=== PATIENT | female | born 1965 | race Caucasian/White ===

== ENCOUNTER 2017-10-13 01:48 | Observation (INO) | payer MEDICARE, SELFPAY | END 2017-10-14 09:35 | disposition home or self-care (01) | PROVIDERS: Admitting Provider Family Medicine; Emergency Provider Emergency Medicine; Visit Provider Family Medicine | DX: E86.0 Dehydration (principal); A08.11 Acute gastroenteropathy due to Norwalk agent; Z23 Encounter for immunization | CPT/HCPCS: 36415; 74176; 80048; 80053; 82150; 83690; 85025; 87275; 87276; 87507; 90686; 90732; 96365; 96366; 96375; 96376; 99285; G0378; J2405 ==

== ENCOUNTER → 2018-02-05 12:49 | Outpatient (CLI) | payer MEDICARE, SELFPAY ==
--- NOTE | 2018-02-05 12:52 | MM_ITS ---
MM Dig SC mamm implant BI CAD CAD Screening ORDERING PHYSICIAN : Kel Crocker MD PATIENT AGE: 52 years GENDER: Female INDICATION: Routine screening. Taking Premarin previously years but not currently as per history sheet. No new complaints. Bilateral breast implants. Family history. Niece breast cancer age 39 COMPARISON: Previous mammograms: May TECHNIQUE:.Zehra technique utilized. CC & MLO images were obtained of the breast tissue overlying implant, as well as a second set of images including the breast implant. Mammography is inherently limited due to the implants is a could obscure areas of breast R2 CAD reviewed. FINDINGS: ======== RIGHT BREAST:. Stable appearance to the right breast significant new findings. LEFT BREAST: Minimal asymmetric area density noted deep left breast overlying implant - located inferiorly & slightly medial. I believe is most likely stable feature with similar focal fibroglandular density seen on previous mammogram of most evident on 2014.... I would also note asymmetric area of minimal fibroglandular density seen dating back to 2010 -( the mammogram prior to implant placement). Today's technique slightly accentuates this what appears to be fibroglandular density on some of today's views but doubt there is been any significant change and annual follow-up would be adequate .. However with this I would recommend emphasized & encouraged self breast examination and follow-up bilateral mammogram in one year .. If any palpable areas arise a low threshold for ultrasound and spot views would be recommended to further evaluate . I would again note that breast implants do inherently decrease sensitivity of mammography & limit visualization of breast ==IMPRESSION: ======== No new areas of significant concern. Follow-up in one year adequate . Bilateral breast implants with Stable mild asymmetry in the breast tissue overlying the implants I would encourage self breast examination and emphasized and encouraged bilateral follow-up in not over one year for ongoing evaluation.. If any palpable areas arise low threshold for ultrasound and spot views would be encouraged BI-RADS Category: 2 Benign Finding(s) RECOMMENDED FOLLOW-UP: 1YR - 1 YEAR FOLLOW-UP (A letter has been sent to the patient regarding results of the study.)
== END ==
PROVIDERS: Family Provider Nurse Practitioner Family; PCP Nurse Practitioner Family; Visit Provider Obstetrics & Gynecology
DX: Z12.31 Encounter for screening mammogram for malignant neoplasm of breast (principal)
CPT/HCPCS: 77067

== ENCOUNTER → 2018-03-23 08:59 | Outpatient (CLI) | payer MEDICARE, SELFPAY ==
--- NOTE | 2018-03-23 10:00 | XR_ITS ---
EXAM: XR thoracic spine 3V HISTORY: ITS.REASON: UPPER BACK PAIN Comparison: None FINDINGS: There is a the mid thoracic scoliosis convex right measuring 26 degrees with a compensatory lower thoracic scoliosis convex left measuring 15 degrees. There is mild multilevel degenerative disc disease from T3 to T8. No acute fracture or dislocation. No lytic or blastic change. There is lordosis of the lower thoracic spine as well. IMPRESSION: Thoracic scoliosis with degenerative changes. No acute finding
== END ==
PROVIDERS: PCP Nurse Practitioner Family; Visit Provider Nurse Practitioner Family
DX: M54.6 Pain in thoracic spine (principal)
CPT/HCPCS: 72072

== ENCOUNTER → 2018-03-31 07:48 | Outpatient (CLI) | payer MEDICARE, SELFPAY ==
--- NOTE | 2018-03-31 07:56 | MR_ITS ---
MR lumbar spine wo con, MR 3-d myelogram/MRCP HISTORY: Rt sided LBP. RT leg pain. Symptoms getting worse. Bilateral Leg ache. Swelling Bilateral Ankle RT is worse. ITS.REASON: LOW BACK PAIN WITH SCIATICA ORDERING PHYSICIAN: Kika Perkins PATIENT AGE: 53 years Comparison: 10/13/2017 TECHNIQUE: Standard multiplanar multiecho sequences are performed without contrast. 3-D MIP and myelographic images are also rendered and reviewed FINDINGS: The spinal cord ends at the T12 level. L2-L3: There is kyphosis of the upper lumbar spine with 4 millimeters retrolisthesis of L2 on L3. Degenerative disc disease at L2-L3 with bulging disc. Anterior osteophytes are present at that level.There is mild bilateral lateral recess narrowing. L3-L4: Minimal retrolisthesis of L3 on L4 of 3 mm with bulging disc L4-5: Mild concentric bulging disc along with mild facet and ligamentum flavum hypertrophy with mild bilateral foraminal narrowing. The bulging disc slightly eccentric towards the left. L5-S1: Unremarkable. 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 There has been a prior right nephrectomy. IMPRESSION: 1. Kyphosis of the upper lumbar spine with degenerative disc disease at L2-L3 and bulging disc and mild retrolisthesis of L2 on L3 and L3 on L4 with mild bilateral lateral recess narrowing at L2-L3 2. Bulging disc slightly eccentric towards the left with mild bilateral foraminal narrowing at L4-5 3. No canal stenosis or extruded herniated disc
== END ==
PROVIDERS: Family Provider Nurse Practitioner Family; PCP Nurse Practitioner Family; Visit Provider Nurse Practitioner Family
DX: M54.40 Lumbago with sciatica, unspecified side (principal)
CPT/HCPCS: 72148; 76376

== ENCOUNTER → 2018-09-23 11:51 | Outpatient (CLI) | payer MEDICARE, SELFPAY ==
[2018-09-23 13:15] LABS: Anion Gap 13.3 mEq/L (5-15); Blood Urea Nitrogen 8 mg/dL (7-18); Calcium 8.5 mg/dL (8.5-10.1); Carbon Dioxide 28 mmol/L (21.0-32.0); Chloride 104 mmol/L (98-107); Creatinine,Serum 1.01 mg/dL (0.55-1.02); Estimated Glomerular Filt Rate 57 ml/min (>60); GFR (African American) 69 ML/MIN (>60); Glucose 108 mg/dL (74-106); Potassium 4.3 mmoL/L (3.5-5.1); Sodium 141 mmol/L (136-145)
== END ==
PROVIDERS: Visit Provider Urology
DX: Q60.0 Renal agenesis, unilateral (principal); R39.89 Other symptoms and signs involving the genitourinary system
CPT/HCPCS: 36415; 80048

== ENCOUNTER 2019-03-25 19:37 | Observation (INO) | payer MEDICARE, SELFPAY ==
[2019-03-25] VITALS (7 sets, daily range): BP systolic 100–129; BP diastolic 57–77; PULSE 67–75; RESP 17–20; TEMP 36.1–36.9; O2SAT 94–99; BMI 29.7; BMI 24.4
--- NOTE | 2019-03-25 19:47 | XR_ITS ---
XR chest 2V HISTORY: Vomiting weakness 2 days. Smoker. .: chills, weakness ORDERING PHYSICIAN: Augustine Davies MD PATIENT AGE: 54 years Technique: PA and lateral chest COMPARISON: January 2017 & October 2015 CXR 2 view Also T-spine plain films 03/23/2018 FINDINGS: Lungs clear no active disease. No focal pneumonia No pneumothorax. No pleural effusion. . Large dense breasts with bilateral breast implants and & account for diffuse increased density towards lung bases The heart, mary grace, and mediastinal structures satisfactory. The heart is normal in size with normal pulmonary vascularity . scoliosis of thoracic spine again noted and have been previously discussed/reported.. Most notable is the dextroscoliosis at the mid T-spine; also with gradual levoscoliosis lower T-spine.. Lateral film again shows a slight reversal of the normal thoracic curvature these features are stable since at least October 2015 chest 2 view IMPRESSION: ...... Lungs clear with no active disease. Scoliosis T-spine again noted.
--- NOTE | 2019-03-25 19:49 | CT_ITS ---
CT abdomen pelvis wo con INDICATION: Lower abdominal pain. Vomiting. Chills. Weakness symptoms 2 days. Previous cholecystectomy, hysterectomy. Right kidney removal. . ORDERING PHYSICIAN: Augustine Davies MD PATIENT AGE: 54 years COMPARISON: CT abdomen pelvis October 13, 2017 TECHNIQUE: No oral nor IV contrast utilized. No IV contrast utilized as per Dr. Ellington given the patient's GFR 44. Axial images obtained with sagittal and coronal reformats. All CT scans at the facility use one or more dose reduction, viz: automated exposure control, ma/kV adjustment per patient size (including targeted exams where dose is matched to indication, i.e. head), or iterative reconstruction technique. FINDINGS: Lung bases no active disease. Heart normal size. Bilateral breast implants noted. Abdomen/Pelvis:. Lack of oral and IV contrast decreases sensitivity somewhat . Liver. No focal lesion. Borderline fatty changes. Gallbladder. Surgically removed with clips right upper quadrant. No biliary ductal dilatation. Pancreas: Noncontrast images unremarkable Spleen unremarkable. Adrenals unremarkable. tract: Right kidney removed. Left kidney: Satisfactory with perhaps mild hypertrophy. Stable.. No significant retroperitoneal or mesenteric nor pelvic adenopathy. No free fluid abdomen or pelvis Pelvis. Urinary bladder satisfactory with upper normal wall thickness likely due to lack of distention. No free fluid at pelvis. No neck solid masses.. GI tract.: Large bowel. Diffuse wall thickening at the Transverse Colon extending to both flexures that this appearance suggesting colitis. Most likely infectious/inflammatory colitis.: Liquid stool is seen at the right colon with air-fluid levels here and to lesser transverse colon. The terminal ileum in region of appendix unremarkable. Small bowel.:. No dilatation. Areas of upper normal wall thickness small bowel Bones.. Disc changes with slight retrolisthesis of L2 on 3 again noted. Dural ectasia and/or perineural cyst expanding the spinal canal at the sacrum & foramen upper sacrum. The same appearance as was seen on previous study dating back to 2017. ...... IMPRESSION...... 1. Diffuse mild wall thickening transverse colon and flexures. Reflecting infectious or inflammatory colitis involving transverse colon. Liquid stool developing at right colon. 2. Small bowel areas of borderline wall thickening which could reflect associated enteritis . Upper normal fluid No bowel dilatation or obstruction. Appendix & terminal ileum WNL 3. Long-standing Right nephrectomy. No associated findings at right renal fossa. No adenopathy.
[2019-03-25 20:02] LABS: Basophils % 0.1 % (0.1-2.0); Eosinophils % 0.4 % (0.1-12.0); Hematocrit 46.8 % (37.0-47.0); Hemoglobin 15.1 g/dL (12.2-16.2); Mean Corpuscular HGB Conc 32.2 g/dL (31.8-35.4); Mean Corpuscular Hemoglobin 27.9 pg (27.0-31.2); Mean Corpuscular Volume 86.7 fl (81-99); Mean Platelet Volume 10.1 fl (7.4-10.4); Monocytes # 0.3 K/mm3 (0.1-1.0); Monocytes % 3.2 % (1.7-9.3); Neutrophils # 4.5 K/mm3 (1.8-7.8); Neutrophils % 51.3 % (37.0-80.0); Platelet Count 358 K/mm3 (142-424); Red Cell Distribution Width 11.8 % (11.5-17.5); White Blood Count 8.8 K/mm3 (4.8-10.8)
[2019-03-25 20:10] LABS: Microscopic, Urine URINE MICROSCOPIC (MICROSCOPIC)
[2019-03-25 20:11] LABS: Appearance,Urine CLEAR (Clear); Blood, Urine Negative (Negative); Color,Urine YELLOW (Yellow); Glucose,Urine (UA) 1+ (Negative); Ketones,Urine TRACE (Negative); Leukocyte Esterase,Urine Negative (Negative); Nitrate,Urine Negative (Negative); Protein,Urine 2+ (Negative); Specific Gravity, Urine 1.025 (1.005-1.030); Urobilinogen,Urine 0.2 EU/dl (0.2)
[2019-03-25 20:13] LABS: Strep Scrn Group A (Rapid) Negative (Negative)
[2019-03-25 20:13] LABS: Bilirubin,Urine Negative (Negative)
[2019-03-25 20:14] LABS: Amorphous Sediment,Urine 2+ /lpf; Mucus,Urine 2+ /lpf
--- NOTE | 2019-03-25 20:15 | HMH.EDNVD ---
ED Disposition Clinical Impression: Colitis Disposition: Admitted as Observation Condition on Discharge: Good Instructions: DI for Acute Abdomen Referrals: Kika Perkins [Primary Care Provider] - - Critical Care Critical Care Time: No Attestation: On 03/25/19, the high probability of a clinically significant, sudden or life threatening deterioration of the following system(s) required my full and direct attention, intervention and personal management. The time I documented below is in addition to time spent performing reported procedures but includes the following listed in this critical care notation. Medical Decision Making - Medical Records Medical records reviewed: Yes: I reviewed the patient's medical records. - Fernando Inquiry Pt receiving controlled substance: No Vital Signs: 03/25/19 19:38 03/25/19 19:58 03/25/19 20:25 Temperature 97.4 F L 97.0 F L Temperature Source Oral Rectal Pulse Rate [Right Radial] 75 70 Respiratory Rate 18 18 Blood Pressure [Right Arm] 114/64 129/77 Blood Pressure Mean [Right Arm] 80 94 Blood Pressure Source [Right Arm] Automatic Cuff Blood Pressure Position [Right Arm] Sitting 02 Sat by Pulse Oximetry 99 97 Oxygen Delivery Method Room Air 03/25/19 20:59 03/25/19 22:00 Temperature Temperature Source Pulse Rate [Right Radial] 69 70 Respiratory Rate 18 20 Blood Pressure [Right Arm] 120/65 100/57 L Blood Pressure Mean [Right Arm] 83 71 Blood Pressure Source [Right Arm] Automatic Cuff Blood Pressure Position [Right Arm] Sitting 02 Sat by Pulse Oximetry 97 94 L Oxygen Delivery Method Room Air - Lab Data Lab results reviewed: Yes: I reviewed the patient's lab results. Lab Results 03/25/19 19:55: WBC 8.8, RBC 5.40, Hgb 15.1, Hct 46.8, MCV 86.7, MCH 27.9, MCHC 32.2, RDW 11.8, Plt Count 358, MPV 10.1, Neut % (Auto) 51.3, Lymph % (Auto) 45.0, [place] % (Auto) 3.2, Eos % (Auto) 0.4, Baso % (Auto) 0.1, Neut # (Auto) 4.5, Lymph # (Auto) 4.0, [place] # (Auto) 0.3, Eos # (Auto) 0.0, Baso # (Auto) 0.0 03/25/19 19:55: Sodium 143, Potassium 3.5, Chloride 104, Carbon Dioxide 20 L, Anion Gap 22.5 H, BUN 11, Creatinine 1.27 H, Estimated Creat Clear 68, Estimated GFR 44 L, Est GFR ( Amer) 53 L, Glucose 198 H, Calcium 9.0, Total Bilirubin 0.5, AST 17, ALT 15, Alkaline Phosphatase 83, Total Protein 6.7, Albumin 3.3 L, Globulin 3.4 H, Albumin/Globulin Ratio 1.0 L, Amylase 61, Lipase 91 03/25/19 19:55: Lactate 2.6 H 03/25/19 19:55: Influenza Type A Ag Negative, Influenza Type B Ag Negative 03/25/19 19:55: Group A Strep Rapid Negative 03/25/19 20:07: Urine Color Yellow, Urine Appearance Clear, Urine pH 7.0, Ur Specific [place] 1.025, Urine Protein 2+, Urine Glucose (UA) 1+, Urine Ketones Trace, Urine Blood Negative, Urine Nitrate Negative, Urine Bilirubin Negative, Urine Urobilinogen 0.2, Ur Leukocyte Esterase Negative, Ur Squamous Epith Cells 10-20, Amorphous Sediment 2+, Urine Mucus 2+ Result diagrams: 03/25/19 19:55 03/25/19 19:55 Orders (Tests/Meds): ED MEDICATIONS Generic Name Dose Route Start Last Admin Trade Name Freq PRN Reason Stop Dose Admin Sodium Chloride 1,000 mls @ 999 mls/hr 03/25/19 20:00 03/25/19 20:15 Sod Chlor 0.9% 1000ml Bag IV 03/25/19 21:00 999 mls/hr .Q1H1M AUDIE Administration Sodium Chloride 1,000 mls @ 999 mls/hr 03/25/19 21:15 03/25/19 21:42 Sod Chlor 0.9% 1000ml Bag IV 03/25/19 22:15 999 mls/hr .Q1H1M AUDIE Administration Discontinued Medications Generic Name Dose Route Start Last Admin Trade Name Freq PRN Reason Stop Dose Admin Acetaminophen 1,000 mg 03/25/19 22:08 03/25/19 22:11 Tylenol 500mg Tablet PO 03/25/19 22:09 1,000 mg ONCE ONE Administration ORDERS Category Date Time Status CT abdomen pelvis wo con Stat Cat Scan 03/25/19 19:49 Taken XR chest 2V Stat Exams 03/25/19 19:47 Taken CRP [C-Reactive Protein] Stat Lab 03/25/19 22:28 Ordered Diarrhea 6-11 Panel, Cdiff PCR Stat Lab
[2019-03-25 20:23] LABS: Alanine Aminotransferase 15 U/L (12-78); Albumin Level 3.3 gm/dL (3.4-5.0); Alkaline Phosphatase 83 U/L (46-116); Amylase 61 U/L (25-115); Anion Gap 22.5 mEq/L (5-15); Aspartate Amino Transferase 17 U/L (15-37); Bilirubin,Total 0.5 mg/dL (0.2-1.0); Blood Urea Nitrogen 11 mg/dL (7-18); Carbon Dioxide 20 mmol/L (21.0-32.0); Chloride 104 mmol/L (98-107); Creatinine Clearance Estimated 68 mL/min (50-200); Creatinine,Serum 1.27 mg/dL (0.55-1.02); Estimated Glomerular Filt Rate 44 ml/min (>60); GFR (African American) 53 ML/MIN (>60); Globulin 3.4 gm/dl (1.3-3.2); Glucose 198 mg/dL (74-106); Lipase 91 u/L (73-393); Potassium 3.5 mmoL/L (3.5-5.1); Sodium 143 mmol/L (136-145); Total Protein,Serum 6.7 gm/dL (6.4-8.2)
[2019-03-25 20:29] LABS: Lactic Acid 2.6 mmol/L (0.4-2.0)
--- NOTE | 2019-03-25 22:33 | PC.NURSE ---
DR GODFREY CONSULTING WITH DR PEREA CONCERNING ADMIT AT THIS TIME.
[2019-03-25 22:40] LABS: C-Reactive Protein 2.7 mg/L (0.0-0.9)
[2019-03-25 23:13] LABS: Erythrocyte Sedimentation Rate 2 mm/hr (0-30)
--- NOTE | 2019-03-25 23:26 | PC.NURSE ---
LATE ENTRY: @ 2315 ARRIVED TO FLOOR, PER W/C, FROM ED.
[2019-03-25 23:58] LABS: Reflex Lactic Add Lactic Reflex
--- NOTE | 2019-03-25 23:59 | PC.NURSE ---
ON ADMISSION PT REPORTS I TOOK A COLD/SINUS MEDICATION AND CIPROFLOXACIN TO HELP WITH MY SYMPTOMS BUT AFTER I TOOK THOSE MEDICINES I FELT BURNING AND ITCHING ALL OVER THEN, SWELLING IN MY MOUTH AND I COULDN'T BREATHE. PT REPORTS TO THIS RN THAT SHE REPORTED THIS TO ER PHYSICIAN. PT UNABLE TO IDENTIFY THE SPECIFIC COLD AND SINUS MEDICATION THAT SHE TOOK AND COULD ONLY IDENTIFY THE CIPROFLOXACIN, CIPRO WAS ADDED AN ALLERGY BASED OF THIS INFORMATION DISCOVERED ON ADMISSION. THIS RN REPORTED THIS TO PRIMARY RN, Irene KUMAR.
[2019-03-26] VITALS: O2SAT 97
[2019-03-26 00:43] LABS: Lactic Acid Follow Up (RFLX 1) 1.7 (0.4-2.0)
[2019-03-26 04:00] VITALS: BP 124/68; PULSE 57; RESP 18; TEMP 36.9; O2SAT 96
--- NOTE | 2019-03-26 04:10 | PC.NURSE ---
Pt. has rested some since admission. Is alert and oriented with pt. being very fatigued and lethargic. Pt. has complained of a headache which is being treated by medication given from DEC. Pt. has not complained of any N/V at this time. Will continue to monitor.
[2019-03-26 05:07] VITALS: BMI 24.4
[2019-03-26 06:22] LABS: Basophils % 0.2 % (0.1-2.0); Eosinophils # 0.2 K/mm3 (0.0-0.4); Eosinophils % 1.7 % (0.1-12.0); Hematocrit 46.5 % (37.0-47.0); Lymphocytes # 1.4 K/mm3 (0.7-4.5); Lymphocytes % 15.8 % (10-50); Mean Corpuscular HGB Conc 32.3 g/dL (31.8-35.4); Mean Corpuscular Hemoglobin 28.1 pg (27.0-31.2); Mean Corpuscular Volume 86.8 fl (81-99); Mean Platelet Volume 9.7 fl (7.4-10.4); Monocytes # 0.5 K/mm3 (0.1-1.0); Monocytes % 5.2 % (1.7-9.3); Neutrophils # 6.7 K/mm3 (1.8-7.8); Neutrophils % 77.1 % (37.0-80.0); Platelet Count 127 K/mm3 (142-424); Red Blood Count 5.36 M/mm3 (4.20-5.40); White Blood Count 8.7 K/mm3 (4.8-10.8)
[2019-03-26 06:33] LABS: Anion Gap 15.8 mEq/L (5-15); Blood Urea Nitrogen 10 mg/dL (7-18); Carbon Dioxide 23 mmol/L (21.0-32.0); Chloride 109 mmol/L (98-107); Creatinine Clearance Estimated 75 mL/min (50-200); Creatinine,Serum 0.95 mg/dL (0.55-1.02); Estimated Glomerular Filt Rate 61 ml/min (>60); GFR (African American) 74 ML/MIN (>60); Glucose 91 mg/dL (74-106); Magnesium 1.8 mg/dL (1.4-2.2); Potassium 3.8 mmoL/L (3.5-5.1); Sodium 144 mmol/L (136-145)
[2019-03-26 06:46] LABS: Calcium 7.6 mg/dL (8.5-10.1)
--- NOTE | 2019-03-26 07:33 | PC.NURSE ---
REPORT GIVEN TO Senthil JONES
--- NOTE | 2019-03-26 07:54 | HMH.HPDC ---
General - General Admission date:: 03/25/19 Discharge date: 03/26/19 *Admission Date: 03/25/19 *Chief complaint: Vomiting and diarrhea *History of present illness: 54-year-old female with glaucoma presented to the emergency department with 2 days of illness described as beginning with unrelenting vomiting beginning early morning and continuing throughout the day on . Last episode of vomiting was evening. Shortly after vomiting ceased patient developed profuse diarrhea which lasted most of the day Thursday. Patient very very weak and had developed headache. She came to our emergency department for evaluation. Patient also reported sinusitis type symptoms which are recurrent and chronic for her. She had taken an [id number] decongestant and cough medication which resulted in flushing and appearance of a rash on the chest. By the time she arrived at the emergency department rash was absent. In the ER patient underwent evaluation and was given large volume of fluids. Because of what was described as persistent retching and inability to keep down fluids at that time patient was admitted for observation. Patient does clarify this morning the last time she vomited was and she has held down small amounts of liquids since that time. She denies sick contacts. Diarrhea panel was ordered but patient has not had any diarrhea since admission either. CT scan performed in the ER showed some changes consistent with possible colitis in the transverse colon. This morning patient denies abdominal pain [facility] History I have reviewed the patient's past medical history: Yes Medical History: Reports:: Depression, Kidney Stones Denies:: Cancer, Diabetes Mellitus Type 1, Diabetes Mellitus Type 2, MRSA *Have you ever received a pneumonia vaccine?: No *Have you received a flu vaccine this season?: No Other Medical History: Reports: Glaucoma, Other Comment:: Glaucoma Other Surgeries: Yes: Cholecystectomy, Hysterectomy-Total, Other Amputation: No Fractures: No - *Social History Educational Level: Completed High School Smoking Status: Current every day smoker Tobacco Type: cigarettes # Packs/Day (cigarettes): 1 Alcohol Intake: never Substance Use Type: denies use *Occupational Status:: disabled Housing: house Household Members: spouse *Travel in the last 8 weeks: None - Psychiatric History Expresses thoughts of harming self/others: None Suicide Plan Description: No Plan Pschychiatric History:: Reports:: Depression Family Hx:: Hypertension, Diabetes, Coronary Artery Disease Review of Systems - Constitutional Reports body ache(s), Denies chills, Denies excessive sweating, Denies fatigue, Denies fever(s) - Eyes Reports blurry vision - ENT Reports dry mouth, Reports nasal congestion, Reports nasal discharge, Reports sinus pressure, Reports sore throat, Denies mouth pain - *Cardiovascular Denies chest pain - *Respiratory Denies chest congestion, Denies cough - *Neurologic Denies seizure-like activity Exam Vital signs and Labs for Last 24 Hours: Temp Pulse Resp BP Pulse Ox 98.5 F 57 L 18 124/68 96 03/26/19 04:00 03/26/19 04:00 03/26/19 04:00 03/26/19 04:00 03/26/19 04:00 Laboratory Results - last 24 hr 03/25/19 19:55: WBC 8.8, RBC 5.40, Hgb 15.1, Hct 46.8, MCV 86.7, MCH 27.9, MCHC 32.2, RDW 11.8, Plt Count 358, MPV 10.1, Neut % (Auto) 51.3, Lymph % (Auto) 45.0, [place] % (Auto) 3.2, Eos % (Auto) 0.4, Baso % (Auto) 0.1, Neut # (Auto) 4.5, Lymph # (Auto) 4.0, [place] # (Auto) 0.3, Eos # (Auto) 0.0, Baso # (Auto) 0.0 03/25/19 19:55: Sodium 143, Potassium 3.5, Chloride 104, Carbon Dioxide 20 L, Anion Gap 22.5 H, BUN 11, Creatinine 1.27 H, Estimated Creat Clear 68, Estimated GFR 44 L, Est GFR ( Amer) 53 L, Glucose 198 H, Calcium 9.0, Total Bilirubin 0.5, AST 17, ALT 15, Alkaline Phosphatase 83, Total Protein 6.7, Albumin 3.3 L, Globulin 3.4 H, Albumin/Globulin Ratio 1.0 L, Amylase 61, Lipase
--- NOTE | 2019-03-26 07:58 | P.HPDS_ITS ---
General - General Admission date:: 03/25/19 Discharge date: 03/26/19 *Admission Date: 03/25/19 *Chief complaint: Vomiting and diarrhea *History of present illness: 54-year-old female with glaucoma presented to the emergency department with 2 days of illness described as beginning with unrelenting vomiting beginning early morning and continuing throughout the day on . Last episode of vomiting was evening. Shortly after vomiting ceased patient developed profuse diarrhea which lasted most of the day Thursday. Patient very very weak and had developed headache. She came to our emergency department for evaluation. Patient also reported sinusitis type symptoms which are recurrent and chronic for her. She had taken an [id number] decongestant and cough medication which resulted in flushing and appearance of a rash on the chest. By the time she arrived at the emergency department rash was absent. In the ER patient underwent evaluation and was given large volume of fluids. Because of what was described as persistent retching and inability to keep down fluids at that time patient was admitted for observation. Patient does clarify this morning the last time she vomited was and she has held down small amounts of liquids since that time. She denies sick contacts. Diarrhea panel was ordered but patient has not had any diarrhea since admission either. CT scan performed in the ER showed some changes consistent with possible colitis in the transverse colon. This morning patient denies abdominal pain [facility] History I have reviewed the patient's past medical history: Yes Medical History: Reports:: Depression, Kidney Stones Denies:: Cancer, Diabetes Mellitus Type 1, Diabetes Mellitus Type 2, MRSA *Have you ever received a pneumonia vaccine?: No *Have you received a flu vaccine this season?: No Other Medical History: Reports: Glaucoma, Other Comment:: Glaucoma Other Surgeries: Yes: Cholecystectomy, Hysterectomy-Total, Other Amputation: No Fractures: No - *Social History Educational Level: Completed High School Smoking Status: Current every day smoker Tobacco Type: cigarettes # Packs/Day (cigarettes): 1 Alcohol Intake: never Substance Use Type: denies use *Occupational Status:: disabled Housing: house Household Members: spouse *Travel in the last 8 weeks: None - Psychiatric History Expresses thoughts of harming self/others: None Suicide Plan Description: No Plan Pschychiatric History:: Reports:: Depression Family Hx:: Hypertension, Diabetes, Coronary Artery Disease Review of Systems - Constitutional Reports body ache(s), Denies chills, Denies excessive sweating, Denies fatigue, Denies fever(s) - Eyes Reports blurry vision - ENT Reports dry mouth, Reports nasal congestion, Reports nasal discharge, Reports sinus pressure, Reports sore throat, Denies mouth pain - *Cardiovascular Denies chest pain - *Respiratory Denies chest congestion, Denies cough - *Neurologic Denies seizure-like activity Exam Vital signs and Labs for Last 24 Hours: Temp Pulse Resp BP Pulse Ox 98.5 F 57 L 18 124/68 96 03/26/19 04:00 03/26/19 04:00 03/26/19 04:00 03/26/19 04:00 03/26/19 04:00 Laboratory Results - last 24 hr 03/25/19 19:55: WBC 8.8, RBC 5.40, Hgb 15.1, Hct 46.8, MCV 86.7, MCH 27.9, MCHC 32.2, RDW 11.8, Plt Count 358, MPV 10.1, Neut % (Auto) 51.3, Lymph % (Auto) 45.0, [place] % (Auto) 3.2, Eos % (Auto) 0.4, Baso % (Auto) 0.1, Neut # (Auto) 4.5
[2019-03-26 08:00] VITALS: BP 138/73; PULSE 67; RESP 17; TEMP 36.9; O2SAT 96
--- NOTE | 2019-03-26 11:31 | HMH.PHAINT ---
DISCHARGE COUNSELING COMPLETED ON PATIENT. ONLY NEW PRESCRIPTION IS PHENERGAN TO BE TAKEN NEEDED FOR NAUSEA AND VOMITING. PATIENT IS TO CONTINUE ALL OTHER HOME MEDICATIONS. VERIFIED THAT NEW PRESCRIPTION WAS PRINTED OFF. -JESUS PIÑA PHARMD
--- NOTE | 2019-03-26 18:13 | PC.NURSE ---
Went over dc instructions with patient and family member; Dc instruction papers and prescription placed in pt's dc folder and placed on table. Showed pt and family member that dc folder was on table and both verbalized understanding; Dc folder found in room after pt left and was placed in banquet stewardess station. Pt called to inquire about it and I advised her it was at the banquet stewardess station along with her prescription. She said her would be in later to pick it up.
[2019-03-26 18:35] LABS: Amphetamine/Metha Screen,Urine Negative ng/mL (<1000); Barbiturates Screen,Urine Negative ng/mL (<200); Benzodiazepines Screen,Urine Negative ng/mL (<200); Cannabinoid Screen,Urine Negative ng/mL (<50); Cocaine Screen,Urine Negative ng/mL (<300); Methadone Screen,Urine Negative ng/mL (<300); Opiate Screen,Urine Positive ng/mL (<300); Phencyclidine Screen,Urine Negative ng/mL (<25)
== END 2019-03-26 09:28 | disposition home or self-care (01) ==
LOC: ER 22:37 → 2ND 22:47
PROVIDERS: Admitting Provider Family Medicine; Emergency Provider Emergency Medicine; PCP Nurse Practitioner Family; Visit Provider Family Medicine
DX: K52.89 Other specified noninfective gastroenteritis and colitis (principal); A04.8 Other specified bacterial intestinal infections; Z16.39 Resistance to other specified antimicrobial drug; Z79.899 Other long term (current) drug therapy; Z72.0 Tobacco use
CPT/HCPCS: 36415; 71046; 74176; 80048; 80053; 80305; 81001; 82150; 83605; 83690; 83735; 85025; 85651; 86140; 87040; 87077; 87186; 87275; 87276; 87430; 96365; 96367; 99285; G0378

== ENCOUNTER 2020-12-27 02:27 | Emergency (ER) | payer MEDICARE, SELFPAY ==
[2020-12-27 02:28] VITALS: BP 123/65; PULSE 84; RESP 14; TEMP 37.2; O2SAT 97; BMI 19.6
--- NOTE | 2020-12-27 02:45 | HMH.EDALLER ---
ED Disposition Clinical Impression: Adverse drug effect Qualifiers: Encounter type: initial encounter Qualified Code(s): T50.905A - Adverse effect of unspecified drugs, medicaments and biological substances, initial encounter Disposition: Home, Self-Care Condition on Discharge: Good Instructions: DI for Adverse Drug Reaction -- Other Additional Instructions: fluids and see pcp as needed Referrals: Kika Perkins [Primary Care Provider] - - Critical Care Critical Care Time: No Attestation: On 12/27/20, the high probability of a clinically significant, sudden or life threatening deterioration of the following system(s) required my full and direct attention, intervention and personal management. The time I documented below is in addition to time spent performing reported procedures but includes the following listed in this critical care notation. Medical Decision Making - Medical Records Medical records reviewed: Yes: I reviewed the patient's medical records. - Fernando Inquiry Pt receiving controlled substance: No Vital Signs: 12/27/20 02:28 Temperature 99.0 F Temperature Source Oral Pulse Rate [Right] 84 Respiratory Rate 14 Blood Pressure [Right Arm] 123/65 Blood Pressure Mean [Right Arm] 84 02 Sat by Pulse Oximetry 97 Oxygen Delivery Method Room Air - Lab Data Lab results reviewed: Yes: I reviewed the patient's lab results. Lab Results 12/27/20 02:55: WBC 6.3, RBC 4.17 L, Hgb 12.3, Hct 38.1, MCV 91.5, MCH 29.5, MCHC 32.2, RDW 12.3, Plt Count 134 L, MPV 9.2, Neut % (Auto) 84.3 H, Lymph % (Auto) 6.9 L, [place] % (Auto) 7.5, Eos % (Auto) 1.0, Baso % (Auto) 0.3, Neut # (Auto) 5.3, Lymph # (Auto) 0.4 L, [place] # (Auto) 0.5, Eos # (Auto) 0.1, Baso # (Auto) 0.0 12/27/20 02:55: Sodium 136, Potassium 4.2, Chloride 105, Carbon Dioxide 27, Anion Gap 8.2, BUN 12, Creatinine 1.00, Estimated Creat Clear 65, Estimated GFR 57 L, Est GFR ( Amer) 69, Glucose 108 H, Calcium 9.0, Total Bilirubin 0.4, AST 21, ALT 11 L, Alkaline Phosphatase 75, Total Protein 6.8, Albumin 4.1, Globulin 2.7, Albumin/Globulin Ratio 1.5 Result diagrams: 12/27/20 02:55 12/27/20 02:55 Orders (Tests/Meds): ED MEDICATIONS Generic Name Dose Route Start Last Admin Trade Name Freq PRN Reason Stop Dose Admin Sodium Chloride 1,000 mls @ 999 mls/hr 12/27/20 02:45 12/27/20 02:49 Sod Chlor 0.9% 1000ml Bag IV 12/27/20 03:45 999 mls/hr .Q1H1M AUDIE Administration Discontinued Medications Generic Name Dose Route Start Last Admin Trade Name Freq PRN Reason Stop Dose Admin Acetaminophen 1,000 mg 12/27/20 02:44 12/27/20 02:51 Acetaminophen 500mg Tab PO 12/27/20 02:45 Not Given ONCE ONE Ketorolac Tromethamine 30 mg 12/27/20 03:32 12/27/20 03:34 Ketorolac 30mg/Ml Vial IV 12/27/20 03:33 30 mg ONCE ONE Administration Ondansetron HCl 4 mg 12/27/20 02:44 12/27/20 02:49 Ondansetron 4mg/2ml Vial IV 12/27/20 02:45 4 mg ONCE ONE Administration - Reevaluation(s) Time: 03:34 Reevaluation #1: improved Allergic React/Insect Bite HPI - General Chief complaint: Weakness Stated complaint: poss reaction to J&J covid vaccine Time Seen by Provider: 12/27/20 02:35 Mode of Arrival - ED Triage: Ambulatory Source of Information: Patient, Relative, Medical Record Limitations: No Limitations - History of Present Illness HPI narrative: had covid-19 vaccine today now with fever and feels flu-like - MD complaint: other ( reaction to covid-19 vaccine ) Onset (ago): hour(s) Exposure: medication Treatment prior to arrival: other (tyenol) Allergies/Adverse Reactions: Allergies Allergy/AdvReac Type Severity Reaction Status Date / Time ciprofloxacin Allergy Severe Difficulty Verified 07/19/20 15:16 Breathing tramadol Allergy Verified 12/27/20 02:47 Severity: moderate - Related Data Home Medications Medication Instructions Recorded Confirmed gabapentin 600 mg tablet 900 mg PO TID ta
[2020-12-27 03:04] LABS: Basophils % 0.3 % (0.1-2.0); Eosinophils # 0.1 K/mm3 (0.0-0.4); Hematocrit 38.1 % (37.0-47.0); Hemoglobin 12.3 g/dL (12.2-16.2); Lymphocytes # 0.4 K/mm3 (0.7-4.5); Lymphocytes % 6.9 % (10-50); Mean Corpuscular HGB Conc 32.2 g/dL (31.8-35.4); Mean Corpuscular Hemoglobin 29.5 pg (27.0-31.2); Mean Corpuscular Volume 91.5 fl (81-99); Mean Platelet Volume 9.2 fl (7.4-10.4); Monocytes # 0.5 K/mm3 (0.1-1.0); Monocytes % 7.5 % (1.7-9.3); Neutrophils # 5.3 K/mm3 (1.8-7.8); Neutrophils % 84.3 % (37.0-80.0); Platelet Count 134 K/mm3 (142-424); Red Blood Count 4.17 M/mm3 (4.20-5.40); Red Cell Distribution Width 12.3 % (11.5-17.5); White Blood Count 6.3 K/mm3 (4.8-10.8)
[2020-12-27 03:10] LABS: Chloride 105 mmol/L (98-107); Potassium 4.2 mmoL/L (3.5-5.1); Sodium 136 mmol/L (136-145)
[2020-12-27 03:13] LABS: Alanine Aminotransferase 11 U/L (12-78); Albumin Level 4.1 g/dl (3.5-5.0); Albumin/Globulin Ratio 1.5 (1.1-1.8); Alkaline Phosphatase 75 U/L (38-126); Anion Gap 8.2 mEq/L (5-15); Aspartate Amino Transferase 21 U/L (14-36); Bilirubin,Total 0.4 mg/dl (0.2-1.3); Blood Urea Nitrogen 12 mg/dl (7-17); Carbon Dioxide 27 mmol/L (22.0-30.0); Creatinine Clearance Estimated 65 mL/min (50-200); Estimated Glomerular Filt Rate 57 ml/min (>60); GFR (African American) 69 ML/MIN (>60); Globulin 2.7 g/dL (1.3-3.2); Glucose 108 mg/dl (74-100); Total Protein,Serum 6.8 g/dl (6.3-8.2)
[2020-12-27 03:43] VITALS: BP 123/65; PULSE 84; RESP 14; TEMP 36.9; O2SAT 97
== END 2020-12-27 03:46 | disposition home or self-care (01) ==
PROVIDERS: Emergency Provider Emergency Medicine; PCP Nurse Practitioner Family
DX: R50.83 Postvaccination fever (principal); T50.B95A Adverse effect of other viral vaccines, initial encounter; Y92.009 Unspecified place in unspecified non-institutional (private) residence as the place of occurrence of the external cause; F33.1 Major depressive disorder, recurrent, moderate; Z87.442 Personal history of urinary calculi; F17.210 Nicotine dependence, cigarettes, uncomplicated
CPT/HCPCS: 80053; 85025; 96365; 96375; 99282; J2405

== ENCOUNTER → 2021-02-05 14:29 | Outpatient (CLI) | payer MEDICARE, SELFPAY ==
--- NOTE | 2021-02-05 | US_ITS ---
APPROVED REPORT Indications Claudication: Bilaterally Rest Pain: Bilaterally Bilateral pulse weakness Pressures/Indices Right Indices Left Indices Brachial 132.00 mmHg Brachial 122.00 mmHg Low Thigh 127.00 mmHg 0.96 Low Thigh 132.00 mmHg 1.00 Calf 129.00 mmHg 0.98 Calf 138.00 mmHg 1.05 Ankle(PT) 146.00 mmHg 1.11 Ankle(PT) 137.00 mmHg 1.04 Ankle(DP) 141.00 mmHg 1.07 Ankle(DP) 140.00 mmHg 1.06 Digit 117.00 mmHg 0.89 Digit 131.00 mmHg 0.99 Findings RT SHASTA=1.11 LT SHASTA=1.06 RT TPI=0.89 LT TPI=0.99 Conclusion Normal appearing resting noninvasive lower extremity arterial study. Electronically signed by : Dallin Ellington MD 02/05/2021 18:32:51
== END ==
PROVIDERS: PCP Nurse Practitioner Family; Visit Provider Nurse Practitioner Family
DX: R09.89 Other specified symptoms and signs involving the circulatory and respiratory systems (principal)
CPT/HCPCS: 93923

== ENCOUNTER → 2022-11-06 11:32 | Outpatient (CLI) | payer MEDICARE, SELFPAY ==
--- NOTE | 2022-11-06 11:38 | XR_ITS ---
FINAL REPORT CLINICAL HISTORY: right foot pain FINDINGS: AP, oblique and lateral views of the right foot were obtained. There is no prior exam for comparison. There is no acute fracture or dislocation. The joint spaces are preserved. Soft tissues are normal. IMPRESSION: No acute osseous abnormality of the right foot. Reviewed, Interpreted and Dictated by Carolyn Gtz MD Transcribed by Katerine Ramos Authenticated and [facility]
== END ==
PROVIDERS: PCP Nurse Practitioner Family; Visit Provider Nurse Practitioner Family
DX: M79.671 Pain in right foot (principal)
CPT/HCPCS: 73630

== ENCOUNTER 2023-02-25 14:08 | Emergency (ER) | payer MEDICARE, SELFPAY ==
--- NOTE | 2023-02-25 14:18 | EXP.UTC ---
Discharge Plan Disposition Patient Disposition: Home, Self-Care Condition: Good Prescriptions Prescriptions: No Action gabapentin 600 mg tablet 600 mg PO HS bupropion HCl [Wellbutrin XL] 300 mg tablet extended release 24 hr 300 mg PO DAILY buspirone 10 mg tablet 10 mg PO BID sumatriptan succinate 100 mg tablet 100 mg PO ONCE PRN omeprazole 40 mg capsule,delayed release(DR/EC) 40 mg PO DAILY oxycodone-acetaminophen 10-325 mg tablet 1 tab PO .COMPLEX Rx Instructions: 1 tab orally 5x daily; amlodipine 10 mg tablet 10 mg PO DAILY sertraline 50 mg tablet 50 mg PO DAILY montelukast 10 mg tablet 10 mg PO QPM estradiol 2 mg tablet See Rx Instructions .ROUTE .COMPLEX Qty: 90 0RF Dose Instruction: TAKE 1 TABLET EVERY DAY Rx Instructions: TAKE 1 TABLET EVERY DAY Referrals Follow up/Referrals: Kika Perkins [Primary Care Provider] - See instructions Activity Restrictions/Add. Instructions Additional Instructions/Restrictions: Follow up with your regular doctor to discuss your leg swelling. Sometimes this can be a medication side effect. Sometimes it can be other causes. No one but your primary care physician or your soldering inspector should change the blood pressure medication you are on. You will need your regular doctor to possibly switch your blood pressure medication to see if that helps your swelling. Eat a low sodium diet. Get plenty of exercise. Walking will help your legs pump the fluid back up your legs. GO TO THE ER FOR ANY WORSENING SYMPTOMS Clinical Impressions Clinical Impression: Leg edema Instructions Patient Instructions: DI for Peripheral Edema -- Bilateral, Low-Sodium Diet Discharge ED Provider: Dario Day [facility] General Stated complaint: feet and ankles swollen, pain Time Seen by Provider: 02/25/23 14:17 History of Present Illness Provider Complaint: She states that for the past 1 year she has had bilateral leg edema. She denies other complaints. She denies chest pain and shortness of breath. She denies any recent worsening of her swelling symptoms. Related Data Home Medications Medication Instructions Recorded Confirmed montelukast 10 mg tablet 10 mg PO QPM allergies 09/23/18 12/30/22 bupropion HCl 300 mg 24 hr tablet, 300 mg PO DAILY 05/16/22 12/30/22 extended release (Wellbutrin XL) buspirone 10 mg tablet 10 mg PO BID 05/16/22 12/30/22 amlodipine 10 mg tablet 10 mg PO DAILY 12/30/22 12/30/22 gabapentin 600 mg tablet 600 mg PO HS Pain 12/30/22 12/30/22 omeprazole 40 mg capsule,delayed 40 mg PO DAILY 12/30/22 12/30/22 release oxycodone-acetaminophen 10 mg-325 1 tab PO .COMPLEX 12/30/22 12/30/22 mg tablet sertraline 50 mg tablet 50 mg PO DAILY 12/30/22 12/30/22 sumatriptan succinate 100 mg tablet 100 mg PO ONCE PRN 12/30/22 12/30/22 Previous Rx's Medication Instructions Recorded estradiol 2 mg tablet See Rx Instructions .Route 01/22/23 .COMPLEX #90 tabs Allergies Allergy/AdvReac Type Severity Reaction Status Date / Time ciprofloxacin Allergy Severe Difficulty Verified 02/25/23 14:29 Breathing tramadol Allergy Verified 02/25/23 14:29 [facility] Disclaimer: The information contained in this section may have been updated after the patient was seen, as this information can be updated by other users. Medical History History of cataract History of deviated nasal septum Legally blind Surgical History History of breast implant History of LAVH History of right nephrectomy Social History Smoking Status: Current every day smoker tobacco type: cigarettes packs per day: 1 alcohol intake: never substance use type: denies use current occupational status: disabled Travel in the last 8 weeks: None hous
[2023-02-25 14:26] VITALS: BP 142/67; PULSE 61; RESP 20; TEMP 36.8; O2SAT 96; BMI 20.3
[2023-02-25 14:53] VITALS: BP 142/67; PULSE 61; RESP 20; TEMP 36.8
== END 2023-02-25 14:55 | disposition home or self-care (01) ==
PROVIDERS: Emergency Provider Nurse Practitioner Family; PCP Nurse Practitioner Family
DX: R60.0 Localized edema (principal); F17.210 Nicotine dependence, cigarettes, uncomplicated
CPT/HCPCS: 99203; 99212; G0463

== ENCOUNTER → 2023-05-06 10:15 | Outpatient (POV) | payer MEDICARE, SELFPAY ==
--- NOTE | 2023-05-06 11:09 | EXP.PAIN.OV ---
HPI Data of Consult Patient: new to practice Consult date: 05/06/23 Requesting Physician: Adilia Huffman APRN Primary Care Provider: Kika Perkins Consult Narrative Reason for consult: Neck pain, bilateral upper extremity pain, low back pain, bilateral lower e History of present illness: Ms. Schulz is a 58 year old female who presents today as a new patient. She is a self-referral. Today she rates her pain a 6 out of 10. Patient states that she has pain in her neck with radiating symptoms into her upper extremities as well as low back pain with radiating symptoms to her lower extremities. Patient has stated this is gone on for years and progressively worsened over time. Patient denies any specific trauma or injury that initially led to her symptoms. Patient does describe this as an aching, throbbing sensation with numbness and tingling. She does state that she has tried [id number] medications such as Tylenol and ibuprofen along with heat and ice and topicals with minimal improvement. Patient has been to physical therapy multiple times in the past with no additional relief. Patient has also been with pain management in [place] as well as in [place] where she did do multiple injections however those did not provide significant relief. Patient has been to a orthospine doctor, Oscar Huffman who was recommending surgery however she states that she was not interested in this option. She is coming to our office today because she states her current doctor from [place] is retiring. Patient does states she is currently managed with Percocet 10 mg 5 times a day and gabapentin 600 mg 3 times a day. Patient denies any recent imaging. Her Fernando is [phone]. Its been reviewed and appropriate. CC: Adilia Huffman APRN [facility] Disclaimer: The information contained in this section may have been updated after the patient was seen, as this information can be updated by other users. Medical History History of cataract History of deviated nasal septum Legally blind Surgical History History of breast implant History of [facility] History of right nephrectomy Social History Smoking Status: Current every day smoker tobacco type: cigarettes packs per day: 1 alcohol intake: never substance use type: denies use current occupational status: disabled Travel in the last 8 weeks: None household members: spouse housing: house Review of Systems Review of Systems Review of systems:: pertinent systems reviewed and negative unless documented below Review of systems (narrative): Review of Systems: General: No recent weight changes, no fever, no sleep disturbances Respiratory: No cough, no shortness of air, no recurring pulmonary infections Cardiovascular/peripheral vascular: No chest pain, no palpitations, no edema, no shortness of breath Gastrointestinal: No new onset incontinence, normal bowel movements reported Genitourinary: No new onset incontinence Musculoskeletal: Neck pain, bilateral upper extremity pain, low back pain, bilateral lower extremity pain Psychiatric: [Normal mood/affect] Neurological: [Denies weakness in extremities], [denies balance issues] Meds Home Medications and Allergies Home Medications Medication Instructions Recorded Confirmed Type montelukast 10 mg tablet 10 mg PO QPM allergies 09/23/18 12/30/22 History bupropion HCl 300 mg 24 hr tablet, 300 mg PO DAILY 05/16/22 12/30/22 History extended release (Wellbutrin XL) buspirone 10 mg tablet 10 mg PO BID 05/16/22 12/30/22 History amlodipine 10 mg tablet 10 mg PO DAILY 12/30/22 12/30/22 History gabapentin 600 mg tablet 600 mg PO HS Pain 12/30/22 12/30/22 History omeprazole 40 mg capsule,delayed 40 mg PO DAILY 12/30/22 12/30/22 History release oxycodone-acetaminophen 10 mg-325 1 tab PO .COMPLE
[2023-05-06 11:49] VITALS: BP 128/65; PULSE 76; RESP 18; O2SAT 98; BMI 20.9
== END | disposition home or self-care (01) ==
PROVIDERS: PCP Nurse Practitioner Family; Visit Provider Nurse Practitioner Family
DX: M54.2 Cervicalgia (principal); M54.12 Radiculopathy, cervical region; G89.4 Chronic pain syndrome; M51.16 Intervertebral disc disorders with radiculopathy, lumbar region
CPT/HCPCS: 99202; G0463

== ENCOUNTER → 2023-05-19 15:08 | Outpatient (CLI) | payer MEDICARE, SELFPAY ==
--- NOTE | 2023-05-19 15:14 | XR_ITS ---
FINAL REPORT CLINICAL HISTORY: PAIN FINDINGS: CERVICAL SPINE Six views demonstrate no acute fracture. There is mild and moderate degenerative change. There is kyphosis centered at C5. There is mild bilateral C6-7 neuroforaminal narrowing. IMPRESSION: Mild and moderate degenerative change. Kyphosis centered at C5. Mild bilateral C6/7 neuroforaminal narrowing. Reviewed, Interpreted and Dictated by Aravind Montoya III, MD Transcribed by Prosper Oliva Authenticated and [facility]
--- NOTE | 2023-05-19 15:14 | XR_ITS ---
FINAL REPORT CLINICAL HISTORY: PAIN, numbness down legs sometimes FINDINGS: LUMBAR SPINE Five views demonstrate no acute fracture. There is moderate degenerative change. There is mild retrolisthesis of L2 on L3 and L3 on L4. There is mild vascular calcifications. Postoperative changes of the right abdomen are seen. IMPRESSION: Moderate degenerative change. Mild retrolisthesis of L2 on L3 and L3 on L4. Reviewed, Interpreted and Dictated by Aravind Montoya III, MD Transcribed by Prosper Oliva Authenticated and [facility]
== END ==
PROVIDERS: PCP Nurse Practitioner Family; Visit Provider Anesthesiology
DX: M54.2 Cervicalgia (principal); M54.50 Low back pain, unspecified
CPT/HCPCS: 72050; 72110

== ENCOUNTER → 2023-05-20 13:08 | Outpatient (POV) | payer MEDICARE, SELFPAY ==
--- NOTE | 2023-05-20 13:16 | EXP.PAIN.SOA ---
[facility] Pain Management SOAP Note Subjective:: Patient is a pleasant 58-year-old female who presents today for follow-up and medication refill. We are currently treating the patient for degenerative disc disease of lumbar spine with lumbar radiculopathy symptoms, chronic pain syndrome, neck pain with cervical radiculopathy. Today she rates her pain a 8 out of 10. Patient denies any new trauma or injury. She does state that her back is bothering her a little bit more today and that she did not sleep as well. At her last visit we did prescribe restless leg medication which she stated did provide better improvement of her symptoms. She states that she has been able to sleep better without being woken up by her leg symptoms. Patient is currently managed with ropinirole 0.25 mg at bedtime, [place] 5 mg twice a day and gabapentin 600 mg twice a day. Patient denies any side effects from this medication. She does state the last prescription she was only able to product picker a 7-day dose of the pain medication. She does state that she did previously have additional leftover of her Percocet from a previous provider and that she has used those a couple of times in between the Kaycee. Her Fernando is [phone]. Its been reviewed and appropriate. Review of Systems: General: No recent weight changes, no fever, no sleep disturbances Respiratory: No cough, no shortness of air, no recurring pulmonary infections Cardiovascular/peripheral vascular: No chest pain, no palpitations, no edema, no shortness of breath Gastrointestinal: No new onset incontinence, normal bowel movements reported Genitourinary: No new onset incontinence Musculoskeletal: Low back pain Psychiatric: [Normal mood/affect] Neurological: [Denies weakness in extremities], [denies balance issues] Objective:: Physical Exam: General: Alert and oriented x3, no acute distress, pleasant and cooperative Lungs: Respirations even and unlabored, symmetrical chest expansion Eyes: PERRL Musculoskeletal: Flexion and extension of lumbar [spine] somewhat guarded secondary to pain, [antalgic gait noted] Neurological: Speech clear, no gross sensory deficit FINAL REPORT CLINICAL HISTORY: PAIN, numbness down legs sometimes FINDINGS: LUMBAR SPINE Five views demonstrate no acute fracture. There is moderate degenerative change. There is mild retrolisthesis of L2 on L3 and L3 on L4. There is mild vascular calcifications. Postoperative changes of the right abdomen are seen. IMPRESSION: Moderate degenerative change. Mild retrolisthesis of L2 on L3 and L3 on L4. Reviewed, Interpreted and Dictated by Aravind Montoya III, MD Transcribed by Prosper Oliva Authenticated and [facility] FINAL REPORT CLINICAL HISTORY: PAIN FINDINGS: CERVICAL SPINE Six views demonstrate no acute fracture. There is mild and moderate degenerative change. There is kyphosis centered at C5. There is mild bilateral C6-7 neuroforaminal narrowing. IMPRESSION: Mild and moderate degenerative change. Kyphosis centered at C5. Mild bilateral C6/7 neuroforaminal narrowing. Reviewed, Interpreted and Dictated by Aravind Montoya III, MD Transcribed by Prosper Oliva Authenticated and [facility] Assessment:: Degenerative disc disease of lumbar spine with lumbar radiculopathy symptoms, chronic pain syndrome, neck pain with cervical radiculopathy symptoms Plan:: I will refill the patient's Kaycee 5 mg twice a day, ropinirole 0.25 mg at bedtime, gabapentin 600 mg twice a day and provide a 1 month supply of these medications. Patient will return to clinic in 1 month for reevaluation of symptoms, medication refill and plan of care. Patient has been advised of risks of oversedation with the prescribed medication. Narcan has been offered to the patient in the event of oversedation. Jaspreet
[2023-05-20 14:55] VITALS: BP 106/67; PULSE 67; RESP 18; O2SAT 93; BMI 20.3
== END | disposition home or self-care (01) ==
PROVIDERS: Visit Provider Nurse Practitioner Family
DX: M51.16 Intervertebral disc disorders with radiculopathy, lumbar region (principal); G89.4 Chronic pain syndrome; M54.12 Radiculopathy, cervical region
CPT/HCPCS: 99212; G0463

== ENCOUNTER → 2023-06-10 11:23 | Outpatient (POV) | payer MEDICARE, SELFPAY ==
--- NOTE | 2023-06-10 11:47 | EXP.PAIN.SOA ---
[facility] Pain Management SOAP Note Subjective:: Patient is a pleasant 58-year-old female who presents today for medication refill and follow-up. We are currently treating the patient for degenerative disc disease of lumbar spine with lumbar radiculopathy symptoms, chronic pain syndrome, neck pain with cervical radiculopathy symptoms. Today she rates her pain a 7 out of 10. Patient denies any new trauma or injury. She states she continues to have worsening pain in her neck and low back. Patient does believe part of her reason for her increased pain is related to that she is not on as much medication as she was previously before establishing care at our office. Patient was previously on Percocet 10 mg 5 times a day and gabapentin 600 mg 3 times a day. Patient is currently managed with [place] 5 mg twice a day, ropinirole 0.25 mg at bedtime and gabapentin 600 mg twice a day. Patient denies any side effects from this medication. Her Fernando is [phone]. Its been reviewed and appropriate Review of Systems: General: No recent weight changes, no fever, no sleep disturbances Respiratory: No cough, no shortness of air, no recurring pulmonary infections Cardiovascular/peripheral vascular: No chest pain, no palpitations, no edema, no shortness of breath Gastrointestinal: No new onset incontinence, normal bowel movements reported Genitourinary: No new onset incontinence Musculoskeletal: Neck pain, low back pain Psychiatric: [Normal mood/affect] Neurological: [Denies weakness in extremities], [denies balance issues] Objective:: Physical Exam: General: Alert and oriented x3, no acute distress, pleasant and cooperative Lungs: Respirations even and unlabored, symmetrical chest expansion Eyes: PERRL Musculoskeletal: Flexion and extension of lumbar [spine] somewhat guarded secondary to pain, [antalgic gait noted] Neurological: Speech clear, no gross sensory deficit Assessment:: Degenerative disc disease of lumbar spine with lumbar radiculopathy symptoms, neck pain with cervical radiculopathy symptoms, chronic pain syndrome Plan:: I have discussed with the patient that I will increase her [place] 5 mg to 3 times daily and gabapentin 600 mg to 3 times daily and provide a 1 month supply of this medication. I will also send in refills of her ropinirole 0.25 mg at bedtime. Patient will return to clinic in 1 month for reevaluation of symptoms and plan of care. Patient has been advised of risks of oversedation with the prescribed medication. Narcan has been offered to the patient in the event of oversedation. Patient has been advised that a family member should also be educated regarding administration of Narcan. Patient has been instructed to contact the clinic with any concerns before the next appointment. Dr. Ortiz has reviewed this note and agrees with this plan of care. This note was dictated using voice recognition software and make contain errors or omissions. [facility] Disclaimer: The information contained in this section may have been updated after the patient was seen, as this information can be updated by other users. Medical History History of cataract History of deviated nasal septum Legally blind Surgical History History of breast implant History of LAVH History of right nephrectomy Social History (Updated 05/06/23 @ 11:50 by Sayra Moreno RN) Smoking Status: Current every day smoker tobacco type: cigarettes packs per day: 1 alcohol intake: never substance use type: denies use current occupational status: disabled Travel in the last 8 weeks: None household members: spouse housing: house
[2023-06-10 12:51] VITALS: BP 127/68; PULSE 74; RESP 18; O2SAT 97; BMI 20.3
== END | disposition home or self-care (01) ==
PROVIDERS: Visit Provider Nurse Practitioner Family
DX: M51.16 Intervertebral disc disorders with radiculopathy, lumbar region (principal); G89.4 Chronic pain syndrome; M54.12 Radiculopathy, cervical region
CPT/HCPCS: 99212; G0463

== ENCOUNTER → 2023-06-26 13:21 | Outpatient (POV) | payer MEDICARE, SELFPAY ==
[2023-06-26 14:32] VITALS: BP 117/78; PULSE 74; RESP 18; O2SAT 97; BMI 44.8
--- NOTE | 2023-06-26 15:06 | EXP.PAIN.SOA ---
[facility] Pain Management SOAP Note Subjective:: This patient is a pleasant 58-year-old female that comes our clinic today for follow-up visit and medication refill. Patient is currently being managed by our clinic with [place] 5 mg 1 p.o. twice daily. Ropinirole 0.25 mg 1 p.o. at bedtime. Gabapentin 600 mg 1 p.o. twice daily. The patient's Fernando #[id number] has been reviewed and appropriate. Patient reporting to me today she has been in a pain clinic and [place] in the past on higher doses of Percocet. She is complaining of pain in the low back area. Bilateral hip and leg radicular symptoms. Upon examination she has midline back pain as well as extreme point tenderness over the bilateral sacroiliac joints. I had a long discussion with the patient regarding these areas of pain. I discussed pathology with her. Patient states her main issue is ambulation secondary to pain. Bilateral hip and leg radicular symptoms. Also, restless leg syndrome at night. Her lumbar MRI in 2018 shows multilevel degenerative disc. Multilevel disc bulge. Retrolisthesis L2 on 3 and L3 on 4. A more recent lumbar x-ray shows multilevel degenerative disc. Also, retrolisthesis L2 on 3 and L3 on 4. Patient asking for higher doses of pain medication. She is requesting something stronger. I discussed in detail with the patient regarding intrathecal pain pump therapy. Patient did not have much knowledge of this modality of pain relief. Again, I discussed in detail with her the risk versus benefits of intrathecal pain pump management. Specifically, the benefit of no oral medications and microdosing with profound relief. I answered the patient's questions. I will refill her current medication of [place] 5 mg 1 p.o. 3 times daily and gabapentin 600 mg 1 p.o. twice daily. Ropinirole 0.25 mg 1 p.o. nightly. Objective:: Patient is awake alert K[place] x3. No acute distress. Flexion-extension lumbar spine guarded secondary to pain. Deep tendon reflexes upper lower extremities normal. Motor strength upper and lower extremities normal. There is no gross sensory deficit. Gait is normal. Assessment:: Degenerative disc lumbar spine multilevels. Lumbar radiculopathy. Lumbar spondylolisthesis. Plan:: I will refill the patient's pain medication as noted above. Patient will call us if in fact she is interested in taking the neck step for intrathecal pain pump trial. Otherwise, she will return to clinic in 1 month for refills. [facility] Disclaimer: The information contained in this section may have been updated after the patient was seen, as this information can be updated by other users. Medical History History of cataract History of deviated nasal septum Legally blind Surgical History History of breast implant History of L[facility] History of right nephrectomy Social History (Updated 05/06/23 @ 11:50 by Sayra Moreno RN) Smoking Status: Current every day smoker tobacco type: cigarettes packs per day: 1 alcohol intake: never substance use type: denies use current occupational status: disabled Travel in the last 8 weeks: None household members: spouse housing: house
== END | disposition home or self-care (01) ==
PROVIDERS: Visit Provider Nurse Anesthetist, Certified Registered
DX: M51.16 Intervertebral disc disorders with radiculopathy, lumbar region (principal); M43.16 Spondylolisthesis, lumbar region
CPT/HCPCS: 99212; G0463

== ENCOUNTER 2023-07-03 16:24 | Emergency (ER) | payer MEDICARE, SELFPAY ==
[2023-07-03 16:25] VITALS: BP 139/76; PULSE 72; RESP 19; TEMP 36.6; O2SAT 98; BMI 20.3
[2023-07-03 16:48] LABS: Microscopic, Urine URINE MICROSCOPIC (MICROSCOPIC)
[2023-07-03 17:03] LABS: Appearance,Urine CLEAR (Clear); Bilirubin,Urine Negative (Negative); Blood, Urine Negative (Negative); Color,Urine YELLOW (Yellow); Glucose,Urine (UA) Negative (Negative); Ketones,Urine Negative (Negative); Leukocyte Esterase,Urine Negative (Negative); Nitrate,Urine Negative (Negative); Protein,Urine Negative (Negative); Urobilinogen,Urine 0.2 EU/dl (0.2)
--- NOTE | 2023-07-03 17:16 | EXP.UTC ---
Discharge Plan Disposition Patient Disposition: Still a Patient Prescriptions Prescriptions: No Action bupropion HCl [Wellbutrin XL] 300 mg tablet extended release 24 hr 300 mg PO DAILY buspirone 10 mg tablet 10 mg PO BID sumatriptan succinate 100 mg tablet 100 mg PO ONCE PRN (Reason: MIGRAINES) omeprazole 40 mg capsule,delayed release(DR/EC) 40 mg PO DAILY oxycodone-acetaminophen 10-325 mg tablet 1 tab PO .COMPLEX Rx Instructions: 1 tab orally 5x daily; amlodipine 10 mg tablet 10 mg PO DAILY sertraline 50 mg tablet 50 mg PO DAILY montelukast 10 mg tablet 10 mg PO QPM estradiol 2 mg tablet See Rx Instructions .ROUTE .COMPLEX Rx Instructions: TAKE 1 TABLET EVERY DAY ropinirole 0.25 mg tablet 0.25 mg PO HS hydrocodone-acetaminophen 5-325 mg tablet 1 tab PO TID Qty: 90 0RF Rx Instructions: do not fill until 07/10/23 gabapentin 600 mg tablet 600 mg PO TID Qty: 90 0RF Referrals Follow up/Referrals: Kika Perkins [Primary Care Provider] - See instructions Discharge ED Provider: Adilia Thomas [facility] HPI General Stated complaint: RT side pain Mode of Arrival: Ambulatory Source of Information: Patient Limitations: No Limitations Time Seen by Provider: 07/03/23 17:16 Description of Symptoms (Recalled from Triage Doc. by RN): Patient complaint of right lower side pain and diarrhea since yesterday morning. HEENT Symptoms (Recalled from RN notes): No Resp Symptoms (Recalled from RN notes): No Skin Symptoms (Recalled from RN notes): No MS Symptoms (Recalled from RN notes): No Functional Status (Recalled from RN notes): wnl History of Present Illness Provider Complaint: Patient states that she started having pain in her right lower abdomen yesterday States that she did have a little diarrhea last night and this morning but her pain has continued to get worse and more so in right lower quad States that pain does seem to go through into her back but she had her kidney removed on that side several years ago and has had a complete hysterectomy States that she was worried it may be her appendix Related Data Home Medications Medication Instructions Recorded Confirmed montelukast 10 mg tablet 10 mg PO QPM allergies 09/23/18 06/26/23 bupropion HCl 300 mg 24 hr tablet, 300 mg PO DAILY MOOD 05/16/22 06/26/23 extended release (Wellbutrin XL) buspirone 10 mg tablet 10 mg PO BID MOOD 05/16/22 06/26/23 amlodipine 10 mg tablet 10 mg PO DAILY BLOOD PRESSURE 12/30/22 06/26/23 omeprazole 40 mg capsule,delayed 40 mg PO DAILY GERD 12/30/22 06/26/23 release oxycodone-acetaminophen 10 mg-325 1 tab PO .COMPLEX Pain 12/30/22 06/26/23 mg tablet sertraline 50 mg tablet 50 mg PO DAILY MOOD 12/30/22 06/26/23 sumatriptan succinate 100 mg tablet 100 mg PO ONCE PRN MIGRAINES 12/30/22 06/26/23 estradiol 2 mg tablet See Rx Instructions .Route 05/06/23 06/26/23 .COMPLEX SUPPLIMENT ropinirole 0.25 mg tablet 0.25 mg PO HS Pain 06/26/23 06/26/23 Previous Rx's Medication Instructions Recorded gabapentin 600 mg tablet 600 mg PO TID Pain #90 tabs 06/10/23 hydrocodone 5 mg-acetaminophen 325 1 tab PO TID Pain #90 tabs 06/26/23 mg tablet Allergies Allergy/AdvReac Type Severity Reaction Status Date / Time ciprofloxacin Allergy Severe Difficulty Verified 02/25/23 14:29 Breathing tramadol Allergy Verified 02/25/23 14:29 Worker's Comp Is this a Worker's Comp case?: No [facility] Disclaimer: The information contained in this section may have been updated after the patient was seen, as this information can be updated by other users. Medical History History of cataract History of deviated nasal septum Legally blind Surgical History History of breast implant History of [facility] History of right nephrectomy Social History (Updated 0
[2023-07-03 17:19] VITALS: BP 143/63; PULSE 64; RESP 17; TEMP 36.6; O2SAT 96; BMI 20.3
--- NOTE | 2023-07-03 17:25 | PC.NURSE ---
pt arrived to ed from [facility]
--- NOTE | 2023-07-03 17:28 | PC.NURSE ---
DR NOE AT BEDSIDE
--- NOTE | 2023-07-03 17:31 | CT_ITS ---
PROCEDURE INFORMATION: Exam: CT Abdomen And Pelvis With Contrast Exam date and time: 07/03/2023 6:20 PM Age: 58 years old Clinical indication: Abdominal pain; Additional info: Rlq pain TECHNIQUE: Imaging protocol: Computed tomography of the abdomen and pelvis with contrast. Radiation optimization: All CT scans at this facility use at least one of these dose optimization techniques: automated exposure control; mA and/or kV adjustment per patient size (includes targeted exams where dose is matched to clinical indication); or iterative reconstruction. Contrast material: ISOVUE; Contrast volume: 75 ml; Contrast route: IV; REPORTING DATA: Count of CT and Cardiac NM exams in prior 12 months: This patient has received 0 known CTs and 0 known cardiac nuclear medicine studies in the 12 months prior to the current study. COMPARISON: [facility] CT abdomen pelvis wo con 03/25/2019 9:22 PM FINDINGS: Liver: Normal. No mass. Gallbladder and bile ducts: Gallbladder is surgically absent. Pancreas: Normal. No ductal dilation. Spleen: Normal. No splenomegaly. Adrenal glands: Normal. No mass. Kidneys and ureters: Normal. No hydronephrosis. Stomach and bowel: Unremarkable. No obstruction. No mucosal thickening. Appendix: No evidence of appendicitis. Intraperitoneal space: Unremarkable. No free air. No significant fluid collection. Vasculature: Moderate atherosclerotic calcification of the abdominal aorta and iliac arteries. No evidence of aneurysm dissection. Lymph nodes: Unremarkable. No enlarged lymph nodes. Urinary bladder: Unremarkable as visualized. Reproductive: Unremarkable as visualized. Bones/joints: Unremarkable. No acute fracture. Soft tissues: Partially visualized bilateral breast implants. 3.1 cm oval soft tissue density mass noted in the right inguinal region, immediately superficial to the right common femoral vessels. Mild surrounding fatty stranding noted. IMPRESSION: 3 cm right inguinal mass. Differential diagnosis would include lymphadenopathy versus small hematoma as most likely etiologies, depending on clinical presentation. No abnormal fluid collection.
--- NOTE | 2023-07-03 17:36 | HMH.EDGENADL ---
Discharge Plan Disposition Patient Disposition: Home, Self-Care Condition: Good Prescriptions Prescriptions: New doxycycline hyclate 100 mg tablet 100 mg PO BID 10 Days Qty: 20 0RF naproxen 500 mg tablet 500 mg PO Q12H PRN (Reason: pain) Qty: 20 0RF No Action bupropion HCl [Wellbutrin XL] 300 mg tablet extended release 24 hr 300 mg PO DAILY buspirone 10 mg tablet 10 mg PO BID sumatriptan succinate 100 mg tablet 100 mg PO ONCE PRN (Reason: MIGRAINES) omeprazole 40 mg capsule,delayed release(DR/EC) 40 mg PO DAILY oxycodone-acetaminophen 10-325 mg tablet 1 tab PO .COMPLEX Rx Instructions: 1 tab orally 5x daily; amlodipine 10 mg tablet 10 mg PO DAILY sertraline 50 mg tablet 50 mg PO DAILY montelukast 10 mg tablet 10 mg PO QPM estradiol 2 mg tablet See Rx Instructions .ROUTE .COMPLEX Rx Instructions: TAKE 1 TABLET EVERY DAY ropinirole 0.25 mg tablet 0.25 mg PO HS hydrocodone-acetaminophen 5-325 mg tablet 1 tab PO TID Qty: 90 0RF Rx Instructions: do not fill until 07/10/23 gabapentin 600 mg tablet 600 mg PO TID Qty: 90 0RF Referrals Follow up/Referrals: Kika Perkins [Primary Care Provider] - See instructions Activity Restrictions/Add. Instructions Additional Instructions/Restrictions: You were evaluated in the emergency department today. You have a very enlarged lymph node in your right lower abdomen/groin. I recommend that you follow-up very closely with your primary care provider over the next 3 days for this. They may want to refer you for further testing if this does not improve with the medications that were prescribed to you here today. Return to the emergency department for any new or worsening symptoms. shearing supervisor your prescriptions and take them as prescribed. You may also take Tylenol in addition to these as needed for pain. Clinical Impressions Clinical Impression: Inguinal lymphadenitis Instructions Patient Instructions: DI for Acute Abdominal Pain, DI for Lymphadenopathy Discharge ED Provider: Adilia Thomas General Adult HPI General Chief complaint: Abdominal Pain Stated complaint: RT side pain Time Seen by Provider: 07/03/23 17:16 Mode of Arrival: Ambulatory Source of Information: Patient Limitations: No Limitations Description of Symptoms (Recalled from ER Triage Doc. by RN): Patient complaint of right lower side pain and diarrhea since yesterday morning. History of Present Illness HPI narrative: This patient is a 58-year-old female with a history of right nephrectomy, hysterectomy, and extensive smoking history presented to the emergency department for evaluation with concern for right lower quadrant abdominal pain. She states that it started 2 days ago. She states that it acutely worsened last night and she was woken up in the middle the night with loose, watery diarrhea. She denies any fevers, chills, nausea, vomiting, hematochezia, melena, or other concerns. She also denies any dysuria, hematuria, polyuria, or abnormal discharge. Nothing seems to make it better or worse. She states that she has still been able to eat and drink. She was evaluated in [facility], who obtained a urinalysis which was negative for any acute infection, medical record review. Per the [facility] provider, they sent the patient over with concerns for possible appendicitis given right lower quadrant pain and tenderness. No other concerns noted at this time. Related Data Home Medications Medication Instructions Recorded Confirmed montelukast 10 mg tablet 10 mg PO QPM allergies 09/23/18 06/26/23 bupropion HCl 300 mg 24 hr tablet, 300 mg PO DAILY MOOD 05/16/22 06/26/23 extended release (Wellbutrin XL) buspirone 10 mg tablet 10 mg PO BID MOOD 05/16/22 06/26/23 amlodipine 10 mg tablet 10 mg PO DAILY BLOOD PRESSURE 12/30/22 06/26/23 omeprazole 40 mg capsule,delayed 40 mg PO DAILY GERD 12/30/22 06/26/23 release o
[2023-07-03 17:42] LABS: Basophils % 0.3 % (0.1-2.0); Eosinophils # 0.2 K/mm3 (0.0-0.4); Eosinophils % 2.2 % (0.1-12.0); Hematocrit 45.2 % (37.0-47.0); Hemoglobin 14.5 g/dL (12.2-16.2); Lymphocytes # 3.2 K/mm3 (0.7-4.5); Lymphocytes % 32.4 % (10-50); Mean Corpuscular HGB Conc 32.2 g/dL (31.8-35.4); Mean Corpuscular Hemoglobin 28.8 pg (27.0-31.2); Mean Corpuscular Volume 89.6 fl (81-99); Mean Platelet Volume 10.1 fl (7.4-10.4); Monocytes # 0.6 K/mm3 (0.1-1.0); Monocytes % 5.8 % (1.7-9.3); Neutrophils # 5.9 K/mm3 (1.8-7.8); Neutrophils % 59.3 % (37.0-80.0); Platelet Count 222 K/mm3 (142-424); Red Blood Count 5.04 M/mm3 (4.20-5.40); Red Cell Distribution Width 12.1 % (11.5-17.5); White Blood Count 9.9 K/mm3 (4.8-10.8)
[2023-07-03 17:57] LABS: Chloride 105 mmol/L (98-107); Sodium 140 mmol/L (136-145)
[2023-07-03 17:59] LABS: Alanine Aminotransferase 14 U/L (12-78); Aspartate Amino Transferase 22 U/L (14-36); Blood Urea Nitrogen 14 mg/dl (7-17); Creatinine Clearance Estimated 72 mL/min (50-200); Estimated Glomerular Filt Rate 64 ml/min (>60); GFR (African American) 78 ML/MIN (>60)
[2023-07-03 18:00] VITALS: BP 120/67; PULSE 60; O2SAT 98
[2023-07-03 18:00] LABS: Albumin Level 4.3 g/dl (3.5-5.0); Albumin/Globulin Ratio 1.4 (1.1-1.8); Alkaline Phosphatase 106 U/L (38-126); Bilirubin,Total 0.4 mg/dl (0.2-1.3); Calcium 9.8 mg/dl (8.4-10.2); Carbon Dioxide 28 mmol/L (22.0-30.0); Globulin 3.1 g/dL (1.3-3.2); Glucose 86 mg/dl (74-100); Total Protein,Serum 7.4 g/dl (6.3-8.2)
--- NOTE | 2023-07-03 18:14 | PC.NURSE ---
pt ambulated to restroom with no problems
--- NOTE | 2023-07-03 18:17 | PC.NURSE ---
pt back to room rehooking pt back to data machine
--- NOTE | 2023-07-03 18:19 | PC.NURSE ---
pt going to ct via wheelchair
--- NOTE | 2023-07-03 18:28 | PC.NURSE ---
pt back to room from ct
[2023-07-03 18:30] VITALS: BP 128/61; PULSE 61; O2SAT 99
[2023-07-03 19:31] VITALS: BP 111/69; PULSE 59; O2SAT 100
[2023-07-03 20:23] VITALS: BP 111/69; PULSE 80; RESP 18; TEMP 36.6; O2SAT 98
[2023-07-06 20:34] LABS: Neisseria gonorrhoeae, NAA Negative (Negative)
== END 2023-07-03 20:25 | disposition home or self-care (01) ==
LOC: UTC 16:38 → ER 17:19
PROVIDERS: Nurse Practitioner; Emergency Provider Emergency Medicine; PCP Nurse Practitioner Family
DX: R10.31 Right lower quadrant pain (principal); L04.1 Acute lymphadenitis of trunk; R19.7 Diarrhea, unspecified; F17.210 Nicotine dependence, cigarettes, uncomplicated
CPT/HCPCS: 74177; 80053; 81001; 85025; 87491; 87591; 96361; 96374; 96375; 99285; J0131; J2405; Q9967

== ENCOUNTER 2023-07-13 14:13 | Emergency (ER) | payer MEDICARE, SELFPAY ==
[2023-07-13 14:33] VITALS: BP 126/80; PULSE 74; RESP 18; TEMP 36.9; O2SAT 95; BMI 20.3
[2023-07-13 15:08] LABS: Microscopic, Urine URINE MICROSCOPIC (MICROSCOPIC)
[2023-07-13 15:12] LABS: Appearance,Urine CLEAR (Clear); Bilirubin,Urine Negative (Negative); Blood, Urine Negative (Negative); Color,Urine YELLOW (Yellow); Glucose,Urine (UA) Negative (Negative); Ketones,Urine Negative (Negative); Leukocyte Esterase,Urine Negative (Negative); Nitrate,Urine Negative (Negative); Protein,Urine Negative (Negative); Urobilinogen,Urine 0.2 EU/dl (0.2)
[2023-07-13 15:28] LABS: Bacteria,Urine 1+ /lpf
--- NOTE | 2023-07-13 15:41 | HMH.EDGENADL ---
Discharge Plan Disposition Patient Disposition: Home, Self-Care Chief Complaint: Abdominal Pain Prescriptions Prescriptions: No Action bupropion HCl [Wellbutrin XL] 300 mg tablet extended release 24 hr 300 mg PO DAILY buspirone 10 mg tablet 10 mg PO BID sumatriptan succinate 100 mg tablet 100 mg PO ONCE PRN (Reason: MIGRAINES) omeprazole 40 mg capsule,delayed release(DR/EC) 40 mg PO DAILY oxycodone-acetaminophen 10-325 mg tablet 1 tab PO .COMPLEX Rx Instructions: 1 tab orally 5x daily; amlodipine 10 mg tablet 10 mg PO DAILY sertraline 50 mg tablet 50 mg PO DAILY montelukast 10 mg tablet 10 mg PO QPM estradiol 2 mg tablet See Rx Instructions .ROUTE .COMPLEX Rx Instructions: TAKE 1 TABLET EVERY DAY ropinirole 0.25 mg tablet 0.25 mg PO HS hydrocodone-acetaminophen 5-325 mg tablet 1 tab PO TID Qty: 90 0RF Rx Instructions: do not fill until 07/10/23 gabapentin 600 mg tablet 600 mg PO TID Qty: 90 0RF doxycycline hyclate 100 mg tablet 100 mg PO BID 10 Days Qty: 20 0RF naproxen 500 mg tablet 500 mg PO Q12H PRN (Reason: pain) Qty: 20 0RF Referrals Follow up/Referrals: Kika Perkins [Primary Care Provider] - See instructions Activity Restrictions/Add. Instructions Additional Instructions/Restrictions: At this time is felt you are safe to be discharged home. If new or worsening symptoms please do not hesitate to return the emergency department. Please follow-up with Dr. Whitney tomorrow morning at 9 AM. Clinical Impressions Clinical Impression: Inguinal mass Discharge ED Provider: Jamal Donohue General Adult HPI General Chief complaint: Abdominal Pain Stated complaint: lower abd pain radiating to back Time Seen by Provider: 07/13/23 15:07 Mode of Arrival: Ambulatory Source of Information: Patient Limitations: No Limitations Description of Symptoms (Recalled from ER Triage Doc. by RN): c/o lower right abdomen into back with nausea and diarrhea. States that she was here on 07/03/23 for enlarged lymph node in the right lower abdomen. States that to touch her lower abdomen it has improved but the inside pain has not improved. Unable to get into her primary care doctor until next . History of Present Illness HPI narrative: Patient is a 58-year-old female with past medical history of recently diagnosed inguinal lymphadenitis who presents for repeat evaluation of right inguinal pain. Patient states that she has had swelling and tenderness in her right inguinal region for the last 3 weeks. She completed her 10-day course of doxycycline this morning however due to persistent symptoms presents here for repeat evaluation as she was unsure if she needed to come back or not. Denies vaginal discharge, vomiting. There is associated nausea. Review of previous work-up patient presented approximately 10 days ago and was diagnosed with a 3 cm right inguinal mass of which the differential included lymphadenopathy versus a small hematoma as the likely etiologies. There is no noticed intra-abdominal fluid collection. Previous hematologic labs are nonactionable-urine not consistent with infection. Patient has no other dynamic changes in her symptoms since previous evaluation. Related Data Home Medications Medication Instructions Recorded Confirmed montelukast 10 mg tablet 10 mg PO QPM allergies 09/23/18 06/26/23 bupropion HCl 300 mg 24 hr tablet, 300 mg PO DAILY MOOD 05/16/22 06/26/23 extended release (Wellbutrin XL) buspirone 10 mg tablet 10 mg PO BID MOOD 05/16/22 06/26/23 amlodipine 10 mg tablet 10 mg PO DAILY BLOOD PRESSURE 12/30/22 06/26/23 omeprazole 40 mg capsule,delayed 40 mg PO DAILY GERD 12/30/22 06/26/23 release oxycodone-acetaminophen 10 mg-325 1 tab PO .COMPLEX Pain 12/30/22 06/26/23 mg tablet sertraline 50 mg tablet 50 mg PO DAILY MOOD 12/30/22 06/26/23 sumatriptan succinate 100 mg tablet 100 mg PO
--- NOTE | 2023-07-13 15:50 | PC.NURSE ---
Dr. Jay speaking with pt
[2023-07-13 16:01] VITALS: BP 128/76; PULSE 70; RESP 16; TEMP 36.9; O2SAT 98
== END 2023-07-13 16:03 | disposition home or self-care (01) ==
PROVIDERS: Emergency Provider Emergency Medicine; PCP Nurse Practitioner Family
DX: R19.09 Other intra-abdominal and pelvic swelling, mass and lump (principal); R10.30 Lower abdominal pain, unspecified; F17.210 Nicotine dependence, cigarettes, uncomplicated
CPT/HCPCS: 81001; 99282

== ENCOUNTER → 2023-07-24 09:35 | Outpatient (CLI) | payer MEDICARE, SELFPAY ==
--- NOTE | 2023-07-24 09:35 | CT_ITS ---
FINAL REPORT CLINICAL HISTORY: right lower quad pain COMPARISON: 07/03/2023 FINDINGS: CT OF THE ABDOMEN AND PELVIS WITH CONTRAST Axial CT images of the abdomen and pelvis were obtained after the administration of oral and iv contrast. Coronal reformatted images were also obtained and reviewed.This study was performed with techniques to keep radiation doses as low as reasonably achievable (ALARA). Individualized dose reduction techniques using automated exposure control or adjustment of mA and/or kV according to the patient's size were employed. Abdomen: There is mild atelectasis or scarring in the lung bases.. The heart is normal in size. The liver has an unremarkable appearance, without evidence of mass or biliary ductal dilatation. The patient is status postcholecystectomy. The spleen is unremarkable. No adrenal mass is present. The pancreas has an unremarkable appearance. The patient is status post right nephrectomy. The left kidney is unremarkable. The aorta is normal in caliber. There is no free fluid or adenopathy. No mass or abnormal fluid collection is seen. Pelvis: The appendix normal. The patient is status post hysterectomy. The urinary bladder is unremarkable. There is no evidence of bowel obstruction. Again seen is a 3.2 x 2.3 oval, soft tissue density in the right inguinal region. This has not significantly changed in size as compared to the prior exam. It does appear more heterogeneous and may have a cystic or necrotic center and could represent metastatic adenopathy. A suppurative node or other neoplasm is not excluded. IMPRESSION: Soft tissue density in the right inguinal region has not significantly changed in size. It is more heterogeneous and may have a cystic or necrotic center. This may represent metastatic adenopathy. Suppurative node or other neoplasm is not excluded. Status post right nephrectomy. Reviewed, Interpreted and Dictated by Aravind Montoya III, MD Transcribed by Flaquita Tovar Authenticated and [facility]
== END ==
PROVIDERS: PCP Nurse Practitioner Family; Visit Provider Surgery
DX: R19.09 Other intra-abdominal and pelvic swelling, mass and lump (principal)
CPT/HCPCS: 74177; Q9967

== ENCOUNTER → 2023-08-05 07:56 | Outpatient (CLI) | payer MEDICARE, SELFPAY ==
--- NOTE | 2023-08-05 07:58 | US_ITS ---
FINAL REPORT CLINICAL HISTORY: Right inguinal mass COMPARISON: None FINDINGS: Sonographic images of the right inguinal area were obtained. There is a 3.2 cm solid hypoechoic mass in the right inguinal region which may represent adenopathy or other mass. IMPRESSION: 3.2 cm right inguinal mass may represent adenopathy or other mass. Reviewed, Interpreted and Dictated by Aravind Montoya III, MD Transcribed by Katerine Ramos Authenticated and [facility]
--- NOTE | 2023-08-05 08:01 | US_ITS ---
FINAL REPORT CLINICAL HISTORY: RT INGUINAL MASS FNA -- Xavi SUE FINDINGS: ULTRASOUND GUIDED THYROID BIOPSY HISTORY: Right groin mass. TECHNIQUE: Informed consent was obtained from the patient. A timeout procedure was performed prior to beginning. Limited sonographic evaluation of right groin was performed to localize lesion of interest. The right groin was prepped in a routine sterile fashion and locally anesthetized with 1% lidocaine. FNA was performed with 25-gauge needle under direct sonographic visualization.4 passes were made. A single 18 Gauge Pass was also made. Samples were split between CytoLyt, RPMI, and culture container. Cytology is pending. Procedure was well tolerated. CONCLUSION: Technically successful right groin lesion fine needle aspiration. Reviewed, Interpreted and Dictated by Aravind Montoya III, MD Transcribed by Hortencia Gill PA-C Authenticated and [facility]
== END ==
PROVIDERS: PCP Nurse Practitioner Family; Visit Provider Surgery
DX: R19.09 Other intra-abdominal and pelvic swelling, mass and lump (principal)
CPT/HCPCS: 76882; 76942; 87070; 87205; 88173; 88184; 88185; 88305

== ENCOUNTER → 2023-08-28 14:04 | Outpatient (CLI) | payer MEDICARE, SELFPAY ==
[2023-08-28 14:38] LABS: Basophils # 0.1 K/mm3 (0-0.2); Basophils % 0.7 % (0.1-2.0); Eosinophils # 0.2 K/mm3 (0.0-0.4); Eosinophils % 3.5 % (0.1-12.0); Hematocrit 40.8 % (37.0-47.0); Hemoglobin 14.2 g/dL (12.2-16.2); Lymphocytes # 2.1 K/mm3 (0.7-4.5); Lymphocytes % 31.5 % (10-50); Mean Corpuscular HGB Conc 34.8 g/dL (31.8-35.4); Mean Corpuscular Hemoglobin 31.3 pg (27.0-31.2); Mean Platelet Volume 10.2 fl (7.4-10.4); Monocytes # 0.4 K/mm3 (0.1-1.0); Monocytes % 5.5 % (1.7-9.3); Neutrophils # 3.9 K/mm3 (1.8-7.8); Neutrophils % 58.8 % (37.0-80.0); Platelet Count 194 K/mm3 (142-424); Red Blood Count 4.54 M/mm3 (4.20-5.40); Red Cell Distribution Width 12.3 % (11.5-17.5); White Blood Count 6.6 K/mm3 (4.8-10.8)
[2023-08-28 15:24] LABS: Blood Urea Nitrogen 13 mg/dl (7-17); Calcium 9.3 mg/dl (8.4-10.2); Carbon Dioxide 28 mmol/L (22.0-30.0); Chloride 99 mmol/L (98-107); Estimated Glomerular Filt Rate 57 ml/min (>60); GFR (African American) 69 ML/MIN (>60); Glucose 94 mg/dl (74-100); Sodium 137 mmol/L (136-145)
== END ==
PROVIDERS: PCP Nurse Practitioner Family; Visit Provider Surgery
DX: K52.9 Noninfective gastroenteritis and colitis, unspecified (principal); R19.09 Other intra-abdominal and pelvic swelling, mass and lump
CPT/HCPCS: 36415; 80048; 85025

== ENCOUNTER 2023-08-31 06:14 | Day surgery (SDC) | payer MEDICARE, SELFPAY ==
[2023-08-27 10:20] VITALS: BMI 20.3
[2023-08-31] VITALS (25 sets, daily range): BP systolic 112–159; BP diastolic 55–98; PULSE 63–74; RESP 8–18; TEMP 36.4–36.9; O2SAT 92–99
[2023-08-31] MEDS: LACTATED RINGERS 1000ML 1,000 ML 25 ML IV ×3 (06:26→11:03)
--- NOTE | 2023-08-31 07:14 | P.PNANES_ITS ---
[facility] Disclaimer: The information contained in this section may have been updated after the patient was seen, as this information can be updated by other users. Medical History History of back pain History of cataract History of deviated nasal septum Hypertension Legally blind Migraine Mitral valve prolapse Surgical History History of breast implant History of colonoscopy History of eye surgery History of laparoscopic cholecystectomy History of LAVH History of right nephrectomy History of sinus surgery Family History Other Family history of diabetes mellitus type II Social History Smoking Status: Current every day smoker tobacco type: cigarettes packs per day: 1 alcohol intake: never substance use type: denies use current occupational status: disabled Travel in the last 8 weeks: None household members: spouse housing: house [facility] Anesthesia Checklist Patient Identification Patient Identification: Arm Band and Verbal (Name & ) Structural Data Admitted From: Home Planned Operative Procedure/s: Excision RT. Groin mass; possible Right IHR Consent for Planned Operative Procedure(s) Verified: Yes Verified Documents: Surgical Consent and History and Physical NPO Status Verified Time NPO: 20:00 Chart Verification Results Verified: CBC and BMP Additional verifications Patient : No Anesthesia Reactions: No Hx Blood Transfusions: No Blood Transfusion Reaction: No Cephalosporin Allergy: No Previous Colonoscopy: No Cardiovascular Assessment Heart Sounds: S1 & S2 Pulse Rhythm: Irregular Peripheral Edema: No Airway Assessment Mallampati Score:: Class II C-Spine Mobility Assessed: Yes (Limited extension) TMJ Mobility Assessed: Yes Dentition: Poor Dentition (Many missing. Nothing loose per pt.) Neurological Assessment Level of Consciousness: Awake, Alert, Appropriate and Follows Commands Hx Seizures: No Numbness or tingling in extremities: No Anesthesia Plan ASA Class: III Anesthesia Type: General
[2023-08-31] MEDS: CEFAZOLIN SODIUM 1 GM in 0.9 % SODIUM CHLORIDE 50 ML IV (07:29)
[2023-08-31] MEDS: LIDOCAINE 1% 20ML MDV 20 ML (07:41)
[2023-08-31] MEDS: ROPIVACAINE 0.5% 30ML VIAL 150 MG (07:41)
--- NOTE | 2023-08-31 09:11 | P.OP_ITS ---
Date of procedure: 08/31/23 Pre-op Diagnosis:: Right groin mass Post-op Diagnosis:: Right round ligament mass Procedure performed:: Excision of right groin round ligament mass Open repair of right inguinal hernia using medium Bard onlay mesh Surgeon:: Aravind Whitney MD PARK WORKER SUPERVISOR:: Tarsha Santiago Anesthesia: GETA Estimated blood loss (mL): 15 Operative findings:: She had somewhat of a firm hemorrhagic appearing masslike lesion along and involving the round ligament and the inguinal canal. Once dissection was fully performed there was weakness and defect to the floor and internal ring and therefore hernia repair was performed. Operative note:: Patient was taken the operating room. She was given preoperative intravenous antibiotic. In the operating room she is placed in a supine position. Lower abdomen and perineum were prepped and draped in the standard surgical fashion. The lesion was palpable in the inguinal region. Landmarks were identified. Skin was marked with a skin marker for possible incision for inguinal hernia repair. Limited incision was made medially near the mass within the marked incision. Dissection was carried down through subcutaneous tissues and Millie's fascia. Dissection was carried down to the external oblique muscle. The mass was palpable deep to the external bleak muscle. This was felt to be within the inguinal canal and possibly chronically incarcerated inguinal hernia. Incision was extended somewhat. Exposure was achieved. External bleak muscle was opened along the length of its fibers. Ilioinguinal nerve was identified and dissected free and preserved. Dissection was carried out of the cord structures/round ligament. There was a firm moderate somewhat hemorrhagic appearing masslike lesion involving the presumed round ligament. This could be endometriosis or other hemorrhagic type mass. Dissection was carried out. The structures were ligated proximal near the internal ring with Vicryl ties. Dissection was carried out distally towards the external ring and ligation was performed with Vicryl tie. Lesion was then removed in its entirety and sent off as specimen as inguinal canal mass. Inspection was then carried out of the inguinal canal. After dissection was performed the floor the inguinal canal appeared rather weak and the internal ring had the potential for defect and herniation. Therefore plan was made for hernia repair. Medium size Bard prefix mesh plug with onlay mesh was brought onto the field. Repair was performed only with the onlay mesh. It was sutured in place to reconstruct the floor the inguinal canal suturing it to Derek's ligament and along the shelving edge of the inguinal ligament with running 2-0 PDS. It was secured anteriorly medially to the transversalis fascia with interrupted 2-0 PDS. The 2 tails of the mesh were used to encircle the remaining muscular structures of the inguinal contents to reconstruct the internal ring. There is sutured to 1 another with several interrupted 2-0 PDS sutures. Structures and inguinal ligament were then returned to the normal anatomic position. Local anesthetic was infiltrated. External bleak muscle was closed over the tissues with running 2-0 Vicryl. Millie's fascia was closed with running 2-0 Vicryl. Skin was closed with 3-0 Vicryl strata fix. Clean dry sterile dressing was applied. Condition: stable Disposition: PACU Complications:: None immediately apparent
--- NOTE | 2023-08-31 09:13 | P.PNANES_ITS ---
[facility] Anesthesia Record Part I Anesthesia Record I Intake, IV Amount: 800 Hydration: Adequate Estimated blood loss (mL): 15 Urine output (mL): 0 Blood Pressure: 134/74 SaO2: 96 Pulse Rate: 64 Airway Patency: Patent Respiratory Rate: 15 Temperature: 97.6 F Patient is:: Drowsy and Oral/Nasal airway Stable to PACU at:: 09:11
[2023-08-31] MEDS: MORPHINE 2MG/ML SYRINGE 1 MG IV ×2 (09:34→09:40)
[2023-08-31] MEDS: PROMETHAZINE HCL 25MG/ML 1ML VIAL 6.25 MG IV (09:52)
[2023-08-31] MEDS: 0.9 % SODIUM CHLORIDE 25 ML 100 ML IV (09:52)
[2023-08-31] MEDS: HYDROMORPHONE 2MG/ML SYRINGE 0.5 MG IV (09:53)
--- NOTE | 2023-08-31 10:07 | ECG_ITS ---
APPROVED REPORT Exam: Resting ECG HR:62 bpm ECG Measurements Heart Rate 62 AXES MT 162 P 82 QRSd 91 QRS 93 QT 438 T 83 QTc 443 Conclusion SINUS RHYTHM WITH SINUS ARRHYTHMIA BORDERLINE RIGHT AXIS DEVIATION [QRS AXIS > 90] POSSIBLE ANTERIOR MYOCARDIAL INFARCTION , OF INDETERMINATE AGE [30 ms Q WAVE IN V3/V4, OR R < 0.2 mV IN V4] ABNORMAL ECG UNCONFIRMED REPORT Electronically signed by : Augustine Cano MD 09/01/2023 20:13:58
--- NOTE | 2023-08-31 10:40 | ECG_ITS ---
APPROVED REPORT Exam: Resting ECG HR:65 bpm ECG Measurements Heart Rate 65 AXES IN 169 P 76 QRSd 88 QRS 90 QT 423 T 85 QTc 435 Conclusion SINUS RHYTHM POSSIBLE ANTERIOR MYOCARDIAL INFARCTION , OF INDETERMINATE AGE [30 ms Q WAVE IN V3/V4, OR R < 0.2 mV IN V4] ABNORMAL ECG UNCONFIRMED REPORT Electronically signed by : Augustine Cano MD 09/01/2023 20:13:48
[2023-08-31 10:44] LABS: Basophils % 0.3 % (0.1-2.0); Eosinophils # 0.2 K/mm3 (0.0-0.4); Eosinophils % 1.3 % (0.1-12.0); Hematocrit 43.4 % (37.0-47.0); Hemoglobin 14.7 g/dL (12.2-16.2); Lymphocytes # 1.3 K/mm3 (0.7-4.5); Lymphocytes % 11.2 % (10-50); Mean Corpuscular HGB Conc 33.9 g/dL (31.8-35.4); Mean Corpuscular Hemoglobin 31.3 pg (27.0-31.2); Mean Corpuscular Volume 92.3 fl (81-99); Mean Platelet Volume 9.7 fl (7.4-10.4); Monocytes # 0.2 K/mm3 (0.1-1.0); Monocytes % 1.9 % (1.7-9.3); Neutrophils # 10.1 K/mm3 (1.8-7.8); Neutrophils % 85.4 % (37.0-80.0); Platelet Count 175 K/mm3 (142-424); Red Blood Count 4.71 M/mm3 (4.20-5.40); Red Cell Distribution Width 12.4 % (11.5-17.5); White Blood Count 11.8 K/mm3 (4.8-10.8)
[2023-08-31] MEDS: MAGNESIUM SULFATE IN WATER 2 GM/50 ML PIGGYBACK IV (10:45)
[2023-08-31 10:47] LABS: MANUAL DIFFERENTIAL MANUAL DIFFERENTIAL (MANUAL DIFF)
[2023-08-31 10:50] LABS: Chloride 105 mmol/L (98-107); Sodium 138 mmol/L (136-145)
[2023-08-31 10:51] LABS: Potassium 3.8 mmoL/L (3.5-5.1)
[2023-08-31 10:53] LABS: Alanine Aminotransferase 17 U/L (12-78); Alkaline Phosphatase 94 U/L (38-126); Anion Gap 7.8 mEq/L (5-15); Aspartate Amino Transferase 32 U/L (14-36); Bilirubin,Total 0.3 mg/dl (0.2-1.3); Blood Urea Nitrogen 12 mg/dl (7-17); Calcium 8.6 mg/dl (8.4-10.2); Carbon Dioxide 29 mmol/L (22.0-30.0); Creatinine Clearance Estimated 72 mL/min (50-200); Estimated Glomerular Filt Rate 64 ml/min (>60); GFR (African American) 78 ML/MIN (>60); Glucose 113 mg/dl (74-100)
[2023-08-31 10:54] LABS: Albumin Level 4.2 g/dl (3.5-5.0); Albumin/Globulin Ratio 1.6 (1.1-1.8); Globulin 2.7 g/dL (1.3-3.2); Total Protein,Serum 6.9 g/dl (6.3-8.2)
[2023-08-31] MEDS: HYDROMORPHONE 2MG/ML SYRINGE 2 MG (11:05)
[2023-08-31 11:06] LABS: Troponin I < 0.01 ng/ml (0.00-0.034)
[2023-08-31 11:23] LABS: Magnesium 1.9 mg/dl (1.6-2.3)
[2023-08-31 11:31] LABS: Eosinophils % 1 % (0-3); Lymphocytes % 11 % (10-50); Monocytes % 3 % (2-9); Neutrophils % 85 % (42-76); Platelet Estimate Normal; RBC Morphology Normal; Total Cells Counted 100
--- NOTE | 2023-08-31 11:53 | PC.NURSE ---
0935-oral airway was removed. pt tolerated well
--- NOTE | 2023-08-31 12:03 | PC.NURSE ---
notified Tarsha BOWMAN of pt irregular HR, possible new onset Afib, ordered STAT EKG
--- NOTE | 2023-08-31 12:17 | PC.NURSE ---
Resp @ BS for EKG- pt converted back to SR
--- NOTE | 2023-08-31 12:25 | PC.NURSE ---
Had called Cardiology r/t pt in PACU having Afib converting and returning to irregular HR (SVT) and Tachycardiac . Pt was awake and following commands. HR 248 pt stated had some chest pressure PACU nurses Nelda Rivera RN and Katerine Guo RN at . Pt was instructed to bear down like having a bowel movement. This intervention was repeated and her HR began to decrease. Rapid Response was called due to possible SVT
--- NOTE | 2023-08-31 12:56 | PC.NURSE ---
Rapid Response called- 1028 1030- Dr Dumont & Dr Carlson arrived 1032- Jennifer Lamas arrived HR 240 pt c/o chest pressure 1032- Dr Dumont ordered labs (CBC, CMP, Trop, Mag), STAT EKG 1034-Lab at Dr Dumont ordered Mag 2G infusion- started by Jacob NAVARRO and MELANIE Mckinley - updating family [facility] Elena RN- notifying Dr Whitney 1036-EKG ([place]) Patient stable- Dr Dumont ordered keep on tele until labs come back. Notify him if she converts back. 1107-Dr. Dumont notified about CBC and CMP results. Waiting on Trop and Mag. Dr Dumont ordered to Observe pt for 1hr 1126- Dr Dumont notified of Trop and Mag results okay for patient to be moved from PACU to postop at 1207.
--- NOTE | 2023-08-31 13:52 | PC.NURSE ---
pt remaining SR - hang new LR 1L-denies any chest pain or pressure at this time. Waiting on Lab results
--- NOTE | 2023-08-31 19:38 | P.EN_ITS ---
Rapid response note: Possible ems is a 58-year-old female with past cardiac history of hypertension who presented for elective outpatient surgical procedure today consisting of: Excision of right groin round ligament mass and Open repair of right inguinal hernia using medium Bard onlay mesh. While patient was in PACU, she proceeded to have an episode of tachyarrhythmia and a rapid response was called. Telemetry strips showed what looks like a brief run of SVT. EKG prior to event showed normal sinus rhythm. EKG after event again showed normal sinus rhythm. Patient bear down at the instruction of nursing and her event ceased. She had no loss of consciousness, chest pain, dyspnea. Upon evaluation, labs were obtained including CBC, CMP, magnesium, troponin. On evaluation, patient is alert and oriented but still groggy from anesthesia. Denies chest pain or shortness of breath. Lungs are clear, heart rate and rhythm regular, afebrile with blood pressure within normal limits. No peripheral edema. Pulses palpable in upper and lower extremities. On oxygen for comfort as she is in postanesthesia but does not wear oxygen normally. Recommended evaluation/observation for an hour. Patient had no further events and her labs returned with negative troponin and essentially normal CBC and CMP. Patient was given one 2 g dose of magnesium after her episode while awaiting lab results. Feel she is stable to discharge home as previously planned. Discussed case briefly with surgeon, do not feel that there is need to admit her overnight for observation. Would have close follow-up as scheduled with surgery. Recommend continuing home medications for blood pressure and mood. Suspect event was secondary to stress of her surgery and anesthesia. Surgery comfortable with this plan. Weaned to room air prior to discharge home. Electrolytes as follows: Sodium 138, potassium 3.8, chloride 105, BUN 12 with creatinine 0.9 (baseline for patient), glucose 113, calcium 8.6 , magnesium 1.9. Troponin less than 0.01.
--- NOTE | 2023-09-02 10:21 | EXP.ANES.II ---
[facility] Anesthesia Record Part II Anesthesia Record Part II Discharge Time: 12:17 Destination: Surgical Day Care (OP Surgery) PACU nurse assessment reviewed?: Yes Patient Condition:: Good Anesthesia Complications:: None Swallowing reflex intact?: Yes Airway Patency: Patent Cyanosis?: No Blood Pressure: 116/58 SaO2: 98 Respiratory Rate: 12 Pulse Rate: 74 Temperature: 98.2 F Mental Status: Alert & Oriented Pain level:: 5 Nausea and/or vomitting:: None Intake, IV Amount: 0 Hydration: Adequate
[2023-09-02 10:22] VITALS: BP 116/58; PULSE 74; RESP 12; TEMP 36.8; O2SAT 98
== END 2023-08-31 12:48 | disposition home or self-care (01) ==
PROVIDERS: Internal Medicine Adolescent Medicine; PCP Nurse Practitioner Family; Visit Provider Surgery
PROC: (CPT 20999; principal; 2023-08-31 07:30)
DX: K40.90 Unilateral inguinal hernia, without obstruction or gangrene, not specified as recurrent; R19.03 Right lower quadrant abdominal swelling, mass and lump; F17.210 Nicotine dependence, cigarettes, uncomplicated; I10 Essential (primary) hypertension
CPT/HCPCS: 20999; 49507; 36415; 80053; 83735; 84484; 85007; 85025; 88305; 88341; 88342; 93005; 96374; J2405; J3475

== ENCOUNTER → 2023-09-24 10:42 | Outpatient (CLI) | payer MEDICARE, SELFPAY ==
--- NOTE | 2023-09-24 10:46 | MR_ITS ---
FINAL REPORT CLINICAL HISTORY: CERVICALGIA COMPARISON: None FINDINGS: Multiplanar MR imaging of the cervical spine was performed without contrast. On the sagittal T2-weighted images, disc degeneration is seen throughout. There is no evidence of fracture. There is kyphosis centered at C5-6. The cervical spinal cord has an unremarkable appearance without evidence of mass, edema or syrinx. No significant canal stenosis is identified. The cervicomedullary junction is normal. C2-3: Small central disc protrusion. There is no significant canal stenosis or neural foraminal narrowing. C3-4: Annular disc bulge. Mild right neuroforaminal narrowing. C4-5: Annular disc bulge. There is no significant canal stenosis or neural foraminal narrowing. C5-6: Disc osteophyte complex. Left foraminal disc protrusion. Moderate left neuroforaminal narrowing. Probable left C6 nerve root impingement. C6-7: Disc osteophyte complex. Left foraminal disc protrusion. Moderate right and severe left neuroforaminal narrowing. Left C7 nerve root impingement. C7-T1: Small right paracentral disc protrusion. There is no significant canal stenosis or neural foraminal narrowing. IMPRESSION: Multilevel degenerative disc disease as described. Disc protrusions at several levels with nerve root impingement at C5-6 and C6-7. Reviewed, Interpreted and Dictated by Aravind Montoya III, MD Transcribed by Katerine Ramos Authenticated and [facility]
== END ==
LOC: RAD 10:43
PROVIDERS: PCP Nurse Practitioner Family; Visit Provider Anesthesiology
DX: M54.2 Cervicalgia (principal)
CPT/HCPCS: 72141; 76376

== ENCOUNTER 2025-08-07 14:27 | Outpatient (CLI) | payer MEDICARE, SELFPAY ==
--- NOTE | 2025-08-07 14:41 | MM_ITS ---
PROCEDURE INFORMATION: Exam: MG Bilateral Screening 3D Mammography Exam date and time: 08/07/2025 2:48 PM Age: 60 years old Clinical indication: Screening examination TECHNIQUE: Imaging protocol: Bilateral Screening tomosynthesis and 2D mammography including computer-aided detection (CAD) when performed. COMPARISON: 1. MG SCIMPBI MM Dig SC mamm implant BI CAD 02/05/2018 1:17 PM 2. MG DMSI DIG MAMM-SCREEN IMPLANT 06/26/2015 1:08 PM FINDINGS: MAMMOGRAPHY: Breast composition: There are scattered areas of fibroglandular density. Mass: None. Architectural distortion: None. Calcifications: No suspicious calcifications. Asymmetric density: None. Skin thickening: None. Axillary adenopathy: None. Implants: Post pectoral saline breast implants are present. IMPRESSION: No mammographic evidence of malignancy. Annual screening is recommended unless otherwise clinically indicated. ASSESSMENT: BI-RADS Category 1: Negative.
== END 2025-08-07 23:59 | disposition home or self-care (01) ==
LOC: RAD 14:28
PROVIDERS: PCP Nurse Practitioner Family; Visit Provider Nurse Practitioner Family
DX: Z12.31 Encounter for screening mammogram for malignant neoplasm of breast (principal); R92.323 Mammographic fibroglandular density, bilateral breasts; Z98.82 Breast implant status
CPT/HCPCS: 77063; 77067

== ENCOUNTER 2025-09-07 03:41 | Observation (INO) | payer MEDICARE, SELFPAY ==
[2025-09-07] VITALS (16 sets, daily range): BP systolic 101–142; BP diastolic 60–82; PULSE 67–91; RESP 12–23; TEMP 36.6–38; O2SAT 91–99; BMI 19.2; BMI 20.4
--- NOTE | 2025-09-07 03:50 | CT_ITS ---
PROCEDURE INFORMATION: Exam: CT Head Without Contrast Exam date and time: 09/07/2025 4:31 AM Age: 60 years old Clinical indication: Stroke-like symptoms; Dizziness/giddiness; Additional info: Poss stroke unsteady on feet, chronic vision probl TECHNIQUE: Imaging protocol: Computed tomography of the head without contrast. Radiation optimization: All CT scans at this facility use at least one of these dose optimization techniques: automated exposure control; mA and/or kV adjustment per patient size (includes targeted exams where dose is matched to clinical indication); or iterative reconstruction. Other technique: STROKE PROTOCOL was implemented. COMPARISON: MR CERVICAL SPINE WO CON 09/24/2023 10:42 AM FINDINGS: Brain: Normal. No hemorrhage. Age appropriate white matter. No mass effect. No focal mass. The sandy-white matter junction is intact. Cerebral ventricles: No ventriculomegaly. Paranasal sinuses: Visualized sinuses are unremarkable. No fluid levels. Mastoid air cells: Visualized mastoid air cells are well aerated. Bones: Unremarkable. No acute fracture. Soft tissues: Unremarkable. IMPRESSION: Unremarkable noncontrast examination of brain. There is no hemorrhage or mass. There is no large infarction seen. ASSESSMENT: ASPECTS ([place] Stroke Program Early CT Score) is 10.
--- NOTE | 2025-09-07 03:50 | CT_ITS ---
PROCEDURE INFORMATION: Exam: CTA Head With Contrast, Arteriography Exam date and time: 09/07/2025 4:33 AM Age: 60 years old Clinical indication: Stroke-like symptoms; Dizziness/giddiness; Additional info: Poss stroke unsteady on feet, chronic vision probl TECHNIQUE: Imaging protocol: Computed tomographic angiography of the head with contrast. Exam focused on the arteries. 3D rendering (Not supervised by radiologist): MIP and/or 3D reconstructed images were created by the technologist. Radiation optimization: All CT scans at this facility use at least one of these dose optimization techniques: automated exposure control; mA and/or kV adjustment per patient size (includes targeted exams where dose is matched to clinical indication); or iterative reconstruction. Contrast material: ISOVUE; Contrast volume: 80 ml; Contrast route: INTRAVENOUS (IV); COMPARISON: CT HEAD/BRAIN WO CON 09/07/2025 4:31 AM FINDINGS: ANTERIOR CIRCULATION: Right internal carotid artery: Intracranial segment is patent with no significant stenosis or occlusion. No aneurysm. Right middle cerebral artery: No occlusion or significant stenosis. No aneurysm. Right anterior cerebral artery: No occlusion or significant stenosis. No aneurysm. Left internal carotid artery: Intracranial segment is patent with no significant stenosis. No aneurysm. Left middle cerebral artery: No occlusion or significant stenosis. No aneurysm. Left anterior cerebral artery: No occlusion or significant stenosis. No aneurysm. POSTERIOR CIRCULATION: Right vertebral artery: No occlusion or significant stenosis. No aneurysm. Left vertebral artery: No occlusion or significant stenosis. No aneurysm. Basilar artery: No occlusion or significant stenosis. No aneurysm. Right posterior cerebral artery: No occlusion or significant stenosis. No aneurysm. Left posterior cerebral artery: No occlusion or significant stenosis. No aneurysm. Veins: There is no venous thrombosis. Brain: Normal. No hemorrhage. Unremarkable white matter. No mass effect. Cerebral ventricles: Normal. No ventriculomegaly. Bones/joints: Unremarkable. No acute fracture. Soft tissues: Unremarkable. IMPRESSION: No evidence for a embolism, significant stenosis, dissection, aneurysm, or venous thrombosis.
--- NOTE | 2025-09-07 03:50 | CT_ITS ---
PROCEDURE INFORMATION: Exam: CTA Neck With Contrast Exam date and time: 09/07/2025 4:33 AM Age: 60 years old Clinical indication: Stroke-like symptoms; Dizziness/giddiness; Additional info: Poss stroke unsteady on feet, chronic vision probl TECHNIQUE: Imaging protocol: Computed tomographic angiography of the neck with contrast. Exam focused on the cervical segments of the vasculature. 3D rendering (Not supervised by radiologist): MIP and/or 3D reconstructed images were created by the technologist. Radiation optimization: All CT scans at this facility use at least one of these dose optimization techniques: automated exposure control; mA and/or kV adjustment per patient size (includes targeted exams where dose is matched to clinical indication); or iterative reconstruction. Contrast material: ISOVUE; Contrast volume: 80 ml; Contrast route: INTRAVENOUS (IV); COMPARISON: MR CERVICAL SPINE WO CON 09/24/2023 10:42 AM FINDINGS: Right common carotid artery: No stenosis. No dissection or occlusion. Right internal carotid artery: No significant stenosis. No dissection or occlusion. Right external carotid artery: No occlusion or stenosis of the origin. Left common carotid artery: No stenosis. No dissection or occlusion. Left internal carotid artery: No significant stenosis. No dissection or occlusion. Left external carotid artery: No occlusion or stenosis of the origin. Right vertebral artery: No stenosis. No dissection or occlusion. Left vertebral artery: No stenosis. No dissection or occlusion. Soft tissues: Normal. No significant soft tissue swelling. Bones/joints: No acute fracture. IMPRESSION: Unremarkable examination with no significant stenosis, dissection, or occlusion. REFERENCES: NASCET CRITERIA. The degree of stenosis in the cervical segment of the internal carotid artery is based on NASCET criteria. Normal is no stenosis. Mild is less than 50% stenosis. Moderate is 50-69% stenosis. Severe is 70% to 99% stenosis. Total occlusion is no detectable patent lumen.
--- OUTSIDE RECORDS SUMMARY | 2025-09-07 03:55 | XMS_ITS | Encounter Summary ---
Author Organization Healthcare Address [address] [id number] Care Team Providers Care Edi Programmer Analyst Name Role Phone Kika Perkins APRN Primary Care Provider [phone] Reason for Visit * Reason Comments Med Refill Encounter Details Date Type Department Care Team (Late st Contact Info) Description 07/27/2025 Refill [facility] [address] [place] [address] Kika Perkins APRN [address] [place] [address] Non-seasonal allergic rhinitis, unspecified trigger Social History Tobacco Use Types Packs/Day Years Used Date Smoking Tobacco: Light Smoker Cigarettes 0.5 40 Passive Smoke Exposure: Current Smokeless Tobacco: Never Alcohol Use Standard Drinks/Week Comments Never 0 (1 standard drink = 0.6 oz pur e alcohol) Humiliation, Afraid, Rape, and Kick questionnair e Answer Date Recorded Within the last year, have y ou been afraid of your partner or ex-partner? No 02/23/2025 Within the last year, have y ou been humiliated or emotionally abused in other ways by your partner or ex-partner? No Within the last year, have y ou been kicked, hit, slapped, or otherwise physically hurt by your partner or ex-partner? No 02/23/2025 Within the last year, have y ou been raped or forced to have any kind of sexual activity by your partner or ex-partner? No 02/23/2025 PHQ-2 Answer Date Recorded Patient Health Questionnaire-2 Score 0 02/23/2025 Hunger Vital Sign Answer Date Recorded Within the past 12 months, y ou worried that your food would run out before you got the money to buy more. Never true 02/24/20 25 Within the past 12 months, t he food you bought just didn't last and you didn't have money to get more. Never true 02/23/2025 PRAPARE - Transportation Answer Date Re corded In the past 12 months, has l ack of transportation kept you from medical appointments or from getting medications? No 05/2025 In the past 12 months, has l ack of transportation kept you from meetings, work, or from getting things needed for daily living? No 02/23/2025 Housing Stability Vital Sign Answer Jorden e Recorded In the last 12 months, was t here a time when you were not able to pay the mortgage or rent on time? No 04/05/2024 In the last 12 months, how many places have you lived? 1 04/05/2024 In the last 12 months, was t here a time when you did not have a steady place to sleep or slept in a penitentiary (including now)? No 04/05/2024 PHQ-9 Answer Date Recorded Patient Health Questionnaire-9 Score 6 02/23/2025 Housing Stability Vital Sign Answer Jorden e Recorded In the last 12 months, was t here a time when you were not able to pay the mortgage or rent on time? No 02/23/2025 In the past 12 months, how m any times have you moved where you were living? 0 02/23/2025 At any time in the [facility], were you homeless or living in a penitentiary (including now)? No 02/23/2025 Safety and Environment Answer Date Cecil rded Do you worry that your child may have been physically abused? Patient declined 04/05/2024 Do you worry that your child may have been sexually abused? Patient declined 04/05/2024 Are there any guns kept in o r around your home or where your child spends time? Patient declined 04/05/2024 Guns Unloaded or Locked Away Not on file Utilities Answer Date Recorded In the past 12 months has th e electric, gas, oil, or water company threatened to shut off services in your home? No 02/23/2025 PHQ-2A Answer Date Recorded Patient Health Questionnaire-2 Score 0 07/16/2023 Comments Unknown Sex and Gender Information Value Date Recorded Sex Assigned at Not on file Legal Sex Female 6:40 PM EDT Gender Identity Not on file Sexual Orientation Not on file documented as of this encounter Miscellaneous Notes * Telephone Encounter - Allyson Lopez PharmD - 07/31/2025 9:23 AM EDT 1 medication(s) has been approved per protocol. documented in this encounter Plan of Treatment Not on file documented as of this encounter Visit Diagnoses Diagnosis Non-seasonal allergic rhinitis, unspecified trigger documented in this encounter Additional Health Concerns Assessment Noted Time PHQ-9 Depression Total Score: 6 02/24/20 25 2:42 PM EDT A fall risk assessment has been complete d for the patient 03/24/2023 8:47 AM EDT A Body Mass Index follow-up plan has been documented for the patient 02/23/2025 3:35 PM EDT documented as of this encounter Care Teams Edi Programmer Analyst Relationship Specialty Start Date End Date Kika Perkins APRN [address] [place] [address] PCP - General 03/01/21 documented as of this encounter
--- OUTSIDE RECORDS SUMMARY | 2025-09-07 03:55 | XMS_ITS | Encounter Summary ---
Author Organization Healthcare Address [address] [place] [address] Care Team Providers Care Analytical Clerk Name Role Phone Kika Perkins APRN Primary Care Provider [phone] Encounter Details Date Type Department Care Team (Late st Contact Info) Description 08/07/2025 Orders Only [facility] [address] [place] [address] Kika Perkins APRN [address] [place] [address] Screening mammogram for breast cancer (Primary Dx) Social History Tobacco Use Types Packs/Day Years [...] place to sleep or slept in a senior living (including now)? No 04/05/2024 PHQ-9 Answer Date [...] any time in the past 12 m [facility], were you homeless or living in a senior living (including now)? No 02/23/2025 Safety and Environment [...] on file documented as of this encounter Plan of Treatment Scheduled Orders Name Type Priority Associated Diagnoses Orde r Schedule Mammography Breast Screening Tomosynthesis Bilateral Imaging Routine Screening mammogram for breast cancer Expected: 08/07/2025 (Approximate), Expires: 02/08/2027 documented as of this encounter Visit Diagnoses Diagnosis Screening mammogram for breast cancer- Primary documented in this encounter Additional Health Concerns Assessment Noted Time PHQ-9 Depression Total Score: 6 02/24/20 25 2:42 PM EDT A fall risk assessment has been complete d for the patient 03/24/2023 8:47 AM EDT A Body Mass Index follow-up plan has been documented for the patient 02/23/2025 3:35 PM EDT documented as of this encounter Care Teams Analytical Clerk Relationship Specialty Start Date End Date Kika Perkins APRN [address] [place] [address] PCP - General 03/01/21 documented as of this encounter
--- OUTSIDE RECORDS SUMMARY | 2025-09-07 03:55 | XMS_ITS | Data Portability ---
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 [place] [address], [id number], 08/11/2025 16:56:25 08/03/20 25 08/11/2025 OXYCO DONE DEFIN ITIVE PANEL -LC/M S oxycodone >5000 NG/mL <75.0 abnormal Not Available Napoleon Platt MD [facility] (In House Lab) [address] [place] [address], [id number], 08/11/2025 16:56:24 08/03/20 25 08/11/2025 OXYCO DONE DEFIN ITIVE PANEL -LC/M S noroxycodone >5000 NG/mL <75.0 abnormal Not Available Jairo Platt MD [facility] (In House Lab) [address] [place] [address] [place], [address], 08/11/2025 16:56:24 08/03/20 25 08/11/2025 OXYCO DONE DEFIN ITIVE PANEL -LC/M S oxymorphone 725.6 NG/mL <75.0 abnormal Not Available Shane Platt MD [facility] (In House Lab) [address] [place] [address], [id number], 08/11/2025 16:56:24 08/03/20 25 08/11/2025 GABAP ENTIN DEFIN ITIVE PANEL -LC/M S gabapentin >39311 NG/mL <5000. 0 abnormal Not Available Napoleon Platt MD [facility] (In House Lab) [address] [place] [address], [id number], 08/11/2025 16:56:23 08/03/20 25 08/03/2025 D-PRE SUMPT ILYA URINE DRUG REPOR T amphetamine NEGATI VE NG/mL <1000. 0 Not Available Napoleon Platt MD [facility] (In House Lab) [address] [place] [address], [id number], 08/11/2025 16:56:23 08/03/20 25 08/03/2025 D-PRE SUMPT ILYA URINE DRUG REPOR T benzodiazepi ne 100.0 NG/mL <200.0 Curre nt metho d may not detec t low level s of Klono pin Not Available Napoleon Platt MD [facility] (In House Lab) [address] [place] [address], [id number], 08/11/2025 16:56:23 08/03/20 25 08/03/2025 D-PRE SUMPT ILYA URINE DRUG REPOR T buprenorphin e NEGATI VE NG/mL <10.0 Not Available Napoleon Platt MD [facility] (In House Lab) [address] [place] [address], [id number], 08/11/2025 16:56:23 08/03/20 25 08/03/2025 D-PRE SUMPT ILYA URINE DRUG REPOR T cannabinoid NEGATI VE NG/mL <50.0 Not Available Napoleon Platt MD [facility] (In House Lab) [address] [place] [address], [id number], 08/11/2025 16:56:23 08/03/2008/03/2025 D-PRE SUMPT ILYA URINE DRUG REPOR T cocaine NEGATI VE NG/mL <300.0 Not Available Napoleon Platt MD [facility] (In House Lab) [address] [place] [address], [id number], 08/11/2025 16:56:23 08/03/2008/03/2025 D-PRE SUMPT ILYA URINE DRUG REPOR T ethanol NEGATI VE mg/dL <50.0 Not Available Napoleon Platt MD [facility] (In House Lab) [address] [place] [address], [id number], 08/11/2025 16:56:23 08/03/20 25 08/03/2025 D-PRE SUMPT ILYA URINE DRUG REPOR T methadone 20.0 NG/mL <300.0 Not Available Napoleon Platt MD [facility] (In House Lab) [address] [place] [address], [id number], 08/11/2025 16:56:23 08/03/2008/03/2025 D-PRE SUMPT ILYA URINE DRUG REPOR T opiates 179.0 NG/mL <300.0 Opiat es inclu kory Codei ne,Mo rphin e, Salters morph one,H ydroc odone Not Available Napoleon Platt MD [facility] (In House Lab) [address] [place] [address], [id number], 08/11/2025 16:56:23 08/03/20 25 08/03/2025 D-PRE SUMPT ILYA URINE DRUG REPOR T oxycodone >793 NG/mL <300.0 high Not Available Napoleon Platt MD [facility] (In House Lab) [address] [place] [address], [id number], 08/11/2025 16:56:23 08/03/20 25 08/03/2025 D-PRE SUMPT ILYA URINE DRUG REPOR T urine creatinine (validity test) 79.5 mg/dL 20.0 - 300.0 Not Available Napoleon Platt MD [facility] (In House Lab) [address] [place], [address], 08/11/2025 16:56:23 Result Notes None recorded. Problems Name Problem SNOMED Code Status Onset Date Resolution Date Notes Provider Name and Address Organization Details Recorded Time Low back pain 041257895 Active 023 DAVID WASHINGTON MD [address] [place], [address] , [facility] 08/04/2023 10:14:24 Problem Notes None recorded. Medical Equipment None Reported. Allergies Allergen ID Allergen Name Allergen Category Reaction Reaction Severity Criticality Documentation Date Start Date Code Code System Note Provider Name and Address Organization Details Recorded Time 61326 ciproflox acin medicatio n Not available Not available Not available 08/04/2023 2551 RxNorm [facility] 3 10:02:23 53604 tramadol medicatio n Not available Not available Not available 08/04/2023 69845 RxNorm [facility] eD [facility] 3 10:02:30 Medications Name Sig Start Date Stop Date Status Note LastModified by Organization Details LastModified Time amoxicillin 500 mg capsule TAKE 1 CAPSULE BY MOUTH EVERY 8 HOURS UNTIL GONE active Not Available Not Available No t Available gabapentin 600 mg tablet TAKE ONE TABLET BY MOUTH THREE TIMES DAILY MAY CAUSE DROWSINES S active Not Available Not Available No t Available atorvastati n 20 mg tablet TAKE ONE TABLET BY MOUTH ONCE A DAY active Not Available Not Available No t Available sumatriptan 100 mg tablet active Not Available Not Available Not Available hydrocodone 5 mg-acetamin ophen 325 mg tablet TAKE 1 TO 2 TABLET(S) BY MOUTH EVERY 6 HOURS NEEDED FOR PAIN MAY CAUSE DROWSINES S 01/27 completed Not Available Not Available Not Available rizatriptan 10 mg tablet TAKE 1 TABLET BY MOUTH 1 time NEEDED FOR migraine. MAY REPEAT in 2 hours if unresolve d. DO not exceed 30 MG in 24 hours active Not Available Not Available No t Available meclizine 12.5 mg tablet TAKE ONE TABLET BY MOUTH 3 TIMES A DAY NEEDED FOR DIZZINESS active Not Available Not Available No t Available chlorthalid one 25 mg tablet active Not Available Not Available Not Available amlodipine 5 mg tablet TAKE ONE TABLET BY MOUTH ONCE A DAY active Not Available Not Available No t Available omeprazole 40 mg capsule,del ayed release TAKE ONE CAPSULE BY MOUTH 2 TIMES A DAY active Not Available Not Available No t Available potassium chloride ER 20 mEq tablet,exte nded release(par t/cryst) active Not Available Not Available Not Available oxycodone-a cetaminophe n 10 mg-325 mg tablet TAKE ONE TABLET BY MOUTH EVERY 6 HOURS active Not Available Not Available No t Available gabapentin 800 mg tablet 01/27 completed Not Available Not Available Not Available ropinirole 0.25 mg tablet TAKE 1 TABLET BY MOUTH AT BEDTIME NIGHTLY FOR PAIN active Not Available Not Available No t Available amlodipine 10 mg tablet active Not Available Not Available Not Available erythromyci n 5 mg/gram (0.5 %) eye ointment active Not Available Not Available Not Available buspirone 10 mg tablet active Not Available Not Available Not Available promethazin e 25 mg tablet active Not Available Not Available Not Available estradiol 2 mg tablet active Not Available Not Available No t Available montelukast 10 mg tablet TAKE ONE TABLET BY MOUTH AT BEDTIME active Not Available Not Available No t Available oxycodone 30 mg tablet 05/30 completed Not Available Not Available Not Available oxycodone-a cetaminophe n 7.5 mg-325 mg tablet Take 1 tablet every 6 hours by oral route for 30 days. 04/05 completed Not Available Not Available Not Available fluticasone propionate 50 mcg/actuati on nasal spray,suspe nsion active Not Available Not Available Not Available sertraline 50 mg tablet TAKE TWO TABLETS BY MOUTH ONCE A DAY active Not Available Not Available No t Available doxycycline hyclate 100 mg tablet TAKE 1 TABLET BY MOUTH TWICE DAILY FOR 10 DAYS active Not Available Not Available No t Available naproxen 500 mg tablet TAKE 1 TABLET BY MOUTH EVERY 12 HOURS NEEDED FOR PAIN active Not Available Not Available No t Available bupropion HCl XL 300 mg 24 hr tablet, extended release TAKE ONE TABLET BY MOUTH EVERY MORNING active Not Available Not Available No t Available aripiprazol e 2 mg tablet active Not Available Not Available Not Available hydrochloro thiazide 12.5 mg tablet active Not Available Not Available Not Available estradiol 10 mcg vaginal tablet active Not Available Not Available Not Available Vitals Date Recorded Body height Body mass index (BMI) Body weight Body temperature Heart rate Respiratory rate Systolic And Diastolic Provider Name and Address Organization Details Last Updated DateTime 5 182.88 cm 20.3 kg/m2 25941.8 6 g 97.7 [degF] 69 /min 16 /min 120/76 mm[Hg] [facility] 5 13:48:13 Date Recorded Body height Body mass index (BMI) Body weight Respiratory rate Heart rate Body temperature Systolic And Diastolic Provider Name and Address Organization Details Last Updated DateTime 5 182.88 cm 20.3 kg/m2 55930.8 6 g 16 /min 61 /min 95.3 [degF] 142/75 mm[Hg] [facility]u [facility] 5 13:36:30 Date Recorded Body height Body mass index (BMI) Body weight Body temperature Heart rate Respiratory rate Systolic And Diastolic Provider Name and Address Organization Details Last Updated DateTime 5 182.88 cm 20.3 kg/m2 84369.8 6 g 97.6 [degF] 76 /min 16 /min 134/79 mm[Hg] [facility] 5 13:43:19 Date Recorded Body height Body mass index (BMI) Body weight Body temperature Heart rate Respiratory rate Systolic And Diastolic Provider Name and Address Organization Details Last Updated DateTime 5 182.88 cm 20.3 kg/m2 98813.8 6 g 97.6 [degF] 72 /min 16 /min 143/75 mm[Hg] [facility] 5 13:42:34 Date Recorded Body mass index (BMI) Body weight Heart rate Systolic And Diastolic Provider Name and Address Organization Details Last Updated DateTime 08/03/2025 20.3 kg/m2 30212.86 g 65 /min 138/73 mm[Hg] Chinedu Grubbslalito [facility] 08/03/2025 11:25:01 Date Recorded Body height Body temperature Respiratory rate Pain severity - 0-10 verbal numeric rating [Score] - Reported Provider Name and Address Organization Details Last Updated DateTime 08/03/2025 182.88 cm 98.6 [degF] 16 /min 6 Nany Nichols [facility] 11:22:41 Social History Question Answer Notes LastModified by Organizat ion Details LastModified Time Tobacco Smoking Status Current Every Day Smoker [facility] 08/04/2023 10:04:58 What Is Your Level Of Caffeine Consumption? Moderate 5-6 Pd Information not available 08/04/2023 How Much Tobacco Do You Smoke? 0.5 PPD Information not available 08/04/2023 Sex: Unknown Functional Status Question Answer Note LastModified by Organization D etails LastModified Time What is your level of alcohol consumption? None Information not available 08/04/2023 Mental Status None recorded. Family History Nothing Reported. Medical History Condition Response Depression Y Anxiety Disorder Y Acid Reflux (GERD) Y Headaches Y Fibromyalgia Y Hypertension Y Kidney Disease Y Gynecological HistoryNo gynecological history recorded. Obstetrics History GPAL:G 0 P 0 0 0 0 Immunizations Vaccine Type Date Status Note Provider Nam e and Address Organization Details Recorded Time SARS-COV-2 (COVID-19) vaccine, UNSPECIFIED 07/22/2023 completed [facility] 08/04/2023 10:05:45 Past Encounters Encounter ID Performer Location Encounter Start Date Encounter Closed Date Diagnosis/Indication Diagnosis SNOMED-CT Code Diagnosis ICD10 Code Diagnosis IMO Codes Diagnosis Note DAVID WASHINGTON MD [facility][note 3][address] [place] [phone] 4 08/04/2023 09:52:44 08/10/2023 14:47:27 Long-term current use of opiate analgesic drug [id number] 14767 Z79.891 Diagnostic /Lab: Order Presumptiv e UDT (necessary for rapid results) with Definitive confirmati on for chronic pain patient, to define treatment and reinforce therapeuti c compliance ; the following apply:[Pre sumptive UDT includes: (Amp, Debo, Jr, Bup, THC, CLARENCE, ETOH, Meth, Opi, Oxy )]*-Patien t is receiving controlled medication s.*-Presum ptive UDT to identify presence of illicit/no n-prescrib ed substance( s) - Confirm positive for ongoing safe prescribin g of controlled substances .*-Presump tive UDT to identify presence of licit/pres cribed substance( s)-Confirm unexpected results, identify specific drug(s) in large class and ensure appropriat e use of prescribed medication (s). _*-Definit ilya UDT inadequate ly detected by Presumptiv e UDT (gabapenti n, pregabalin , tramadol, fentanyl, tapentadol and carisoprod ol). HP2 (CBC/CMP/G GT) C BC - ordered to monitor the effects of prescribed medication CMP/GGT - ordered to obtain baseline levels for renal and hepatic functions and electrolyt e statusdraw n to monitor the longterm effects of current medication . Neck pain 78252655 M54.2 Low back pain 867910262 M54.50 [id number] Sandy Lloyd APRN [address] [place], [place] [phone] 10/01/2023 14:16:16 10/01/2023 15:53:17 Neck pain 26991304 M54.2 Low back pain 887651618 M54.50 [id number] DAVID WASHINGTON MD [address] [place] [phone] 12/03/2023 14:11:14 12/03/2023 14:55:43 Low back pain 065710377 M54.50 [id number] Sandy Lloyd APRN [address] [address] 01/28/2024 14:54:32 01/28/2024 15:27:06 Long-term current use of opiate analgesic drug [id number] 12314 Z79.891 Diagnostic /Lab: Order Presumptiv e UDT (necessary for rapid results) with Definitive confirmati on for chronic pain patient, to define treatment and reinforce therapeuti c compliance ; the following apply: [Presumpti ve UDT includes: (Amp, Debo, Jr, Bup, THC, CLARENCE, ETOH, Meth, Opi, Oxy )] *-Patient is receiving controlled medication s. *-Presumpt ilya UDT to identify presence of illicit/no n-prescrib ed substance( s) - Confirm positive for ongoing safe prescribin g of controlled substances . *-Presumpt ilya UDT to identify presence of licit/pres cribed substance( s)-Confirm unexpected results, identify specific drug(s) in large class and ensure appropriat e use of prescribed medication (s). *-Definiti ve UDT inadequate ly detected by Presumptiv e UDT (gabapenti n, pregabalin , tramadol, fentanyl, tapentadol and carisoprod ol). HP1 (CBC/Renal /Hepatic/G GT) CBC - ordered to monitor the effects of prescribed medication s. Renal/Hepa tic/GGT - ordered to monitor toxicity of renal hepatic function due to medication . Neck pain 46754535 M54.2 Low back pain 627785383 M54.50 [id number] DAVID WASHINGTON MD [facility][note 3][address] [phone] 03/30/2024 13:57:56 03/31/2024 11:58:16 Long-term current use of opiate analgesic drug [id number] 77119 Z79.891 Diagnostic /Lab: Order Presumptiv e UDT (necessary for rapid results) with Definitive confirmati on for chronic pain patient, to define treatment and reinforce therapeuti c compliance ; the following apply:[Pre sumptive UDT includes: (Amp, Debo, Jr, Bup, THC, CLARENCE, ETOH, Meth, Opi, Oxy )]*-Patien t is receiving controlled medication s.*-Presum ptive UDT to identify presence of illicit/no n-prescrib ed substance( s) - Confirm positive for ongoing safe prescribin g of controlled substances .*-Presump tive UDT to identify presence of licit/pres cribed substance( s)-Confirm unexpected results, identify specific drug(s) in large class and ensure appropriat e use of prescribed medication (s). _*-Definit ilya UDT inadequate ly detected by Presumptiv e UDT (gabapenti n, pregabalin , tramadol, fentanyl, tapentadol and carisoprod ol). HP2 (CBC/CMP/G GT) C BC - ordered to monitor the effects of prescribed medication CMP/GGT - ordered to obtain baseline levels for renal and hepatic functions and electrolyt e statusdraw n to monitor the longterm effects of current medication . Low back pain 876035501 M54.50 [id number] LINETTE Harris [address] [place], [place] [id number] 4 05/30/2024 09:13:13 05/31/2024 08:04:18 Low back pain 697062253 M54.50 [id number] Sandy Lloyd APRN [address] [place] [address] 4 08/16/2024 09:57:21 08/16/2024 10:29:58 Long-term current use of opiate analgesic drug [id number] 34488 Z79.891 Diagnostic /Lab: Order Presumptiv e UDT (necessary for rapid results) with Definitive confirmati on for chronic pain patient, to define treatment and reinforce therapeuti c compliance ; the following apply: [Presumpti ve UDT includes: (Amp, Debo, Jr, Bup, THC, CLARENCE, ETOH, Meth, Opi, Oxy )] *-Patient is receiving controlled medication s. *-Presumpt ilya UDT to identify presence of illicit/no n-prescrib ed substance( s) - Confirm positive for ongoing safe prescribin g of controlled substances . *-Presumpt ilya UDT to identify presence of licit/pres cribed substance( s)-Confirm unexpected results, identify specific drug(s) in large class and ensure appropriat e use of prescribed medication (s). *-Definiti ve UDT inadequate ly detected by Presumptiv e UDT (gabapenti n, pregabalin , tramadol, fentanyl, tapentadol and carisoprod ol). HP1 (CBC/Renal /Hepatic/G GT) CBC - ordered to monitor the effects of prescribed medication s. Renal/Hepa tic/GGT - ordered to monitor toxicity of renal hepatic function due to medication . Neck pain 58607422 M54.2 Low back pain 930227027 M54.50 [id number] DAVID WASHINGTON MD [facility][note 3][address] [place] [address] 10/11/2024 08:14:41 10/11/2024 08:38:25 Low back pain 065552646 M54.50 Long-term current use of opiate analgesic drug [id number] 78911 Z79.891 [id number] Diagnostic /Lab: Order Presumptiv e UDT (necessary for rapid results) with Definitive confirmati on for chronic pain patient, to define treatment and reinforce therapeuti c compliance ; the following apply:[Pre sumptive UDT includes: (Amp, Debo, Jr, Bup, THC, CLARENCE, ETOH, Meth, Opi, Oxy )]*-Patien t is receiving controlled medication s.*-Presum ptive UDT to identify presence of illicit/no n-prescrib ed substance( s) - Confirm positive for ongoing safe prescribin g of controlled substances .*-Presump tive UDT to identify presence of licit/pres cribed substance( s)-Confirm unexpected results, identify specific drug(s) in large class and ensure appropriat e use of prescribed medication (s). _*-Definit ilya UDT inadequate ly detected by Presumptiv e UDT (gabapenti n, pregabalin , tramadol, fentanyl, tapentadol and carisoprod ol). HP2 (CBC/CMP/G GT) C BC - ordered to monitor the effects of prescribed medication CMP/GGT - ordered to obtain baseline levels for renal and hepatic functions and electrolyt e statusdraw n to monitor the terminal clerk effects of current medication .Diagnosti c/Lab: Order Presumptiv e UDT (necessary for rapid results) with Definitive confirmati on for chronic pain patient, to define treatment and reinforce therapeuti c compliance ; the following apply: [Presumpti ve UDT includes: (Amp, Debo, Jr, Bup, THC, CLARENCE, ETOH, Meth, Opi, Oxy )] *-Patient is receiving controlled medication s. *-Presumpt ilya UDT to identify presence of illicit/no n-prescrib ed substance( s) - Confirm positive for ongoing safe prescribin g of controlled substances . *-Presumpt ilya UDT to identify presence of licit/pres cribed substance( s)-Confirm unexpected results, identify specific drug(s) in large class and ensure appropriat e use of prescribed medication (s). *-Definiti ve UDT inadequate ly detected by Presumptiv e UDT (gabapenti n, pregabalin , tramadol, fentanyl, tapentadol and carisoprod ol). [id number] DAVID WASHINGTON MD [address] [place] [phone] 12/06/2024 13:38:31 12/08/2024 10:52:34 Long-term current use of opiate analgesic drug [id number] 50917 Z79.891 [id number] Diagnostic /Lab: Order Presumptiv e UDT (necessary for rapid results) with Definitive confirmati on for chronic pain patient, to define treatment and reinforce therapeuti c compliance ; the following apply:[Pre sumptive UDT includes: (Amp, Debo, Jr, Bup, THC, CLARENCE, ETOH, Meth, Opi, Oxy )]*-Patien t is receiving controlled medication s.*-Presum ptive UDT to identify presence of illicit/no n-prescrib ed substance( s) - Confirm positive for ongoing safe prescribin g of controlled substances .*-Presump tive UDT to identify presence of licit/pres cribed substance( s)-Confirm unexpected results, identify specific drug(s) in large class and ensure appropriat e use of prescribed medication (s). _*-Definit ilya UDT inadequate ly detected by Presumptiv e UDT (gabapenti n, pregabalin , tramadol, fentanyl, tapentadol and carisoprod ol). HP2 (CBC/CMP/G GT) C BC - ordered to monitor the effects of prescribed medication CMP/GGT - ordered to obtain baseline levels for renal and hepatic functions and electrolyt e statusdraw n to monitor the longterm effects of current medication .Diagnosti c/Lab: Order Presumptiv e UDT (necessary for rapid results) with Definitive confirmati on for chronic pain patient, to define treatment and reinforce therapeuti c compliance ; the following apply:[Pre sumptive UDT includes: (Amp, Debo, Jr, Bup, THC, CLARENCE, ETOH, Meth, Opi, Oxy )]*-Patien t is receiving controlled medication s.*-Presum ptive UDT to identify presence of illicit/no n-prescrib ed substance( s) - Confirm positive for ongoing safe prescribin g of controlled substances .*-Presump tive UDT to identify presence of licit/pres cribed substance( s)-Confirm unexpected results, identify specific drug(s) in large class and ensure appropriat e use of prescribed medication (s). _*-Definit ilya UDT inadequate ly detected by Presumptiv e UDT (gabapenti n, pregabalin , tramadol, fentanyl, tapentadol and carisoprod ol).Diagno stic/Lab: Order Presumptiv e UDT (necessary for rapid results) with Definitive confirmati on for chronic pain patient, to define treatment and reinforce therapeuti c compliance ; the following apply: [Presumpti ve UDT includes: (Amp, Debo, Jr, Bup, THC, CLARENCE, ETOH, Meth, Opi, Oxy )] *-Patient is receiving controlled medication s. *-Presumpt ilya UDT to identify presence of illicit/no n-prescrib ed substance( s) - Confirm positive for ongoing safe prescribin g of controlled substances . *-Presumpt ilya UDT to identify presence of licit/pres cribed substance( s)-Confirm unexpected results, identify specific drug(s) in large class and ensure appropriat e use of prescribed medication (s). *-Definiti ve UDT inadequate ly detected by Presumptiv e UDT (gabapenti n, pregabalin , tramadol, fentanyl, tapentadol and carisoprod ol). Low back pain [id number] M54.50 [id number] DAVID WASHINGTON MD [address] [facility] [address] [place] [address] 02/06/2025 13:28:18 02/09/2025 16:39:39 Low back pain 577121262 M54.50 [id number] Sandy Lloyd, [employer] [address] [address] 04/05/2025 13:38:37 04/05/2025 14:14:42 Neck pain 33040133 M54.2 Low back pain 795350786 M54.50 Lumbar spondylosis 62940 0009 M47.816 [id number] Long-term current use of opiate analgesic drug [id number] 62626 Z79.891 Diagnostic /Lab: Order Presumptiv e UDT (necessary for rapid results) with Definitive confirmati on for chronic pain patient, to define treatment and reinforce therapeuti c compliance ; the following apply: [Presumpti ve UDT includes: (Amp, Debo, Jr, Bup, THC, CLARENCE, ETOH, Meth, Opi, Oxy )] *-Patient is receiving controlled medication s. *-Presumpt ilya UDT to identify presence of illicit/no n-prescrib ed substance( s) - Confirm positive for ongoing safe prescribin g of controlled substances . *-Presumpt ilya UDT to identify presence of licit/pres cribed substance( s)-Confirm unexpected results, identify specific drug(s) in large class and ensure appropriat e use of prescribed medication (s). *-Definiti ve UDT inadequate ly detected by Presumptiv e UDT (gabapenti n, pregabalin , tramadol, fentanyl, tapentadol and carisoprod ol). [id number] Sandy Lloyd, RICH 6 [address] [address] [address] 06/06/2025 13:38:39 06/12/2025 15:06:03 Neck pain [id number] M54.2 Low back pain [id number] M54.50 Lumbar spondylosis 32145 0009 M47.816 83066 Long-term current use of opiate analgesic drug [id number] 75375 Z79.712 [id number] Flaca FariasNishi Enaloraine, SUBSTATION OPERATOR TRANSFORMING [address] [facility] [address] [place] [address] 08/03/2025 11:19:56 08/03/2025 11:40:43 Long-term current use of opiate analgesic drug [id number] 82558 Z79.891 Diagnostic /Lab: Order Presumptiv e UDT (necessary for rapid results) with Definitive confirmati on for chronic pain patient, to define treatment and reinforce therapeuti c compliance ; the following apply: [Presumpti ve UDT includes: (Amp, Debo, Jr, Bup, THC, CLARENCE, ETOH, Meth, Opi, Oxy )] *-Patient is receiving controlled medication s. *-Presumpt ilya UDT to identify presence of illicit/no n-prescrib ed substance( s) - Confirm positive for ongoing safe prescribin g of controlled substances . *-Presumpt ilya UDT to identify presence of licit/pres cribed substance( s)-Confirm unexpected results, identify specific drug(s) in large class and ensure appropriat e use of prescribed medication (s). *-Definiti ve UDT inadequate ly detected by Presumptiv e UDT (gabapenti n, pregabalin , tramadol, fentanyl, tapentadol and carisoprod ol). Low back pain [id number] M54.50 Lumbar spondylosis 51432 0009 M47.816 21687 Health Concerns Section Related Observation LastModified by Organization Detai ls LastModified Time None Recorded Concern Status LastModified by Organization Details LastModified Time None Recorded Advance Directives Directive None Recorded Payers Insurance Date Sequence Insurance Name Policy Number Policy Jackson Covered Member ID Jackson Member ID Guarantor Name 12/01/2024 1 [employer] (MEDICARE REPLACEMENT/ ADVANTAGE - PPO) [id number] Suri Schulz [id number] Suri Schulz 02/06/2025 2 [place] Suri Schulz [id number] Suri Schulz 08/30/2025 1 [employer] (MEDICARE REPLACEMENT/ ADVANTAGE - HMO) Suri Schulz [id number] Suri Schulz Notes Date Note Type Note Provider Name and Address Organization Details Recorded Time 12/06/2024 text/html KIANNA report reviewed and compliant. Pain is in lower back and legs. Pain feels like stabbing and grabbing pain, Pain keeps awake at night. Pain is constant Pain gets intense and severe. Pain made better by sitting. Pain made worse by bending and lifting. Pain does radiate. Patient is a follow up. Medical management is stable and no changes today DAVID WASHINGTON MD [address] [place], [address], [facility] 12/06/2024 14:04:03 02/06/2025 text/html KIANNA reviewed and found compliant, Pain is located in lower back and right foot /ankle. Pain feels like sharp and burning and ache, Pain is constant. Pain keeps him awake at night. Pain gets intense and severe at times. Pain made better by meds. Pain made worse by walking. Pain does radiate. Patient is a follow up. Medical management is stable and no changes today DAVID WASHINGTON MD [address] [facility], [place], [address], [facility] 02/06/2025 13:42:24 04/05/2025 text/html Neck and LBP are unchanged. She states pain is constant but varies. It is aggravated by over-exertion, flexion, lifting, stooping, pushing/pulling, and reaching.Lives w/ her spouse and he helps her out around the houseMedications provide partial relief without SE Sandy Lloyd, RICH [address] [facility], [place], [address], [facility] 04/06/2025 10:38:32 06/06/2025 text/html Neck and LBP are unchanged. She states pain is constant but varies. It is aggravated by over-exertion, flexion, lifting, stooping, pushing/pulling, and reaching.Lives w/ her spouse and he helps her out around the houseMedications provide partial relief without SE Sandy Lloyd, SUBSTATION OPERATOR TRANSFORMING [address], [place], [address], [place] [facility] 06/08/2025 15:53:03 08/03/2025 text/html Patient is followed for chronic neck and back pain. Neck and LBP are unchanged. She states pain is constant but varies. It is aggravated by over-exertion, flexion, lifting, stooping, pushing/pulling, and reaching. She says that heating pad helps, and resting helps her pain.she takes care of her mom also which makes her pain worseLives w/ her spouse and he helps her out around the houseMedications provide partial relief without SE Flaca Matta, SUBSTATION OPERATOR TRANSFORMING [address], [place], [address], [place] [facility] 08/07/2025 00:16:17 OBGyn Episode No OBEpisode recorded.
--- OUTSIDE RECORDS SUMMARY | 2025-09-07 03:55 | XMS_ITS | Clinical Summary ---
Author Organization [facility] Address [address] [place] [address] Phone Care Team Providers Care Senior Network Security Engineer Name Role Phone Pcp, Pending Only MD Primary Care Provider Allergies Active Allergy Reactions Criticality Noted Date Comments Tramadol Vomiting 09/12/2015 Medications hydrocodone-merlyn taminophen (NORCO) 10-325 MG TABS Take 1 tablet by mouth every 6 (six) hours as needed. Active linaclotide (LINZESS) 290 MCG CAPS Take 145 mcg by mouth every morning before breakfast. Active citalopram (CELEXA) 20 MG TABS Take 20 mg by mouth daily. Active buPROPion (WELLBUTRIN) 100 MG TABS Take 300 mg by mouth daily. Active cetirizine (ZYRTEC) 10 MG TABS Take 10 mg by mouth daily. Active oxycodone-aceta minophen (PERCOCET) 5-325 MG TABS Take 1 tablet by mouth every 4 (four) hours as needed for up to 15 doses. 15 tablet 0 09/12/2015 Active ondansetron (ZOFRAN) 8 MG TABS Take 1 tablet by mouth every 8 (eight) hours as needed for up to 10 doses. 10 tablet 0 09/12/2015 Active Social History Tobacco Use Types Packs/Day Years Used Date Smoking Tobacco: Former Cigarettes 0 Q uit: 08/29/2015 Alcohol Use Standard Drinks/Week Comments No 0 (1 standard drink = 0.6 oz pur e alcohol) Comments Unknown Sex and Gender Information Value Date Recorded Sex Assigned at Not on file Legal Sex Female 11:53 PM EST Gender Identity Not on file Sexual Orientation Not on file Last Filed Vital Signs Vital Sign Reading Time Taken Comments Blood Pressure 138/76 09/12/2015 12:02 AM EST Pulse 82 09/12/2015 12:02 AM EST Temperature 36.7 C (98.1 F) 09/12/2015 12:02 AM EST Respiratory Rate 20 09/12/2015 12:02 AM EST Oxygen Saturation - - Inhaled Oxygen Concentration - - Weight 81.6 kg (180 lb) 09/12/2015 12:04 AM EST Height 180.3 cm (5' 11 ) 09/12/2015 12:04 AM EST Body Mass Index 25.1 09/12/2015 12:04 AM EST Plan of Treatment Health Maintenance Due Date Last Done Comments Hepatitis C Screening 1964 DTap,Tdap,and Td (1 - Tdap) 1975 Pap Screening 1985 Mammogram Screening 2004 Colonoscopy 2009 Pneumococcal 50+ (1 of 1 - PCV) 2014 Shingrix (#1) 2014 Influenza Vaccine (#1) 2025 RSV Vaccine (60+ or ) (1 - 1-dose 75+ series) 2039 HPV Aged Out No longer eligi ble based on patient's age to complete this topic Meningococcal conjugate chanel nt 4 (MCV4) Aged Out No longer eligible b ased on patient's age to complete this topic RSV Immunization (<20 months) Aged Out No longer eligible based on patient's age to complete this topic Insurance [facility] MEDICARE ALL OTHER Care Teams Senior Network Security Engineer Relationship Specialty Start Date End Date Pcp, Pending Only, [place] [address] PCP - General Internal Medicine 09/12/15
--- OUTSIDE RECORDS SUMMARY | 2025-09-07 03:55 | XMS_ITS | Encounter Summary ---
Author Organization Healthcare Address [address] [id number] Care Team Providers Care Group Tester Name Role Phone Kika Perkins DISTRIBUTION ANALYST Primary Care Provider [phone] Chelo Oliva LPN Unavailable Unavailab le Reason for Visit * Reason Comments Med Refill Encounter Details Date Type Department Care Team (Late st Contact Info) Description 12/10/2021 Refill [facility] [address] [place] [address] Kika Perkins APRN [address] [place] [address] Social History Tobacco Use Types Packs/Day Years Used Date Smoking Tobacco: Light Smoker Comments Unknown Sex and Gender Information Value Date Recorded Sex Assigned at Not on file Legal Sex Female 6:40 PM EDT Gender Identity Not on file Sexual Orientation Not on file documented as of this encounter Miscellaneous Notes * Telephone Encounter - Suri Ferreira - 12/10/2021 8:33 PM EST Refill request does not meet protocol. Sending to clinic for review. Additional info: Last filled 10/22/2021 for 30 day supply with one refill and note that appt neededfor additional refills. documented in this encounter Plan of Treatment Not on file documented as of this encounter Visit Diagnoses Not on filedocumented in this encounter Care Teams Group Tester Relationship Specialty Start Date End Date Kika Perkins APRN [address] [place] [address] PCP - General 03/01/21 Chelo Oliva LPN VALUE-BASED TRANSFORMATION PROGRAM None Licensed Practical Nurse 03/31/24 04/04/24 documented as of this encounter
--- OUTSIDE RECORDS SUMMARY | 2025-09-07 03:55 | XMS_ITS | Clinical Summary ---
Author Organization Healthcare Address [address] [id number] Care Team Providers Care Sourcing Engineer Name Role Phone Kika Perkins APRN Primary Care Provider Allergies Active Allergy Reactions Criticality Noted Date Comments Ciprofloxacin Shortness of breath High 08/31/2023 Dextromethorphan Swelling High 03/28/2019 Tramadol Other - please docum ent in the comment field,Unknown - Patient states they do not know rxn details Low 01/12/2015 Jackson sick cannot remember exact reaction Medications gabapentin (Neurontin) 600 MG tablet Take 1 tablet (600 mg) by mouth every night. 8 Active hydroCHLOROthiazi de (HYDRODiuril) 12.5 MG tabletIndications :Essential (primary) hypertension Take 1 tablet (12.5 mg) by mouth 1 (one) time each day. 30 tablet 5 3 Active oxyCODONE (Roxicodone) 10 MG immediate release tablet Take 1 tablet (10 mg) by mouth 4 (four) times a day. Active fluticasone (Flonase) 50 MCG/ACT nasal sprayIndications: Non-seasonal allergic rhinitis, unspecified trigger Administer 1 spray into each nostril 1 (one) time each day. Shake gently. Before first use, prime pump. After use, clean tip and replace cap. 16 g 12 4 Active busPIRone (Buspar) 10 MG tablet TAKE 1 TABLET THREE TIMES DAILY 270 tablet 3 4 Active meclizine (Antivert) 12.5 MG tabletIndications :Vertigo TAKE ONE TABLET BY MOUTH 3 TIMES A DAY NEEDED FOR DIZZINESS 30 tablet 1 5 Active atorvastatin (Lipitor) 20 MG tablet Take 1 tablet by mouth daily. 90 tablet 3 5 Active omeprazole (PriLOSEC) [address] capsule Take 1 capsule by mouth 2 times a day. DO NOT CRUSH OR CHEW 180 capsule 2 5 Active buPROPion XL (Wellbutrin XL) 300 MG 24 hr tablet TAKE ONE TABLET BY MOUTH EVERY MORNING 90 tablet 1 5 Active rizatriptan (Maxalt) 10 MG tabletIndications :Migraine without aura and without status migrainosus, not intractable Take 1 tablet by mouth 1 time as needed for migraine. May repeat in 2 hours if unresolved. Do not exceed 30 mg in 24 hours. 9 tablet 2 5 Active sertraline (Zoloft) 50 MG tablet Take 2 tablets by mouth daily. 180 tablet 2 5 Active amLODIPine (Norvasc) 5 MG tabletIndications :Essential (primary) hypertension Take 1 tablet by mouth daily. 90 tablet 2 5 Active montelukast (Singulair) 10 MG tabletIndications :Non-seasonal allergic rhinitis, unspecified trigger TAKE ONE TABLET BY MOUTH AT BEDTIME 90 tablet 1 5 Active Active Problems Problem Noted Date Diagnosed Date DDD (degenerative disc disease), lumbar 04/30/20 18 Allergic rhinitis 01/11/2016 Anxiety 01/13/2015 Encounters Date Type Department Care Team Description 08/07/2025 Orders Only [facility] [address] [place] [address] Kika Perkins APRN Screening mammogram for breast cancer (Primary Dx) 07/27/2025 Refill [facility] [address] [place] [address] Kika Perkins APRN Non-seasonal allergic rhinitis, unspecified trigger 06/19/2025 Refill [facility] [address] [place] [address] Kika Perkins APRN Essential (primary) hypertension 06/09/2025 Refill [facility] [address] [place] [address] Kika Perkins APRN Migraine without aura and without status migrainosus, not intractable from Last 3 Months Immunizations Immunization Administration Dates Next Due Influenza, injectable, MDCK, preservative free, quadrivalent 07/31/2023,08/01/2022 Influenza, injectable, quadrivalent, preservativ e free 07/04/2020,10/05/2019 Influenza, recombinant, quad rivalent, injectable, preservative free 09/09/2021 Pneumococcal 20-adolfo Conj Vaccine 07/31/2023 Tdap 02/23/2025 Family History Medical History Relation Name Comments Cardiac disorder Mother Cerebral aneurysm Mother Hypertension Mother Cardiac disorder Other 1 Cerebral aneurysm Other 2 Hypertension Other 3 Relation Name Status Comments Mother Other 1 Other 2 Other 3 Social History Tobacco Use Types Packs/Day Years Used Date Smoking Tobacco: Light Smoker Cigarettes 0.5 40 Passive Smoke Exposure: Current Smokeless Tobacco: Never Tobacco Cessation:Ready to Q uit: No; Counseling Given: Yes Alcohol Use Standard Drinks/Week Comments Never 0 [...] place to sleep or slept in a retirement (including now)? No 04/05/2024 PHQ-9 Answer Date [...] any time in the past 12 m [facility], were you homeless or living in a retirement (including now)? No 02/23/2025 Safety and Environment [...] the past 12 months has th e Clouli, gas, oil, or water company threatened to [...] Sign Reading Time Taken Comments Blood Pressure 138/80 02/23/2025 2:37 PM EDT Pulse 67 02/23/2025 2:37 PM EDT Temperature 36.5 C (97.7 F) 02/23/2025 2:37 PM EDT Respiratory Rate 18 02/23/2025 2:37 PM EDT Oxygen Saturation 96% 02/23/2025 2:37 PM EDT Inhaled Oxygen Concentration - - Weight 69.5 kg (153 lb 3.2 oz) 02/23/2025 2:37 P M EDT Height 182.9 cm (6') 02/23/2025 2:37 PM EDT Body Mass Index 20.78 02/23/2025 2:37 PM EDT Plan of Treatment Health Maintenance Due Date Last Done Comments [facility]-HIV Screening 1964 [facility]-Hepatitis C Screening 1964 [facility]-/Child/Adol SDOH Screenings 1964 CT Colonography 2009 FIT-DNA 2009 FIT 2009 FOBT 2009 Sigmoidoscopy 2009 Lung Cancer Screening Shared Decision Making 2014 [facility]-Zoster Vaccines (1 of 2) 2014 [facility]-Lung Cancer Screening 06/18/2023 06/18/2022 [facility]-Medicare Annual Wellness (AWV) 04/05/2025 04/05/2024 [id number] Vaccine ( season) 2025 09/25/2022, 08/16/2021, 12/26/2020 [facility]-Influenza Vaccine (#1) 06/19/202507/31, 08/01/2022, 09/09/2021, Additional history exists [facility]- SDOH Screenings 08/26/2025 [facility]-Adult SDOH Screenings 08/26/2025 02/23/2025 [facility]-Depression Screening 02/23/2026 02/23/2025, 05/0 05/2025 [facility]-Breast Cancer Screening 08/07/2027 08/07/2025 Colonoscopy 11/14/2030 11/14/2020 [facility]-Colorectal Cancer Screening 11/14/2030 [facility]-DTaP,Tdap,and Td Vaccines (2 - Td or Tdap) 02/23/2035 02/23/2025 [facility]-RSV Vaccine: 60+ Years or (1 - 1-dose 75+ series) 2039 [facility]-Pneumococcal Vaccine: 50+ Years Completed 07/31/2023 HPV Vaccines Aged Out No longer eligi ble based on patient's age to complete this topic [facility]-HIB Vaccines Aged Out No longer e ligible based on patient's age to complete this topic [facility]-Hepatitis A Vaccines Aged Out No longer eligible based on patient's age to complete this topic [facility]-IPV Vaccines Aged Out No longer e ligible based on patient's age to complete this topic [facility]-Rotavirus Vaccines Aged Out No lo nger eligible based on patient's age to complete this topic Procedures Procedure Name Priority Date/Time Associated Diagnosis Comments MAMMOGRAPHY EXTERNAL RESULTS 08/07/2025 COLONOSCOPY EXTERNAL RESULT 11/14/2020 from Last 3 Months or Most Recently Relevant to Health Maintenance Results * Mammography External Results (08/07/2025) Anatomical Region Laterality Modality Mammography Narrative 08/07/2025 Ordered by an unspecified provider. us External Provider IMG BI PROCEDURES Final Result * COLONOSCOPY EXTERNAL RESULT (11/14/2020) Anatomical Region Laterality Modality Endoscopy Narrative 11/14/2020 Ordered by an unspecified provider. us External Provider GI PROCEDURE ORDERABLES Final Result from Last 3 Months or Most Recently Relevant to Health Maintenance Insurance GENERIC MEDICARE ADVANTAGE Care Teams Sourcing Engineer Relationship Specialty Start Date End Date Kika Perkins, [employer] [address] [place] [address] [facility] - General 03/01/21
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
--- OUTSIDE RECORDS SUMMARY | 2025-09-07 03:56 | XMS_ITS | Encounter Summary ---
Author Organization Healthcare Address [address] [id number] Care Team Providers Care Extrusion Bender Name Role Phone Kika Perkins SILK BLOCKER Primary Care Provider [phone] Chelo Oliva LPN Unavailable Unavailab le Reason for Visit * Reason Comments Med Refill Encounter Details Date Type Department Care Team (Late st Contact Info) Description 07/24/2021 Refill Family and Community Medicine [address] [place] [address] Kika Perkins APRN [address] [place] [address] Social History Tobacco Use Types Packs/Day Years Used Date Smoking Tobacco: Light Smoker Comments Unknown Sex and Gender Information Value Date Recorded Sex Assigned at Not on file Legal Sex Female 6:40 PM EDT Gender Identity Not on file Sexual Orientation Not on file documented as of this encounter Miscellaneous Notes * Telephone Encounter - Mariaa Hoyt - 07/28/2021 10:26 AM EDT Per protocol, buspirone, have been approved for 90 day supply with 1 refill(s). The medication refill request(s) [facility]. documented in this encounter Plan of Treatment Not on file documented as of this encounter Visit Diagnoses Not on filedocumented in this encounter Care Teams Extrusion Bender Relationship Specialty Start Date End Date Kika Perkins APRN [address] [place] [address] PCP - General 03/01/21 Chelo Oliva LPN VALUE-BASED TRANSFORMATION PROGRAM None Licensed Practical Nurse 03/31/24 04/04/24 documented as of this encounter
--- OUTSIDE RECORDS SUMMARY | 2025-09-07 03:56 | XMS_ITS | Continuity of Care Document ---
Author Organization [facility] Address [address] [place] [address] Care Team Providers Care Appliance Servicer Name Role Phone NEGRO ADKINS Primary Care Provider Assessment Encounter Date Assessment Date Assessment LastModified by Organization Details LastModified Time 08/03/2025 08/03/2025 Global Risk Assessment Score: High [...] Details Appointments Office Visit15 2024 03:30P Imani Lloyd APRN Not available Not available Not available Office Visit15 2024 04:00P Imani MALAVE APRN Not available Not available Not available Office Visit15 2025 09:45A M Sandy Lloyd APRN Not available Not available Not available Office Visit15 2025 10:00A Imani Lloyd APRN Not available Not available Not available Lab drug screen, urine - Meds: percocet gabapenti n 2024 025 KINDRA Hobbs MD [facility] (In House Lab), [address] [facility], [place], [address], 08/11/2025 16:56:23 Referral None recorded. Procedures None recorded. Surgeries None recorded. Imaging None recorded. Medication Orders None recorded. Patient TargetsNo targets recorded. Patient Instructions Encounter Date Encounter Id Patient Instructions Last Modified By Organization Details Last Modified Time 08/03/2025 [id number] Patient seen today incident to a physician s previously established diagnosis and plan of care. Follow-up care provided today under the plan of care of: David Washington MD and supervision of: Gerry Cifuentes MD. [email or web address] Not available 08/03/2025 11:31:03 Reason for Referral None Reported. Results Created Date Observation Date Name Description Value Unit Range Abnormal Flag Note LastModifiedBy Organization Detail LastModifiedTime 08/03/2008/03/2025 GABAP ENTIN abnormal status abnormal Not Available Chelita Hobbs MD [facility] (In House Lab) [address] [place] [address], [address], 08/11/2025 16:56:25 08/03/2008/03/2025 GABAP ENTIN abnormal status high Not Available Chelita Hobbs MD [facility] (In House Lab) [address] [place] [address], [address], 08/11/2025 16:56:25 08/03/20 25 08/11/2025 OXYCO DONE DEFIN ITIVE PANEL -LC/M S oxycodone >5000 NG/mL <75.0 abnormal Not Available Napoleon Hobbs MD [facility] (In House Lab) [address] [place] [address], [address], 08/11/2025 16:56:24 08/03/20 25 08/11/2025 OXYCO DONE DEFIN ITIVE PANEL -LC/M S noroxycodone >5000 NG/mL <75.0 abnormal Not Available Jairo Hobbs MD [facility] (In House Lab) [address] [place] [address], [address], 08/11/2025 16:56:24 08/03/20 25 08/11/2025 OXYCO DONE DEFIN ITIVE PANEL -LC/M S oxymorphone 725.6 NG/mL <75.0 abnormal Not Available Shane Hobbs MD [facility] (In House Lab) [address] [place] [address], [address], 08/11/2025 16:56:24 08/03/20 25 08/11/2025 GABAP ENTIN DEFIN ITIVE PANEL -LC/M S gabapentin >18626 NG/mL <5000. 0 abnormal Not Available Napoleon Hobbs MD [facility] (In House Lab) [address] [place] [address], [address], 08/11/2025 16:56:23 08/03/2008/03/2025 D-PRE SUMPT ILYA URINE DRUG REPOR T amphetamine NEGATI VE NG/mL <1000. 0 Not Available Napoleon Hobbs MD [facility] (In House Lab) [address] [place] [address], [address], 08/11/2025 16:56:23 08/03/20 25 08/03/2025 D-PRE SUMPT ILYA URINE DRUG REPOR T benzodiazepi ne 100.0 NG/mL <200.0 Curre nt metho d may not detec t low level s of Klono pin Not Available Napoleon Hobbs MD [facility] (In House Lab) [address] [place] [address], [address], 08/11/2025 16:56:23 08/03/20 25 08/03/2025 D-PRE SUMPT ILYA URINE DRUG REPOR T buprenorphin e NEGATI VE NG/mL <10.0 Not Available Napoleon Hobbs MD [facility] (In House Lab) [address] [place] [address], [address], 08/11/2025 16:56:23 08/03/20 25 08/03/2025 D-PRE SUMPT ILYA URINE DRUG REPOR T cannabinoid NEGATI VE NG/mL <50.0 Not Available Napoleon Hobbs MD [facility] (In House Lab) [address] [place] [address], [address], 08/11/2025 16:56:23 08/03/20 25 08/03/2025 D-PRE SUMPT ILYA URINE DRUG REPOR T cocaine NEGATI VE NG/mL <300.0 Not Available Napoleon Hobbs MD [facility] (In House Lab) [address] [place] [address], [address], 08/11/2025 16:56:23 08/03/20 25 08/03/2025 D-PRE SUMPT ILYA URINE DRUG REPOR T ethanol NEGATI VE mg/dL <50.0 Not Available Napoleon Hobbs MD [facility] (In House Lab) [address] [place] [address], [address], 08/11/2025 16:56:23 08/03/20 25 08/03/2025 D-PRE SUMPT ILYA URINE DRUG REPOR T methadone 20.0 NG/mL <300.0 Not Available Napoleon Hobbs MD [facility] (In House Lab) [address] [place] [address], [address], 08/11/2025 16:56:23 08/03/20 25 08/03/2025 D-PRE SUMPT ILYA URINE DRUG REPOR T opiates 179.0 NG/mL <300.0 Opiat es inclu kory Codei ne,Mo rphin e, Converse morph one,H ydroc odone Not Available Napoleon Hobbs MD [facility] (In House Lab) [address] [place] [address], [address], 08/11/2025 16:56:23 08/03/20 25 08/03/2025 D-PRE SUMPT ILYA URINE DRUG REPOR T oxycodone >793 NG/mL <300.0 high Not Available Napoleon Hobbs MD [facility] (In House Lab) [address] [place] [address], [address], 08/11/2025 16:56:23 08/03/20 25 08/03/2025 D-PRE SUMPT ILYA URINE DRUG REPOR T urine creatinine (validity test) 79.5 mg/dL 20.0 - 300.0 Not Available Napoleon Hobbs MD [facility] (In House Lab) [address] [place] [address], [address], 08/11/2025 16:56:23 Result Notes None recorded. Problems Name Problem SNOMED Code Status Onset Date Resolution Date Notes Provider Name and Address Organization Details Recorded Time Low back pain 267337260 Active 023 DAVID WASHINGTON MD [address] [place] [address], [address] , [facility] 08/04/2023 10:14:24 Problem Notes None recorded. Medical Equipment None Reported. Allergies Allergen ID Allergen Name Allergen Category Reaction Reaction Severity Criticality Documentation Date Start Date Code Code System Note Provider Name and Address Organization Details Recorded Time 28691 ciproflox acin medicatio n Not available Not available Not available 08/04/2023 2551 RxNorm Nathaly Lambert-Sl eet [facility] 3 10:02:23 22054 tramadol medicatio n Not available Not available Not available 08/04/2023 02896 RxNorm Nathaly Lambert-Sl eet [facility] 3 10:02:30 Medications Name Sig [...] Available Not Available Vitals Date Recorded Body mass index (BMI) Body weight Heart rate Systolic And Diastolic Provider Name and Address Organization Details Last Updated DateTime 08/03/2025 20.3 kg/m2 00846.86 g 65 /min 138/73 mm[Hg] [facility] 08/03/2025 11:25:01 Date Recorded Body height Body temperature Respiratory rate Pain severity - 0-10 verbal numeric rating [Score] - Reported Provider Name and Address Organization Details Last Updated DateTime 08/03/2025 182.88 cm 98.6 [degF] 16 /min 6 Nany Nichols [facility] 11:22:41 Social History Question Answer [...] History Nothing Reported. Medical History Condition Response Anxiety Disorder Y Acid Reflux (GERD) Y Headaches Y Fibromyalgia Y Hypertension Y Depression Y Kidney Disease Y Gynecological HistoryNo gynecological [...] ICD10 Code Diagnosis IMO Codes Diagnosis Note [id number] Flaca Matta, FRONT OF HOUSE MANAGER [address] [address] [place] [address] 08/03/2025 11:19:56 08/03/2025 11:40:43 Long-term current use of opiate analgesic drug [id number] 63856 Z79.891 Diagnostic /Lab: Order Presumptiv e UDT [...] tapentadol and carisoprod ol). Low back pain 791717569 M54.50 Lumbar spondylosis 48255 0009 M47.816 62647 Health Concerns Section Related Observation LastModified by Organization Detai ls LastModified Time None Recorded Concern Status LastModified by Organization Details LastModified Time None Recorded Payers Encounter Date Sequence Insurance Name Policy Number Policy Jackson Covered Member ID Jackson Member ID Guarantor Name 08/03/2025 1 [facility] (MEDICARE REPLACEMENT/ ADVANTAGE - HMO) Suri Rosalia Schulz [id number] Suri Schulz Notes Date Note Type Note Provider Name and Address Organization Details Recorded Time 08/03/2025 text/html Patient is followed for chronic [...] provide partial relief without SE Flaca Matta, FRONT OF HOUSE MANAGER [address], [place], [address], [facility] 08/07/2025 00:16:17 OBGyn Episode No OBEpisode recorded.
--- OUTSIDE RECORDS SUMMARY | 2025-09-07 03:56 | XMS_ITS | Data Portability ---
Author Organization [facility] DUNDEE CLOSED Address [address] [facility] [place] [address] Care Team Providers Care Land Degradation Analyst Name Role Phone NEGRO ADKINS Primary Care Provider Assessment No assessment recorded. Plan of Treatment Reminders Order Date Submit Date Provider Last Modified By Organization Details Last Modified Time Details Appointments None recorded. Lab None recorded. Referral None recorded. Procedures urodynamic testing, complex (PROC) 2022 024 [id number] Ck Rhoades Jr, MD, [address] [facility], [address], [place], [address], 4 11:14:51 Surgeries cystoscopy (SURG) 2022 023 [email or web address] Not available 10:59:03 Imaging None recorded. Medication Orders None recorded. Patient TargetsNo targets recorded. Patient Instructions Encounter Date Encounter Id Patient Instructions Last Modified By Organization Details Last Modified Time 12/29/2022 [id number] learning about healthy weight [email or web address] Not available 12/30/2022 11:13:37 Good candidate f or neuromodulation since she is not a candidate for anticholinergic therapy. [email or web address] Not available 12/30/2022 11:13:46 Reason for Referral None Reported. Procedures Surgical History Date Name Laterality Status Provider Name and Address Organization Details Recorded Time procedure on eye completed Murelene Arnold [facility] 12/29/2022 22:35:30 Cholecystectomy completed Murelene Arnold [facility] 12/29/2022 22:35:58 kidney excision completed Murelene Arnold [facility] 12/29/2022 22:36:25 accessory sinus excision completed Murelene Arnold [facility] 12/29/2022 22:37:02 insertion of bilateral breast prostheses completed Murelene Arnold [facility] 12/29/2022 22:37:28 Imaging Results None recorded. Procedure Notes None recorded. Medical Equipment None Reported. Allergies No known drug allergies Medications Name Sig Start Date Stop Date Status Note LastModified by Organization Details LastModified Time Maxalt-RETAIL MARKETING MANAGER 10 mg disintegra ting tablet Daily 2012 active Instructi ons: for migraines ;Frequenc y: daily;Alt Frequency : prn;Medic ation Descripti on: rizatript an; Dosage:1; Route:ora l; refills:5 ; Quantity: 6 tablet, disintegr ating Not Available Not Available Not Available Azopt 1 % eye drops,susp ension Three times a day active Duration: 10 days;Freq uency: tid;Medic ation Descripti on: brinzolam yamini ophthalmi c; Route:oph thalmic; refills:0 ; Quantity: 90 suspensio n Not Available Not Available Not Available Celexa 20 mg tablet Daily active Frequency : daily;Med ication Descripti on: citalopra m; Dosage:1; Route:ora l; refills:5 ; Quantity: 30 tablet Not Available Not Available Not Available fluticason e propionate 50 mcg/actuat ion nasal spray,susp ension Two times a day 2012 active Duration: 30 days;Inst ructions: 2 sprays each nostril BID, angling the tip of the applicato rtowards the top of the ear on the same side.;Charlie quency: bid;Medic ation Descripti on: fluticaso ne nasal; Dosage:2 sprays; Route:wanda al; refills:6 ; Quantity: 1 spray Not Available Not Available Not Available estradiol active Not Available Not Peg ilable Not Available Singulair active Not Available Not Peg ilable Not Available buspirone active Not Available Not Peg ilable Not Available Flexeril active Duration: 10 days;Medi cation Descripti on: cyclobenz aprine; Dosage:1; Route:ora l; refills:0 ; Quantity: 30 tablet Not Available Not Available Not Available gabapentin active Not Available Not Av ailable Not Available Wellbutrin SR active Not Available Not Available Not Available Combigan active Medicatio n Descripti on: brimonidi ne-timolo l ophthalmi c; Route:oph thalmic; refills:0 Not Available Not Available Not Available Linzess 145 mcg capsule active Medicatio n Descripti on: linacloti de; Route:ora l; refills:0 Not Available Not Available Not Available Linzess 290 mcg capsule Daily 2014 active Instructi ons: TAKE ONE CAPSULE BY MOUTH EVERY MORNING 30 MINUTES BEFORE BREAKFAST ;Frequenc y: daily;Med ication Descripti on: linacloti de; Dosage:1; Route:ora l; refills:0 ; Quantity: 30 capsule Not Available Not Available Not Available Auvi-Q 0.3 mg/0.3 mL injection, auto-injec tor As Directed 2012 active Instructi ons: Use one 0.3 mg IM injection as needed for severe allergic reaction; repeat in 10 minutes if needed; Call 911;Frequ ency: as direct.;M edication Descripti on: epinephri ne; Dosage:as directed; Route:inj ectable; refills:0 ; Quantity: 1 kit Not Available Not Available Not Available Vitals Date Recorded Body height Body mass index (BMI) Body weight Provider Name and Address Organization Details Last Updated DateTime 12/29/2022 182.88 cm 17.6 kg/m2 46206.01 g José Miguel Barrett [facility] 12/29/2022 22:30:00 Social History Question Answer Notes LastModified by Organizat ion Details LastModified Time Tobacco Smoking Status Current Every Day [facility]22 22:34:46 What Was The Date Of Your Most Recent Tobacco Screening? 12/29/2022 Information not available 12/29/2022 Sex: Unknown Functional Status Question Answer Note LastModified by Organization D etails LastModified Time What is your level of alcohol consumption? None Information not available 12/29/2022 Mental Status None recorded. Family History Relationship Description Onset Age of this Age Resolved Age Notes LastModified by Organization Details LastModified Time Unspecified Relation Diabetes mellitus [email or web address] Not available 2022 22:33:21 Unspecified Relation Family history of malignant neoplasm [email or web address] Not available 2022 22:33:30 Unspecified Relation Kidney stone [email or web address] Not available 12/17 22:33:55 Medical History Condition Response Kidney Stones Y Heart Arrhythmia Y Glaucoma Y Depression Y Anxiety Disorder Y Allergies/Hayfever Y Hypertension Y Gynecological HistoryNo gynecological history recorded. Obstetrics History GPAL:G 0 P 0 0 0 0 Past Encounters Encounter ID Performer Location Encounter Start Date Encounter Closed Date Diagnosis/Indication Diagnosis SNOMED-CT Code Diagnosis ICD10 Code Diagnosis IMO Codes Diagnosis Note [id number] [facility] [address] 01/19/2017 17:45:24 01/19/2017 17:45:24 [id number] CK RHOADES JR, MD [facility] [id number] [facility] [place] [address] 12/29/2022 14:00:09 12/31/2022 04:07:36 Urge incontinence of urine [id number] N39.41 Health Concerns Section Related Observation LastModified by Organization Detai ls LastModified Time None Recorded Concern Status LastModified by Organization Details LastModified Time None Recorded Advance Directives Directive None Recorded Payers Insurance Date Sequence Insurance Name Policy Number Policy Jackson Covered Member ID Jackson Member ID Guarantor Name 12/31/2022 [employer] (MEDICARE REPLACEMENT/ ADVANTAGE - PPO) Suri Lindsey Zeus [id number] Suri Lindsey Zeus 12/31/2022 1 [employer] Suri Scuhlz [id number] Suri Schulz 12/31/2022 1 [employer] (MEDICARE REPLACEMENT/ ADVANTAGE - PPO) Suri Lindsey Zeus [id number] Suri Rosalia Schulz 12/31/2022 1 [employer] (MEDICARE SUPPLEMENT) Suri Rosalia Schulz [id number] Suri Rosalia Schulz Notes Date Note Type Note Provider Name and Address Organization Details Recorded Time 12/29/2022 text/html Patient is in today for evaluation of urinary incontinence. She describes urgency and frequency of urination with significant episodes of urgency urinary incontinence on a daily basis. She denies stress incontinence. She is not a candidate for anticholinergic therapy secondary to severe glaucoma. She is interested in further therapy. She denies hematuria. She denies dysuria. She denies recurrent urinary tract infections. CK RHOADES JR, MD [address] [place], [address], [facility] 12/30/2022 11:14:06 OBGyn Episode No OBEpisode recorded.
--- NOTE | 2025-09-07 04:10 | HMH.EDGENADL ---
Discharge Plan Disposition Patient Disposition: Admitted Condition: Good Prescriptions Prescriptions: No Action bupropion HCl [Wellbutrin XL] 300 mg tablet extended release 24 hr 300 mg PO DAILY buspirone 10 mg tablet 10 mg PO BID sumatriptan succinate 100 mg tablet 100 mg PO ONCE PRN (Reason: MIGRAINES) omeprazole 40 mg capsule,delayed release(DR/EC) 40 mg PO DAILY amlodipine 10 mg tablet 10 mg PO DAILY sertraline 50 mg tablet 50 mg PO DAILY potassium chloride 20 mEq tablet,ER particles/crystals 20 meq PO DAILY hydrochlorothiazide 12.5 mg tablet 12.5 mg PO DAILY montelukast 10 mg tablet 10 mg PO QPM gabapentin 600 mg tablet 600 mg PO TID Qty: 90 0RF oxycodone-acetaminophen 7.5-325 mg tablet 7.5 tab PO NEEDED PRN (Reason: Pain) Referrals Follow up/Referrals: Kika Perkins [Primary Care Provider, Medical] - See instructions Clinical Impressions Clinical Impression: Pyelonephritis, Unsteadiness on feet Print Language Print Language: Tamazight Discharge ED Provider: Greg Bradford General Adult HPI General Chief complaint: Neuro Symptoms/Deficit Stated complaint: abd pain, fever, chills, pain when urinating Time Seen by Provider: 09/07/25 03:50 History of Present Illness HPI narrative: 60-year-old female presents to the ER with complaints of unsteadiness on the feet. Patient reports about 5 days ago she started having hot and cold episodes and has run a fever as high as 104 at home. She only reports mild low left flank pain in the back with a sensation of something in the urethra but denies true dysuria or hematuria. Denies nausea or vomiting. Patient reports the last time she was able to walk normal was 5 hours prior to arrival. She woke up around 1 AM and was very unsteady on her feet feeling like she was bouncing off the robert. She states she actually walked into a door at home. She is legally blind and has significant vision deficits at baseline. She states her vision is not acutely changed from baseline. She has no numbness, tingling, or focal weakness. Denies headache. Denies chest pain or difficulty breathing. Reports mild dry cough but no congestion. No other associated symptoms. Related Data Home Medications ?Medication ?Instructions ?Recorded ?Confirmed montelukast 10 mg tablet 10 mg PO QPM allergies 09/23/18 09/24/23 bupropion HCl 300 mg 24 hr tablet, 300 mg PO DAILY MOOD 05/16/22 09/24/23 extended release (Wellbutrin XL) buspirone 10 mg tablet 10 mg PO BID MOOD 05/16/22 09/24/23 amlodipine 10 mg tablet 10 mg PO DAILY BLOOD PRESSURE 12/30/22 09/24/23 omeprazole 40 mg capsule,delayed 40 mg PO DAILY GERD 12/30/22 09/24/23 release sertraline 50 mg tablet 50 mg PO DAILY MOOD 12/30/22 09/24/23 sumatriptan succinate 100 mg tablet 100 mg PO ONCE PRN MIGRAINES 12/30/22 09/24/23 hydrochlorothiazide 12.5 mg tablet 12.5 mg PO DAILY bp 07/14/23 09/24/23 potassium chloride 20 mEq 20 meq PO DAILY Supplement 07/14/23 09/24/23 tablet,extended release(part/cryst) oxycodone-acetaminophen 7.5 mg-325 7.5 tab PO NEEDED PRN Pain 08/27/23 09/24/23 mg tablet Previous Rx's ?Medication ?Instructions ?Recorded gabapentin 600 mg tablet 600 mg PO TID Pain #90 tabs 06/10/23 Allergies Allergy/AdvReac Type Severity Reaction Status Date / Time ciprofloxacin Allergy Severe Difficulty Verified 09/24/23 09:20 Breathing tramadol Allergy Verified 09/24/23 09:20 [facility] Disclaimer: The information contained in this section may have been updated after the patient was seen, as this information can be updated by other users. Medical History History of back pain History of cataract History of deviated nasal septum Hypertension Legally blind Migraine Mitral valve prolapse Surgical History History of breast implant History of colonoscopy History of eye surgery History of laparoscopic cholecystectomy History of LAVH History of right nephrectomy History of sinus surgery Family History Other Family history of diabetes mellitus type II Social History Smoking Status: Current every day smoker tobacco type: cigarettes packs per day: 1 alcohol intake: never substance use type: denies use current occupational status: disabled Travel in the last 8 weeks?: None household members: spouse housing: house Have you lived/traveled outside US in past 30 days?: No Contact w/someone who lives/traveled outside US past 30 days?: No Exposure to someone with infectious disease in past 14 days?: No Do you have a fever (greater than 100.4 F or 38 C)?: Yes Have you tested positive for COVID-19?: No Exposed to someone with COVID-19 in past 14 days?: No Do you have a sore throat?: No Do you have a cough?: No Do you have any weakness?: Yes Do you have any diarrhea?: No Are you experiencing any unusual bleeding?: No Do you have any muscle aches/pain?: No Do you have any abdominal pain?: Yes Are you experiencing loss of taste or smell?: No Other Medical History Have you received the Flu Vaccine for this season: Yes Have you received the Pneumonia Vaccine: No ROS Obtained: Yes Systems reviewed as appropriate & no additional complaints except as documented Per HPI Physical Exam General General appearance: alert and in no apparent distress Head Head exam: atraumatic and normocephalic Eye Eye exam: Present PERRL and EOMI ENT ENT exam: Present mucous membranes moist Neck Neck exam: Present normal inspection and full ROM Chest Chest inspection: Present symmetric chest wall rise Respiratory Respiratory exam: Present normal lung sounds bilaterally; Absent respiratory distress, wheezes or stridor Cardiovascular Cardiovascular exam: Present regular rate and normal rhythm Abdominal Exam Abdominal exam: Present soft; Absent distention or tenderness Extremities Exam Extremities exam: Present full ROM; Absent edema Neurological Exam Neurological exam: Present alert, oriented X3 and other (Complete hemianopia left visual field, patient reports this is baseline, past-pointing with right upper extremity on [id number], NIH 3); Absent motor sensory deficit Psychiatric Psychiatric exam: Present normal affect and normal mood Skin Skin exam: Present warm and dry Medical Decision Making Medical Records Medical records reviewed: Yes I reviewed the patient's medical records. Screening: Per USPSTF and CDC recommendations, given the prevalence of disease in our region, it is our hospital?s policy to screen for HIV and viral Hepatitis for all patients aged 18 and over and those with ongoing risk factors. Fernando Inquiry Pt receiving controlled substance: No Vital Signs: 09/07/25 03:50 09/07/25 03:55 09/07/25 04:00 Temperature 100.4 F H Temperature Source Oral Pulse Rate 91 H Pulse Rate [Left] 83 Respiratory Rate 12 Blood Pressure 128/82 142/73 H Blood Pressure [Right Arm] 142/73 H Blood Pressure Mean 110 Blood Pressure Mean [Right Arm] 96 Blood Pressure Source [Right Arm] Automatic Cuff Blood Pressure Position [Right Arm] Supine 02 Sat by Pulse Oximetry 98 98 Oxygen Delivery Method Room Air 09/07/25 04:56 09/07/25 05:00 Temperature Temperature Source Pulse Rate 78 76 Pulse Rate [Left] Respiratory Rate 17 20 Blood Pressure 112/64 123/63 Blood Pressure [Right Arm] Blood Pressure Mean Blood Pressure Mean [Right Arm] Blood Pressure Source [Right Arm] Blood Pressure Position [Right Arm] 02 Sat by Pulse Oximetry 96 95 Oxygen Delivery Method Lab Data Lab Results 09/07/25 03:50: Urine Color Yellow, Urine Appearance Cloudy, Urine pH 6.0, Ur Specific [place] 1.010, Urine Protein 1+ A, Urine Glucose (UA) Negative, Urine Ketones Negative, Urine Blood 1+ A, Urine Nitrate Negative, Urine Bilirubin Negative, Urine Urobilinogen 0.2, Ur Leukocyte Esterase 1+ A, Ur Squamous Epith Cells Tntc, Urine Bacteria 3+, Urine Opiates Screen Positive H, Urine Methadone Screen Negative, Ur Barbituates Screen Negative, Ur Phencyclidine Scrn Negative, Ur Amphetamines Screen Negative, U Benzodiazepines Scrn Negative, Urine Cocaine Screen Negative, U Marijuana (THC) Screen Negative 09/07/25 04:08: WBC 13.9 H, Corrected WBC TNP, RBC 4.08 L, Hgb 11.8 L, Hct 35.7 L, MCV 87.5, MCH 28.9, MCHC 33.1, RDW 11.6, Plt Count 206, MPV 11.8 H, Neut % (Auto) 77.3, Lymph % (Auto) 9.6 L, Kendall % (Auto) 11.8 H, Eos % (Auto) 0.7, Baso % (Auto) 0.2, Neut # (Auto) 10.8 H, Lymph # (Auto) 1.3, Kendall # (Auto) 1.6 H, Eos # (Auto) 0.1, Baso # (Auto) 0.0, Total Counted 100, Neutrophils % (Manual) 79 H, Band Neutrophils % 0, Lymphocytes % (Manual) 8 L, Atypical Lymphs % 0, Monocytes % (Manual) 12 H, Eosinophils % (Manual) 1, Basophils % (Manual) 0, Metamyelocytes % 0, Myelocytes % 0, Promyelocytes % 0, Blast Cells % 0, Nucleated RBCs 0, Differential Comment N, Platelet Estimate Normal, PT 11.3, INR 1.02, APTT 28.3, Sodium 139, Potassium 3.0 L, Chloride 100, Carbon Dioxide 27, Anion Gap 15.0, BUN 14, Creatinine 1.20 H, Estimated Creat Clear 50, Estimated GFR 46 L, Est GFR ( Amer) 55 L, Glucose 119 H, Calcium 8.8, Magnesium 1.3 L, Total Bilirubin 0.6, AST 39 H, ALT 26, Alkaline Phosphatase 97, Troponin I < 0.01, Total Protein 6.8, Albumin 3.8, Globulin 3.0, Albumin/Globulin Ratio 1.3, Triglycerides 71, Cholesterol 84 L, LDL Cholesterol Direct 34.37 L, VLDL Cholesterol 14, HDL Cholesterol 36 L, Cholesterol/HDL Ratio 2.3, Plasma/Serum Alcohol < 10, HCV Ab GENARO w/Rflx PCR Qn Negative, HIV Ag/Ab Combo Qual Negative 09/07/25 04:56: Urine Color Yellow, Urine Appearance Clear, Urine pH 6.5, Ur Specific [place] <= 1.005, Urine Protein Negative, Urine Glucose (UA) Negative, Urine Ketones Negative, Urine Blood 1+ A, Urine Nitrate Negative, Urine Bilirubin Negative, Urine Urobilinogen 0.2, Ur Leukocyte Esterase Negative, Urine RBC Occasional, Urine WBC 5-10, Ur Squamous Epith Cells None, Urine Bacteria Trace 09/07/25 04:08 09/07/25 04:08 Orders (Tests/Meds): ED MEDICATIONS Generic Name Dose Route Start Last Admin Trade Name Freq PRN Reason Stop Dose Admin Magnesium Sulfate 2 gm in 50 mls @ 50 mls/hr 09/07/25 05:24 09/07/25 05:28 Magnesium Sulfate 2gm/50ml Premix IV 09/07/25 06:23 50 mls/hr ONCE ONE Administration Ceftriaxone Sodium 1 gm/ 50 mls @ 100 mls/hr 09/07/25 06:00 Sodium Chloride IV 09/17/25 05:59 Q24H AUDIE Sodium Chloride 10 ml 09/07/25 03:50 Sodium Chloride 0.9% 10ml Flush Syringe IV 10/07/25 03:49 NEEDED PRN Maintain IV Site Discontinued Medications Generic Name Dose Route Start Last Admin Trade Name Freq PRN Reason Stop Dose Admin Acetaminophen 1,000 mg 09/07/25 04:15 09/07/25 04:22 Acetaminophen 500mg Tab PO 09/07/25 04:16 1,000 mg ONCE ONE Administration Lactated Ringer's 1,000 mls @ 999 mls/hr 09/07/25 03:50 09/07/25 04:21 Lactated Ringer's 1000 Ml Bag IV 09/07/25 04:50 999 mls/hr .Q1H1M ONE Administration Iopamidol 155 ml 09/07/25 04:49 09/07/25 04:50 Iopamidol-370 (76%);100ml Bottle IV 09/07/25 04:50 155 ml ONCE ONE Administration Ondansetron HCl 4 mg 09/07/25 03:50 09/07/25 04:21 Ondansetron 4mg/2ml Vial IV 09/07/25 03:51 4 mg ONCE ONE Administration Potassium Chloride 40 meq 09/07/25 05:24 09/07/25 05:28 Potassium Chloride 20meq Tab PO 09/07/25 05:25 40 meq ONCE ONE Administration Sodium Chloride 50 ml 09/07/25 04:49 09/07/25 04:50 0.9 % Sodium Chloride 50 Ml Vial IV 09/07/25 04:50 50 ml ONCE ONE Administration Sodium Chloride 10 ml 09/07/25 04:49 09/07/25 04:50 Sodium Chloride 0.9% 10ml Syr (Rad Only) IV 09/07/25 04:50 10 ml ONCE ONE Administration ORDERS Category Date Time Status CT abdomen pelvis w con Stat Cat Scan 09/07/25 04:[address] angio head Stat Cat Scan 09/07/25 03:[address] angio neck Stat Cat Scan 09/07/25 03:[address] head/brain wo con Stat Cat Scan 09/07/25 03:50 Completed Activated Partial Thrombo Time Stat Lab 09/07/25 04:08 Completed Complete Blood Count Auto Diff Stat Lab 09/07/25 04:08 Completed Comprehensive Metabolic Panel Stat Lab 09/07/25 04:08 Completed Drug Screen,Urine Stat Lab 09/07/25 03:50 Completed Ethyl Alcohol Stat Lab 09/07/25 04:08 Completed HIV Combo Stat Lab 09/07/25 04:08 Completed Hepatitis C Ab Qual. W/ RFX Stat Lab 09/07/25 04:08 Completed Lipid Panel Stat Lab 09/07/25 04:08 Completed Magnesium Stat Lab 09/07/25 04:08 Completed Prothrombin Time INR Stat Lab 09/07/25 04:08 Completed Troponin I Q3H Lab 09/07/25 07:00 Ordered Troponin I Q3H Lab 09/07/25 10:00 Ordered Troponin I Stat Lab 09/07/25 04:08 Completed Urinalysis and Microscopic Stat Lab 09/07/25 03:50 Completed Urinalysis and Microscopic Stat Lab 09/07/25 04:56 Completed Blood Culture Stat Micro 09/07/25 05:52 Ordered Urine Culture Stat Micro 09/07/25 03:50 Received ECG Request Stat Y 09/07/25 03:50 Ordered Medical Decision Narrative: In summary, this 60-year-old female with 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 On initial evaluation patient is hemodynamically stable, febrile to 100.4, cardiopulmonary exam benign, abdominal exam benign, GCS 15, NIH 3 for single limb ataxia with past-pointing in the upper extremity, and complete hemianopia though patient reports this is at baseline. Differential diagnosis includes but is not limited to stroke, specifically posterior circulation stroke but patient's last known normal was 5 hours prior to arrival she was outside the window for stroke alert. I considered the possibility of electrolyte abnormality, dehydration, urinary tract infection, pyelonephritis, intra-abdominal infection, perinephric abscess, among others. Based on these concerns, I ordered hematologic and serum labs, urine studies, CT angiography of the head and neck, CT without contrast of the head, CT abdomen pelvis. ECG personally interpreted demonstrates sinus rhythm, rate 79, normal FL and QTc, normal axis, no STEMI. Patient did have an 11 beat run of SVT with no hemodynamic instability, she did not feel any symptoms when this happened. Patient received IV fluids initially for treatment. Labs personally reviewed demonstrate leukocytosis WBC 13.9, anemia hemoglobin 11.8 is nonactionable at this time, normal platelets, UA positive for blood, leukocyte esterase, and proteinuria, suspicious for infection and pyelonephritis, awaiting micro results. Micro demonstrates significant contamination with squamous cells so repeat urinalysis was collected which demonstrates blood and WBCs, no proteinuria. CT head personally interpreted demonstrates no acute intracranial bleed, mass, or midline shift, see radiology read for final interpretation. I received a phone call from the reading radiologist regarding CT angiography of the head and neck and he commented that he does not see any vessel occlusion and specifically in the areas that would be of concern with hemianopsia and cerebellar symptoms he does not appreciate abnormalities. No stroke identified. CT abdomen pelvis personally interpreted demonstrates perinephric stranding and the radiology read comments that there are findings consistent with pyelonephritis. Will treat the patient as though this is UTI and pyelonephritis. Blood cultures being collected and Rocephin being administered. CMP with hypokalemia, hypomagnesemia, magnesium and potassium are being repleted. Mild elevation of creatinine creatinine is 1.2, previous baseline 0.9. Troponin undetectably low less than 0.01. I discussed these findings and all results with the patient. I recommended admission to the hospital for treatment of pyelonephritis and further workup of dizziness/unsteadiness on the feet. She is agreeable to this. I reached out to the hospitalist, Terry, and spoke with them regarding this case including her multiple days of gradual worsening, new unsteadiness on her feet, fever, flank pain, and concerns for pyelonephritis. He graciously accepted the patient for admission. She was admitted in stable condition. Critical Care Critical Care Time Critical Care Time: No
[2025-09-07 04:17] LABS: Microscopic, Urine URINE MICROSCOPIC (MICROSCOPIC)
--- NOTE | 2025-09-07 04:18 | ECG_ITS ---
APPROVED REPORT Exam: Resting ECG HR:79 bpm ECG Measurements Heart Rate 79 AXES AL 144 P 73 QRSd 91 QRS 56 QT 375 T 68 QTc 410 Conclusion SINUS RHYTHM POSSIBLE RIGHT VENTRICULAR CONDUCTION DELAY [RSR (QR) IN V1/V2] No STEMI Electronically signed by : GREGORY GONZALEZ, 09/08/2025 02:06:08
[2025-09-07 04:21] LABS: Hematocrit 35.7 % (37.0-47.0); Hemoglobin 11.8 g/dL (12.2-16.2); Immature Granulocytes % 0.4 %; Mean Corpuscular HGB Conc 33.1 g/dL (31.8-35.4); Mean Corpuscular Hemoglobin 28.9 pg (27.0-31.2); Mean Corpuscular Volume 87.5 fl (81-99); Nucleated Red Blood Cells % 0 %; Platelet Count 206 K/mm3 (142-424); Red Blood Count 4.08 M/mm3 (4.20-5.40); Red Cell Distribution Width-SD 37.0 fL; White Blood Count 13.9 K/mm3 (4.8-10.8)
[2025-09-07] MEDS: ONDANSETRON 4MG/2ML VIAL 4 MG IV (04:21)
[2025-09-07] MEDS: LACTATED RINGERS 1000ML 1,000 ML 999 ML IV (04:21)
[2025-09-07 04:22] LABS: Bilirubin,Urine Negative (Negative); Color,Urine YELLOW (Yellow); Glucose,Urine (UA) Negative (Negative); Ketones,Urine Negative (Negative); Leukocyte Esterase,Urine 1+ (Negative); PH,Urine 6.0 (5.0-8.5); Protein,Urine 1+ (Negative); Specific Gravity, Urine 1.010 (1.005-1.030); Urobilinogen,Urine 0.2 EU/dl (0.2)
[2025-09-07] MEDS: ACETAMINOPHEN 500MG TAB 1000 MG PO (04:22)
--- NOTE | 2025-09-07 04:25 | CT_ITS ---
PROCEDURE INFORMATION: Exam: CT Abdomen And Pelvis With Contrast Exam date and time: 09/07/2025 4:37 AM Age: 60 years old Clinical indication: Abdominal pain; Additional info: Low L flank pain, fever TECHNIQUE: Imaging protocol: Computed tomography of the abdomen and pelvis with contrast. Radiation optimization: All CT scans at this facility use at least one of these dose optimization techniques: automated exposure control; mA and/or kV adjustment per patient size (includes targeted exams where dose is matched to clinical indication); or iterative reconstruction. Contrast material: ISOVUE; Contrast volume: 75 ml; Contrast route: IV; COMPARISON: CT ABDOMEN PELVIS W CON 07/24/2023 10:05 AM FINDINGS: Liver: Normal. No mass. Gallbladder and biliary ducts: Cholecystectomy. Pancreas: Normal. No ductal dilation. Spleen: Normal. No splenomegaly. Adrenal glands: Normal. No mass. Kidneys and ureters: A single left kidney is present, the patient is status post right nephrectomy. The left kidney demonstrates area of patchy cortical enhancement most prominent in the midpole but also seen in the upper and lower poles and there is mild perinephric edema. The left kidney is hypertrophied. Stomach and bowel: Unremarkable. No obstruction. No mucosal thickening. Appendix: No evidence of appendicitis. Intraperitoneal space: Unremarkable. No free air. No significant fluid collection. Vasculature: Unremarkable. No abdominal aortic aneurysm. Lymph nodes: Unremarkable. No enlarged lymph nodes. Urinary bladder: Unremarkable as visualized. Reproductive: Prominent Tarlov cysts are seen in the sacrum unchanged from prior.. Hysterectomy. Bones/joints: Unremarkable. No acute fracture. Soft tissues: Unremarkable. IMPRESSION: 1. Patchy enhancement of the left kidney most prominent in the midpole consistent with pyelonephritis. No evidence of abscess or obstruction noted. The left kidney is hypertrophied as the right kidney is absent. 2. Cholecystectomy. 3. Prominent Tarlov cysts in the sacrum unchanged from prior studies. 4. Hysterectomy.
[2025-09-07 04:29] LABS: Bacteria,Urine 3+ /lpf; Squamous Epithelial Cell,Urine TNTC #/hpf (0-5)
[2025-09-07 04:33] LABS: Barbiturates Screen,Urine Negative ng/ml (<200)
[2025-09-07 04:34] LABS: Amphetamine/Metha Screen,Urine Negative ng/ml (<1000)
[2025-09-07 04:36] LABS: Methadone Screen,Urine Negative ng/ml (<300)
[2025-09-07 04:37] LABS: Opiate Screen,Urine Positive ng/ml (<300)
[2025-09-07 04:38] LABS: Phencyclidine Screen,Urine Negative ng/ml (<25)
[2025-09-07 04:40] LABS: Benzodiazepines Screen,Urine Negative ng/ml (<200)
[2025-09-07 04:44] LABS: Albumin Level 3.8 g/dl (3.5-5.0); Chloride 100 mmol/L (98-107); Sodium 139 mmol/L (136-145)
[2025-09-07 04:46] LABS: Blood Urea Nitrogen 14 mg/dl (7-17); Creatinine Clearance Estimated 50 mL/min (50-200); Creatinine,Serum 1.20 mg/dl (0.52-1.04); Estimated Glomerular Filt Rate 46 ml/min (>60); GFR (African American) 55 ML/MIN (>60)
[2025-09-07 04:47] LABS: Alanine Aminotransferase 26 U/L (12-78); Albumin/Globulin Ratio 1.3 (1.1-1.8); Alkaline Phosphatase 97 U/L (38-126); Anion Gap 15.0 mEq/L (5-15); Aspartate Amino Transferase 39 U/L (14-36); Bilirubin,Total 0.6 mg/dl (0.2-1.3); Calcium 8.8 mg/dl (8.4-10.2); Carbon Dioxide 27 mmol/L (22.0-30.0); Cholesterol 84 mg/dl (140-200); Globulin 3.0 g/dL (1.3-3.2); Glucose 119 mg/dl (74-100); HDL Cholesterol 36 mg/dl (40-60); Total Protein,Serum 6.8 g/dl (6.3-8.2); Triglycerides 71 mg/dl (30-150)
[2025-09-07] MEDS: SODIUM CHLORIDE 0.9% 10ML SYR (RAD ONLY) 10 ML IV (04:50)
[2025-09-07] MEDS: IOPAMIDOL-370 (76%);100ML BOTTLE 155 ML IV (04:50)
[2025-09-07] MEDS: 0.9 % SODIUM CHLORIDE 50 ML VIAL IV (04:50)
[2025-09-07 04:52] LABS: Activated Partial Thrombo Time 28.3 seconds (22.8-30.6); INR 1.02 (0.9-1.1); Prothrombin Time 11.3 seconds (10.1-12.5)
[2025-09-07 04:54] LABS: Potassium 3.0 mmoL/L (3.5-5.1)
[2025-09-07 04:57] LABS: Total Cells Counted 100
--- NOTE | 2025-09-07 04:57 | PC.NURSE ---
critical K+ called from MD anthony notified at [id number]
[2025-09-07 04:58] LABS: Differential Comment N
[2025-09-07 05:02] LABS: Microscopic, Urine URINE MICROSCOPIC (MICROSCOPIC)
[2025-09-07 05:05] LABS: Bilirubin,Urine Negative (Negative); Color,Urine YELLOW (Yellow); Glucose,Urine (UA) Negative (Negative); Ketones,Urine Negative (Negative); Leukocyte Esterase,Urine Negative (Negative); PH,Urine 6.5 (5.0-8.5); Protein,Urine Negative (Negative); Specific Gravity, Urine <= 1.005 (1.005-1.030); Urobilinogen,Urine 0.2 EU/dl (0.2)
[2025-09-07 05:10] LABS: Magnesium 1.3 mg/dl (1.6-2.3)
[2025-09-07 05:13] LABS: Troponin I < 0.01 ng/ml (0.00-0.034)
[2025-09-07 05:15] LABS: Bacteria,Urine Trace /lpf; RBC,Urine Occasional #/hpf (0-3)
[2025-09-07] MEDS: MAGNESIUM SULFATE IN WATER 2 GM/50 ML PIGGYBACK IV ×4 (05:28→14:50)
[2025-09-07] MEDS: POTASSIUM CHLORIDE 20MEQ TAB 40 MEQ PO ×4 (05:28→17:57)
[2025-09-07 05:38] LABS: Hepatitis C Ab Qual. W/ RFX NEGATIVE (Negative)
[2025-09-07] MEDS: CEFTRIAXONE 1 GM 1 GM in 0.9 % SODIUM CHLORIDE 50 ML IV (06:00)
--- NOTE | 2025-09-07 06:18 | MR_ITS ---
FINAL REPORT CLINICAL HISTORY: Dizziness COMPARISON: None FINDINGS: Multi planar MR imaging was obtained through the brain without contrast. The midline structures appear intact. There is no evidence of Chiari malformation. On T2 and flair axial images the brain parenchyma demonstrates a few tiny foci of increased signal in the white matter, which are nonspecific. On diffusion-weighted images there is no evidence of restricted diffusion. There is mucoperiosteal thickening in the bilateral maxillary sinuses, greater on the left than on the right. The seventh and eighth nerve root complexes are intact. IMPRESSION: A few small foci of increased signal are seen in the white matter, which are nonspecific, however in this age group most likely to represent mild changes of ischemic microvascular disease. Mucoperiosteal thickening in the bilateral maxillary sinuses, greater on the left than the right. Reviewed, Interpreted and Dictated by Saul Bal MD Transcribed by Herminia Gastelum Authenticated and [facility]
--- NOTE | 2025-09-07 06:20 | PC.NURSE ---
lactic pulled at this time and sent to lab on ice
--- NOTE | 2025-09-07 06:22 | P.HP_ITS ---
<Statement entered by Jc Rodriguez MD - 09/07/25 16:30> Agree with plan of care as outlined by the ELECTRICAL CONTINUITY INSPECTOR. History of Present Illness *Admission Date: 09/07/25 *Reason for visit:: Unsteady on feet *History of present illness: This is a 60-year-old female who has a past medical history significant for hypertension, hyperlipidemia, irregular heart rate, glaucoma, and legally blind who presents with a chief complaint of being unsteady on her feet. Due to patient's symptoms, she presented to the emergency room for evaluation. While in the emergency room, CTA of the head and neck was negative for any LVO, CT scan of the head was negative for any acute intracranial process, and CT scan of the abdomen and pelvis revealed left kidney stranding consistent with pyelonephritis. Due to these findings, patient has been admitted for further management. Evaluation of the patient, patient states that she started to experience her symptoms approxi-5 days ago with hot and cold cells. She reports having a subjective fever of approximately 104 while at home. She mentions that she has been experiencing left lower flank pain and a sensation of something in her urethra when she urinates. Today, at approximately 1 AM, patient started to experience unsteadiness on her feet. This prompted her to present to the emergency room for evaluation. Patient does have a history of significant nephrolithiasis that led to a right nephrectomy. She is currently denying any focal headache, worsening of vision, paresthesia, lightheadedness, rigors, nausea, vomiting, shortness of breath, dyspnea, hematuria, or diarrhea. Additional pertinent vitals obtained including white blood cell count of 13.9, red blood cell count of 4.08, hemoglobin 11.8, hematocrit 35.7, neutrophils of of 79%, potassium of 3, creatinine 2.0, GFR 46, blood glucose 119, magnesium 1.3, AST of 39, and urinalysis revealed 1+ blood/5-10 white blood cells. [facility] Disclaimer: The information contained in this section may have been updated after the patient was seen, as this information can be updated by other users. Medical History History of back pain History of cataract History of deviated nasal septum Hypertension Legally blind Migraine Mitral valve prolapse Surgical History History of breast implant History of colonoscopy History of eye surgery History of laparoscopic cholecystectomy History of LAVH History of right nephrectomy History of sinus surgery Family History Other Family history of diabetes mellitus type II Social History Smoking Status: Current every day smoker tobacco type: cigarettes packs per day: 1 alcohol intake: never substance use type: denies use current occupational status: disabled Travel in the last 8 weeks?: None household members: spouse housing: house Have you lived/traveled outside [place] in past 30 days?: No Contact w/someone who lives/traveled outside US past 30 days?: No Exposure to someone with infectious disease in past 14 days?: No Do you have a fever (greater than 100.4 F or 38 C)?: Yes Have you tested positive for COVID-19?: No Exposed to someone with COVID-19 in past 14 days?: No Do you have a sore throat?: No Do you have a cough?: No Do you have any weakness?: Yes Do you have any diarrhea?: No Are you experiencing any unusual bleeding?: No Do you have any muscle aches/pain?: No Do you have any abdominal pain?: Yes Are you experiencing loss of taste or smell?: No Other Medical History Have you received the Flu Vaccine for this season: Yes Have you received the Pneumonia Vaccine: No Review of Systems Review of Systems Review of systems:: pertinent systems reviewed and negative unless documented below Constitutional Constitutional: Reports fever(s), Reports lethargy, Reports malaise and Reports weakness Eyes Eyes: Reports system reviewed and no additional complaints, except as documented ENT Ears, Nose, Mouth, and Throat: Reports system reviewed and no additional complaints, except as documented *Cardiovascular Cardiovascular: Reports system reviewed and no additional complaints, except as documented *Respiratory Respiratory: Reports system reviewed and no additional complaints, except as documented *Gastrointestinal Gastrointestinal: Reports abdominal pain *Genitourinary Genitourinary: Reports other Comments: Feels like something is in her urethra *Musculoskeletal Musculoskeletal: Reports abnormal gait Integumentary/Breasts Skin/Breast: Reports system reviewed and no additional complaints, except as documented *Neurologic Neurologic: Reports abnormal gait and Reports weakness Psychiatric Psychiatric: Reports system reviewed and no additional complaints, except as documented Endocrine Endocrine: Reports system reviewed and no additional complaints, except as documented Hematologic/Lymphatic Hematologic/Lymphatic: Reports system reviewed and no additional complaints, except as documented Allergic/Immunologic Allergic/Immunologic: Reports system reviewed and no additional complaints, except as documented Meds Home Medications and Allergies Home Medications ?Medication ?Instructions ?Recorded ?Confirmed ?Type montelukast 10 mg tablet 10 mg PO QPM allergies 09/2309/24/23 History bupropion HCl 300 mg 24 hr tablet, 300 mg PO DAILY MOO D 05/16/22 09/24/23 History extended release (Wellbutrin XL) buspirone 10 mg tablet 10 mg PO BID MOOD 05/16/22 1 11/25/22 History amlodipine 10 mg tablet 10 mg PO DAILY BLOOD PRESSUR E 12/30/22 09/24/23 History omeprazole 40 mg capsule,delayed 40 mg PO DAILY GERD 0 12/30/22 09/24/23 History release sertraline 50 mg tablet 50 mg PO DAILY MOOD 12/30/22 09/24/23 History sumatriptan succinate 100 mg tablet 100 mg PO ONCE PRN MIGRAINES 12/30/22 09/24/23 History gabapentin 600 mg tablet 600 mg PO TID Pain #90 tabs 06/10/23 09/24/23 Rx hydrochlorothiazide 12.5 mg tablet 12.5 mg PO DAILY bp 07/14/23 09/24/23 History potassium chloride 20 mEq 20 meq PO DAILY Supplement 0 07/14/23 09/24/23 History tablet,extended release(part/cryst) oxycodone-acetaminophen 7.5 mg-325 7.5 tab PO NEEDE D PRN Pain 08/27/23 09/24/23 History mg tablet New Prescriptions to Start Prescriptions: Allergies Allergy/AdvReac Type Severity Reaction Status Date / Time ciprofloxacin Allergy Severe Difficulty Verified 09/24/23 09:20 Breathing tramadol Allergy Verified 09/24/23 09:20 Exam Data for Last 24 hours Vital signs and Labs for Last 24 Hours: Temp Pulse Resp BP Pulse Ox O2 Del Method 100.4 F H 74 23 101/66 L 91 L Room Air 09/07/25 03:50 09/07/25 06:00 09/07/25 06:00 09/07/25 06:00 09/07/25 06:00 09/07/25 03:50 Laboratory Results - last 24 hr 09/07/25 03:50: Urine Color Yellow, Urine Appearance Cloudy, Urine pH 6.0, Ur Specific [place] 1.010, Urine Protein 1+ A, Urine Glucose (UA) Negative, Urine Ketones Negative, Urine Blood 1+ A, Urine Nitrate Negative, Urine Bilirubin Negative, Urine Urobilinogen 0.2, Ur Leukocyte Esterase 1+ A, Ur Squamous Epith Cells Tntc, Urine Bacteria 3+, Urine Opiates Screen Positive H, Urine Methadone Screen Negative, Ur Barbituates Screen Negative, Ur Phencyclidine Scrn Negative, Ur Amphetamines Screen Negative, U Benzodiazepines Scrn Negative, Urine Cocaine Screen Negative, U Marijuana (THC) Screen Negative 09/07/25 04:08: WBC 13.9 H, Corrected WBC TNP, RBC 4.08 L, Hgb 11.8 L, Hct 35.7 L, MCV 87.5, MCH 28.9, MCHC 33.1, RDW 11.6, Plt Count 206, MPV 11.8 H, Neut % (Auto) 77.3, Lymph % (Auto) 9.6 L, Hayes % (Auto) 11.8 H, Eos % (Auto) 0.7, Baso % (Auto) 0.2, Neut # (Auto) 10.8 H, Lymph # (Auto) 1.3, [place] # (Auto) 1.6 H, Eos # (Auto) 0.1, Baso # (Auto) 0.0, Total Counted 100, Neutrophils % (Manual) 79 H, Band Neutrophils % 0, Lymphocytes % (Manual) 8 L, Atypical Lymphs % 0, Monocytes % (Manual) 12 H, Eosinophils % (Manual) 1, Basophils % (Manual) 0, Metamyelocytes % 0, Myelocytes % 0, Promyelocytes % 0, Blast Cells % 0, Nucleated RBCs 0, Differential Comment N, Platelet Estimate Normal, PT 11.3, INR 1.02, APTT 28.3, Sodium 139, Potassium 3.0 L, Chloride 100, Carbon Dioxide 27, Anion Gap 15.0, BUN 14, Creatinine 1.20 H, Estimated Creat Clear 50, Estimated GFR 46 L, Est GFR ( Amer) 55 L, Glucose 119 H, Calcium 8.8, Magnesium 1.3 L, Total Bilirubin 0.6, AST 39 H, ALT 26, Alkaline Phosphatase 97, Troponin I < 0.01, Total Protein 6.8, Albumin 3.8, Globulin 3.0, Albumin/Globulin Ratio 1.3, Triglycerides 71, Cholesterol 84 L, LDL Cholesterol Direct 34.37 L, VLDL Cholesterol 14, HDL Cholesterol 36 L, Cholesterol/HDL Ratio 2.3, Plasma/Serum Alcohol < 10, HCV Ab GENARO w/Rflx PCR Qn Negative, HIV Ag/Ab Combo Qual Negative 09/07/25 04:56: Urine Color Yellow, Urine Appearance Clear, Urine pH 6.5, Ur Specific [place] <= 1.005, Urine Protein Negative, Urine Glucose (UA) Negative, Urine Ketones Negative, Urine Blood 1+ A, Urine Nitrate Negative, Urine Bilirubin Negative, Urine Urobilinogen 0.2, Ur Leukocyte Esterase Negative, Urine RBC Occasional, Urine WBC 5-10, Ur Squamous Epith Cells None, Urine Bacteria Trace I & O for Last 24 hours: Intake & Output 09/04/25 09/05/25 09/06/25 09/07/25 23:59 23:59 23:59 23:59 Weight 64.41 kg Constitutional Constitutional: no acute distress, thin and cooperative *Routine HEENT Exam Head: Present normocephalic and atraumatic Eye: Present EOMI ENT: Present mucous membranes moist and mucous membranes dry *Routine Neck Exam Neck: Present supple, full ROM and trachea midline *Routine Respiratory Exam Respiratory: Present CTA bilaterally, normal respiratory effort, able to speak in complete sentences and symmetric chest movement *Routine Cardiovascular Exam Cardiovascular: Present RRR, Normal S1 and Normal S2 *Routine Abdominal Exam Abdominal: Present soft and normoactive bowel sounds *Routine Rectal Exam Rectal:: deferred *Routine Genitalia Exam Genitalia:: deferred *Routine Extremities Exam Extremities: Present full ROM and normal capillary refill Routine Back/Spine/Pelvis Exam Back/Spine: Present full ROM *Routine Skin Exam Skin: Present intact, warm and normal turgor *Routine Neurological Exam Neurological: Present alert, oriented X3, CN II-XII intact, moving all extremities and normal speech Routine Psychiatric Exam Psychiatric: Present normal affect, normal thought process, cooperative, good insight and good judgment H&P: Result Impressions 66-year-old female presents with being unsteady on her feet and has multiple modifiable and nonmodifiable risk factors to include age, hyperlipidemia, hypertension, and half a pack a day multiyear smoking history was found to have imaging consistent with pyelonephritis. Assessment and Plan *Assessment and plan (1) Pyelonephritis: Status: Acute Category: Medical Code(s): N12 - Tubulo-interstitial nephritis, not specified as acute or chronic (2) Leukocytosis: Status: Acute Qualifiers: Leukocytosis type: unspecified Qualified Code(s): D72.829 - Elevated white blood cell count, unspecified Category: Medical Code(s): D72.829 - Elevated white blood cell count, unspecified (3) Fever: Status: Acute Qualifiers: Fever type: unspecified Qualified Code(s): R50.9 - Fever, unspecified Category: Medical Code(s): R50.9 - Fever, unspecified (4) Hypokalemia: Status: Acute Category: Medical Code(s): E87.6 - Hypokalemia (5) Acute kidney injury: Status: Acute Category: Medical Code(s): N17.9 - Acute kidney failure, unspecified (6) Hypomagnesemia: Status: Acute Category: Medical Code(s): E83.42 - Hypomagnesemia Plan Assessment: Left pyelonephritis Leukocytosis with left shift Fever -Will continue 1 g Rocephin IV daily - Blood cultures x 2 - Patient had a repeat culture of the urine because the first 1 was contaminated - Obtain venous lactic acid - Will monitor patient's urine culture and once sensitivities posted we will tailor antibiotics and sensitivity Rule out stroke - Patient is currently out of the tPA window - MRI of the brain without contrast - Will continue neurochecks - Will allow for permissive hypertension with systolic blood pressures up to 220 until MRI has proven negative for new stroke Acute kidney injury - Most likely prerenal - Continue IV hydration of LR at 100 mL an hour - Will monitor creatinine daily - 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 every 4 hours as needed moderate pain 21 mg nicotine patch daily 4 mg Zofran IV push every 8 hours pain nausea balm Full code I will discussed this case with attending physician Dr. Rodriguez and I look forward to more input
[2025-09-07] MEDS: LACTATED RINGERS 1000ML 1,000 ML 100 ML IV (06:56)
--- NOTE | 2025-09-07 07:00 | PC.NURSE ---
patient arrived to floor at [id number]
[2025-09-07 08:01] LABS: Troponin I < 0.01 ng/ml (0.00-0.034)
[2025-09-07] MEDS: HEPARIN SODIUM 5,000 UNIT/ML VIAL 5000 UNIT SUBCUT ×2 (08:17→20:19)
--- NOTE | 2025-09-07 08:48 | HMH.PHAINT1 ---
Pharmacy Intervention Comments: HOME MEDICATION LIST VERIFIED USING LIST FROM OUTPATIENT PHARMACY AND PATIENT INTERVIEW
[2025-09-07 08:56] LABS: Adenovirus,PCR Not Detected (NotDetected); Chlamydophila Pneumoniae, PCR Not Detected (NotDetected); Coronavirus 19, PCR Not Detected (NotDetected); Coronovirus HKU1,PCR Not Detected (NotDetected); Influenza A, PCR Not Detected (NotDetected); Influenza AH1, 2009 Not Detected (NotDetected); Influenza AH1, PCR Not Detected (NotDetected); Influenza AH3,PCR Not Detected (NotDetected); Influenza B, PCR Not Detected (NotDetected); Mycoplasma Pneumoniae, PCR Not Detected (NotDetected); Parainfluenza 1, PCR Not Detected (NotDetected); Parainfluenza 2, PCR Not Detected (NotDetected); Parainfluenza 3, PCR Not Detected (NotDetected); Parainfluenza 4, PCR Not Detected (NotDetected)
[2025-09-07 10:23] LABS: Troponin I < 0.01 ng/ml (0.00-0.034)
[2025-09-07 10:29] LABS: C-Reactive Protein 125.5 mg/L (0-4)
[2025-09-07] MEDS: AMLODIPINE 5MG TABLET 5 MG PO (10:31)
[2025-09-07] MEDS: GABAPENTIN 600MG TABLET 600 MG PO ×3 (10:31→20:19)
[2025-09-07] MEDS: SERTRALINE 100MG TABLET 100 MG PO (10:35)
[2025-09-07 10:42] LABS: Procalcitonin 0.263 ng/mL (0.0-2.0)
[2025-09-07] MEDS: OXYCODONE 10MG W/APAP 325MG TABLET 1 EACH PO ×2 (13:08→20:22)
[2025-09-07 15:09] LABS: Anion Gap 11.1 mEq/L (5-15); Blood Urea Nitrogen 11 mg/dl (7-17); Calcium 8.2 mg/dl (8.4-10.2); Carbon Dioxide 20 mmol/L (22.0-30.0); Chloride 105 mmol/L (98-107); Creatinine Clearance Estimated 64 mL/min (50-200); Creatinine,Serum 1.00 mg/dl (0.52-1.04); Estimated Glomerular Filt Rate 56 ml/min (>60); GFR (African American) 68 ML/MIN (>60); Glucose 127 mg/dl (74-100); Potassium 4.1 mmoL/L (3.5-5.1); Sodium 132 mmol/L (136-145)
--- NOTE | 2025-09-07 16:10 | PC.NURSE ---
patients O2 RA sat dropped to 84:-89%. patient was sitting up in bed, placed 2 LNC on patient, O2 sat increased to 95%. patient has no complaints of SOA, or pain, patient only states her vision is blurry. and she has a headache, ice pack applied to forehead per patients request and treated per DEC. VSS. notified Janice Guy APRN. patient is awake, alert/orientedx4. currently sitting up watching tv. call light within reach, bed alarm in place.
[2025-09-07] MEDS: ASPIRIN EC 81MG TABLET 81 MG PO (16:27)
[2025-09-07] MEDS: PANTOPRAZOLE 40MG TABLET 40 MG PO (20:19)
[2025-09-07] MEDS: ATORVASTATIN 20MG TABLET 20 MG PO (20:19)
[2025-09-07] MEDS: MONTELUKAST SODIUM 10MG TAB 10 MG PO (20:19)
[2025-09-07 23:54] LABS: Acinetobacter calcoaceticus-ba Not Detected; Bacteroides fragilis Not Detected; CTX-M Not Detected; Candida auris Not Detected; Candida glabrata Not Detected; Enterobacterales Detected; Enterococcus faecalis Not Detected; Enterococcus faecium Not Detected; IMP Not Detected; KPC Not Detected; Klebsiella aerogenes Not Detected; Klebsiella pneumoniae grp Not Detected; NDM Not Detected; OXA-48-like Not Detected; Proteus spp. Not Detected; Salmonella spp. Not Detected; Serratia marcescens Not Detected; Staphylococcus epidermidis Not Detected; Staphylococcus lugdunensis Not Detected; Staphylococcus spp. Not Detected; Stenotrophomonas maltophilia Not Detected; Streptococcus agalactiae(GrpB) Not Detected; Streptococcus pyogenes Group A Not Detected; Streptococcus spp. Not Detected; VIM Not Detected; mcr-1 Not Detected
[2025-09-08] VITALS: BP 100/59; PULSE 70; PULSE 72; RESP 16; TEMP 36.9; O2SAT 96
[2025-09-08] MEDS: LACTATED RINGERS 1000ML 1,000 ML 100 ML IV (00:57)
[2025-09-08] MEDS: OXYCODONE 10MG W/APAP 325MG TABLET 1 EACH PO ×2 (03:39→11:11)
[2025-09-08 04:00] VITALS: BP 103/55; PULSE 74; PULSE 75; RESP 20; TEMP 37.2; O2SAT 95; BMI 21.6
--- NOTE | 2025-09-08 05:45 | PC.NURSE ---
Pt. is alert and orientated x 4. Pt. is on oxygen 2 liters per N/C. Pt. has c/o left sided flank pain and back pain. Pt. Medicated per Mar. IV fluids infusing. Pt. states she feels a kobe better now. Pt. slept well this shift. Pt awoke this morning with Migraine headache states it is 4/10 at present. Pt.. medicated with PRN migraine po medications per MAR. Pt. drinking fluids with no nausea or vomiting. Pt. has purewick in place. Pt. states she feels a little hungary this am. Pt. resting quietly with no other needs. Personal items and call kwong in reach, Bed in low and locked position. Safety measures in place.
--- NOTE | 2025-09-08 05:52 | PC.NURSE ---
Lab phone and patient has a positive blood culture, The anarobic bottle was positive for E. Coli. Terry Parker APRN was notified. states pt. is on Rocephin at this time. No orders received.
[2025-09-08 06:00] LABS: Hematocrit 30.9 % (37.0-47.0); Hemoglobin 9.8 g/dL (12.2-16.2); Immature Granulocytes % 0.4 %; Mean Corpuscular HGB Conc 31.7 g/dL (31.8-35.4); Mean Corpuscular Hemoglobin 28.5 pg (27.0-31.2); Mean Corpuscular Volume 89.8 fl (81-99); Nucleated Red Blood Cells % 0 %; Platelet Count 182 K/mm3 (142-424); Red Blood Count 3.44 M/mm3 (4.20-5.40); Red Cell Distribution Width-SD 38.8 fL; White Blood Count 10.9 K/mm3 (4.8-10.8)
[2025-09-08] MEDS: CEFTRIAXONE 1 GM 1 GM in 0.9 % SODIUM CHLORIDE 50 ML IV (06:03)
[2025-09-08 06:06] LABS: Anion Gap 7.6 mEq/L (5-15); Blood Urea Nitrogen 9 mg/dl (7-17); Calcium 8.2 mg/dl (8.4-10.2); Carbon Dioxide 24 mmol/L (22.0-30.0); Chloride 106 mmol/L (98-107); Creatinine Clearance Estimated 68 mL/min (50-200); Creatinine,Serum 0.90 mg/dl (0.52-1.04); Estimated Glomerular Filt Rate 64 ml/min (>60); GFR (African American) 77 ML/MIN (>60); Glucose 97 mg/dl (74-100); Potassium 4.6 mmoL/L (3.5-5.1); Sodium 133 mmol/L (136-145)
[2025-09-08 08:00] VITALS: BP 118/68; PULSE 65; PULSE 68; RESP 17; TEMP 37; O2SAT 99
[2025-09-08 08:45] VITALS: O2SAT 99
--- NOTE | 2025-09-08 08:50 | HMH.PHAAMS2 ---
- Antimicrobial Stewardship Review culture & sensitivity review Stewardship interventions: culture & sensitivity review, reviewed - no change Comments: gram - rods in urine culture, empiric therapy with ceftriaxone until c&s available
[2025-09-08] MEDS: AMLODIPINE 5MG TABLET 5 MG PO (09:08)
[2025-09-08] MEDS: ASPIRIN EC 81MG TABLET 81 MG PO (09:09)
[2025-09-08] MEDS: GABAPENTIN 600MG TABLET 600 MG PO ×2 (09:09→12:31)
[2025-09-08] MEDS: SERTRALINE 100MG TABLET 100 MG PO (09:10)
[2025-09-08] MEDS: HEPARIN SODIUM 5,000 UNIT/ML VIAL 5000 UNIT SUBCUT (09:10)
--- NOTE | 2025-09-08 11:27 | P.DS_ITS ---
<Statement entered by Jc Rodriguez MD - 09/11/25 11:06> Agree with plan of care as outlined by the [employer]PERATOR. General Admission date:: 09/07/25 Discharge date: 09/08/25 HPI HPI HPI: This is a 60-year-old female who has a past medical history significant for hypertension, hyperlipidemia, irregular heart rate, glaucoma, and legally blind who presents with a chief complaint of being unsteady on her feet. Due to patient's symptoms, she presented to the emergency room for evaluation. While in the emergency room, CTA of the head and neck was negative for any LVO, CT scan of the head was negative for any acute intracranial process, and CT scan of the abdomen and pelvis revealed left kidney stranding consistent with pyelonephritis. Due to these findings, patient has been admitted for further management. Evaluation of the patient, patient states that she started to experience her symptoms approxi-5 days ago with hot and cold cells. She reports having a subjective fever of approximately 104 while at home. She mentions that she has been experiencing left lower flank pain and a sensation of something in her urethra when she urinates. Today, at approximately 1 AM, patient started to experience unsteadiness on her feet. This prompted her to present to the emergency room for evaluation. Patient does have a history of significant nephrolithiasis that led to a right nephrectomy. She is currently denying any focal headache, worsening of vision, paresthesia, lightheadedness, rigors, nausea, vomiting, shortness of breath, dyspnea, hematuria, or diarrhea. Addit ional pertinent vitals obtained including white blood cell count of 13.9, red blood cell count of 4.08, hemoglobin 11.8, hematocrit 35.7, neutrophils of of 79%, potassium of 3, creatinine 2.0, GFR 46, blood glucose 119, magnesium 1.3, AST of 39, and urinalysis revealed 1+ blood/5-10 white blood cells. Hospital Course Hospital Course Hospital Course: Ms. Schulz is a 60-year-old female who presented to the emergency department early yesterday morning with episodes of fever, unsteadiness on feet, left lower flank pain, and occasional urethral pain. She denied dysuria or hematuria. She states that she was unable to walk normally for about 5 hours and was concerned that something was wrong. She states she is legally blind and has significant vision deficits at baseline, no peripheral vision, no depth perception. Denies abdominal pain, chest pain, shortness of breath, headache, difficulty breathing, cough, congestion. Workup in the emergency department was significant for temperature of 100.4, GCS 15, leukocytosis 13.9, mild anemia with a hemoglobin of 11.8, UA positive for blood, leuk esterase, proteinuria, MÓNICA with an elevated creatinine of 1.2, hypokalemia, hypomagnesemia, and negative troponin. Patient had abdomen/pelvis CT which showed rice left kidney along with left pyelonephritis. Patient had CT of head which showed no acute bleed, mass, midline shift, CT angio of head and neck showed no vessel occlusion. At this time a brain MRI was ordered and patient was admitted to the medical surgical floor for continued monitoring. Brain MRI showed a few small foci of increased signal are seen in the white matter, nonspecific, in this age group likely represents ischemic microvascular disease. Patient was started on aspirin 81 mg daily, continue at discharge. Also of note thickening in the bilateral maxillary sinuses greater left than right noted. Patient kept overnight for continued monitoring and treatment of urinary tract infection, left-sided pyelonephritis, and MÓNICA. Patient urine culture resulted at greater than 100,000 CFU gram-negative rods, blood culture BioFire positive for E. coli. Patient was started on ceftriaxone 1 g daily upon admission, will transition to cefdinir 300 mg twice daily at discharge for urinary tract infection and E. coli bacteremia for total of 7 days. Will continue to follow sensitivity for urine and blood culture. Patient endorses feeling much better, denies dizziness or unsteadiness. Denies continued flank pain or painful urination. Vital signs stable, afebrile. Lab work shows resolved leukocytosis, WBC 10.9. Potassium 4.6, normal kidney function with creatinine of 0.9. Patient ambulated with staff in the room and in stiles and was independent. Patient should continue home medication at discharge, follow-up with PCP in approximately 1 week for assessment. Total time spent on discharge 32 minutes in counseling, documentation, chart review, and direct care with patient. Exam Data for Last 24 hours Vital signs and Labs for Last 24 Hours: Temp Pulse Resp BP Pulse Ox O2 Del Method O2 Flow Rate 98.6 F 65 17 118/68 99 Room Air 2.5 09/08/25 08:00 09/08/25 08:00 09/08/25 08:00 09/08/25 08:00 09/08/25 08:45 09/08/25 09:30 09/08/25 08:45 Laboratory Results - last 24 hr 09/07/25 03:50: Urine Color Yellow, Urine Appearance Cloudy, Urine pH 6.0, Ur Specific Pease 1.010, Urine Protein 1+ A, Urine Glucose (UA) Negative, Urine Ketones Negative, Urine Blood 1+ A, Urine Nitrate Negative, Urine Bilirubin Negative, Urine Urobilinogen 0.2, Ur Leukocyte Esterase 1+ A, Ur Squamous Epith Cells Tntc, Urine Bacteria 3+, Urine Opiates Screen Positive H, Urine Methadone Screen Negative, Ur Barbituates Screen Negative, Ur Phencyclidine Scrn Negative, Ur Amphetamines Screen Negative, U Benzodiazepines Scrn Negative, Urine Cocaine Screen Negative, U Marijuana (THC) Screen Negative 09/07/25 06:02: A. baumannii (PCR) Not detected, Bacteroides fragilis Not detected, Tara albicans (PCR) Not detected, Tara auris (PCR) Not detected, C. glabrata (PCR) Not detected, C. krusei (PCR) Not detected, C. parapsilosis (PCR) Not detected, C. tropicalis (PCR) Not detected, Cryptococcus neoformans PCR Not detected, Enterobacterales (PCR) Detected A, Enterococc faecalis PCR Not detected, Enterococc faecium PCR Not detected, E. coli (PCR) Detected A, H. influenzae DNA Not detected, Klebsiella aerogenes (PCR) Not detected, Klebsiella oxytoca PCR Not detected, K. pneumoniae group (PCR) Not detected, List. monocytogenes PCR Not detected, N. meningitidis (PCR) Not detected, Proteus species (PCR) Not detected, Salmonella spp. (PCR) Not detected, Serratia marcescens PCR Not detected, Staphylococcus sp PCR Not detected, Staph aureus (PCR) Not detected, mecA/C & MREJ Resist Gene Not applicable, mecA/C-Methicil Resis Gene Not applicable, Staph epidermidis (PCR) Not detected, Staph lugdunensis (TEM-PCR) Not detected, S. maltophilia (PCR) Not detected, Streptoc occus sp PCR Not detected, S.agalactiae Grp B DHEERAJ Not detected, Strep pneumoniae (PCR) Not detected, S. pyogenes GrpA DHEERAJ Not detected, P. aeruginosa (PCR) Not detected, Linda/B-Vanco Res Genes Not applicable, blaIMP Car res Gene PCR Not detected, KPC-Carbap Res Gene PCR Not detected, blaNDM Car Res Gene PCR Not detected, OXA-48 Carbapenem Resis Gene (PCR) Not detected, blaVIM Car Res Gene PCR Not detected, CTX-M Gene Resistance (PCR) Not detected, MCR-1 Resistance Gene Not detected 09/07/25 14:09: Sodium 132 L, Potassium 4.1 D, Chloride 105, Carbon Dioxide 20 L, Anion Gap 11.1, BUN 11, Creatinine 1.00, Estimated Creat Clear 64, Estimated GFR 56 L, Est GFR ( Amer) 68 D, Glucose 127 H, Calcium 8.2 L 09/08/25 05:03: WBC 10.9 H, RBC 3.44 L, Hgb 9.8 L, Hct 30.9 L, MCV 89.8, MCH 28.5, MCHC 31.7 L, RDW 11.9, Plt Count 182, MPV 12.8 H, Neut % (Auto) 70.3, Lymph % (Auto) 15.4, [place] % (Auto) 12.8 H, Eos % (Auto) 0.8, Baso % (Auto) 0.3, Neut # (Auto) 7.6, Lymph # (Auto) 1.7, [place] # (Auto) 1.4 H, Eos # (Auto) 0.1, Baso # (Auto) 0.0, Sodium 133 L, Potassium 4.6, Chloride 106, Carbon Dioxide 24, Anion Gap 7.6, BUN 9, Creatinine 0.90, Estimated Creat Clear 68, Estimated GFR 64, Est GFR ( Amer) 77, Glucose 97 D, Calcium 8.2 L I & O for Last 24 hours: Intake & Output 09/05/25 09/06/25 09/07/25 09/08/25 23:59 23:59 23:59 23:59 Intake Total 3570 / 3970 770 / 770 Output Total 2600 / 2900 2200 / 2200 Balance 970 / 1070 -1430 / -1430 Weight 68.311 kg 72.393 kg Microbiology Reports for the Last 24 Hours: Microbiology 09/07/25 03:50 Urine,Clean Catch Urine Culture - Preliminary Gram Negative Rods 09/07/25 05:55 Blood Blood Culture - Preliminary NO GROWTH AFTER 24 HOURS 09/07/25 06:02 Blood Blood Culture - Preliminary Constitutional Constitutional: no acute distress, average body habitus and cooperative *Routine HEENT Exam Head: Present normocephalic Eye: Present EOMI and PERRL ENT: Present mucous membranes moist *Routine Neck Exam Neck: Present supple; Absent lymphadenopathy *Routine Respiratory Exam Respiratory: Present CTA bilaterally and normal respiratory effort; Absent wheezes or crackles *Routine Cardiovascular Exam Cardiovascular: Present RRR *Routine Abdominal Exam Abdominal: Present soft and normoactive bowel sounds; Absent tenderness *Routine Rectal Exam Patient deferred: visual exam *Routine Exam Patient deferred: external exam *Routine Extremities Exam Extremities: Present full ROM; Absent cyanosis, clubbing or edema *Routine Skin Exam Skin: Present intact, dry and warm; Absent rash *Routine Neurological Exam Neurological: Present alert, oriented X3, hearing grossly intact and normal speech; Absent vision grossly intact (Glaucoma) Routine Psychiatric Exam Psychiatric: Present normal affect Results Data Completed and Pending Labs on day of discharge: Labs from last 24 hours 09/08/25 09/07/25 09/07/25 05:03 14:09 06:02 WBC 10.9 H RBC 3.44 L Hgb 9.8 L Hct 30.9 L MCV 89.8 MCH 28.5 MCHC 31.7 L RDW 11.9 Plt Count 182 MPV 12.8 H Neut % (Auto) 70.3 Lymph % (Auto) 15.4 [place] % (Auto) 12.8 H Eos % (Auto) 0.8 Baso % (Auto) 0.3 Neut # (Auto) 7.6 Lymph # (Auto) 1.7 [place] # (Auto) 1.4 H Eos # (Auto) 0.1 Baso # (Auto) 0.0 Sodium 133 L 132 L Potassium 4.6 4.1 D Chloride 106 105 Carbon Dioxide 24 20 L Anion Gap 7.6 11.1 BUN 9 11 Creatinine 0.90 1.00 Estimated Creat Clear 68 64 Estimated GFR 64 56 L Est GFR ( Amer) 77 68 D Glucose 97 D 127 H Calcium 8.2 L 8.2 L Urine Color Urine Appearance Urine pH Ur Specific Pease Urine Protein Urine Glucose (UA) Urine Ketones Urine Blood Urine Nitrate Urine Bilirubin Urine Urobilinogen Ur Leukocyte Esterase Ur Squamous Epith Cells Urine Bacteria Urine Opiates Screen Urine Methadone Screen Ur Barbituates Screen Ur Phencyclidine Scrn Ur Amphetamines Screen U Benzodiazepines Scrn Urine Cocaine Screen U Marijuana (THC) Screen A. baumannii (PCR) Not detected Bacteroides fragilis Not detected Tara albicans (PCR) Not detected Tara auris (PCR) Not detected C. glabrata (PCR) Not detected C. krusei (PCR) Not detected C. parapsilosis (PCR) Not detected C. tropicalis (PCR) Not detected Cryptococcus neoformans PCR Not detected Enterobacterales (PCR) Detected A Enterococc faecalis PCR Not detected Enterococc faecium PCR Not detected E. coli (PCR) Detected A H. influenzae DNA Not detected Klebsiella aerogenes (PCR) Not detected Klebsiella oxytoca PCR Not detected K. pneumoniae group (PCR) Not detected List. monocytogenes PCR Not detected N. meningitidis (PCR) Not detected Proteus species (PCR) Not detected Salmonella spp. (PCR) Not detected Serratia marcescens PCR Not detected Staphylococcus sp PCR Not detected Staph aureus (PCR) Not detected mecA/C & MREJ Resist Gene Not applicable mecA/C-Methicil Resis Gene Not applicable Staph epidermidis (PCR) Not detected Staph lugdunensis (TEM-PCR) Not detected S. maltophilia (PCR) Not detected Streptococcus sp PCR Not detected S.agalactiae Grp B DHEERAJ Not detected Strep pneumoniae (PCR) Not detected S. pyogenes GrpA DHEERAJ Not detected P. aeruginosa (PCR) Not detected Linda/B-Vanco Res Genes Not applicable blaIMP Car res Gene PCR Not detected KPC-Carbap Res Gene PCR Not detected blaNDM Car Res Gene PCR Not detected OXA-48 Carbapenem Resis Gene (PCR) Not detected blaVIM Car Res Gene PCR Not detected CTX-M Gene Resistance (PCR) Not detected MCR-1 Resistance Gene Not detected 09/07/25 03:50 WBC RBC Hgb Hct MCV MCH MCHC RDW Plt Count MPV Neut % (Auto) Lymph % (Auto) [place] % (Auto) Eos % (Auto) Baso % (Auto) Neut # (Auto) Lymph # (Auto) [place] # (Auto) Eos # (Auto) Baso # (Auto) Sodium Potassium Chloride Carbon Dioxide Anion Gap BUN Creatinine Estimated Creat Clear Estimated GFR Est GFR ( Amer) Glucose Calcium Urine Color Yellow Urine Appearance Cloudy Urine pH 6.0 Ur Specific Pease 1.010 Urine Protein 1+ A Urine Glucose (UA) Negative Urine Ketones Negative Urine Blood 1+ A Urine Nitrate Negative Urine Bilirubin Negative Urine Urobilinogen 0.2 Ur Leukocyte Esterase 1+ A Ur Squamous Epith Cells Tntc Urine Bacteria 3+ Urine Opiates Screen Positive H Urine Methadone Screen Negative Ur Barbituates Screen Negative Ur Phencyclidine Scrn Negative Ur Amphetamines Screen Negative U Benzodiazepines Scrn Negative Urine Cocaine Screen Negative U Marijuana (THC) Screen Negative A. baumannii (PCR) Bacteroides fragilis Tara albicans (PCR) Tara auris (PCR) C. glabrata (PCR) C. krusei (PCR) C. parapsilosis (PCR) C. tropicalis (PCR) Cryptococcus neoformans PCR Enterobacterales (PCR) Enterococc faecalis PCR Enterococc faecium PCR E. coli (PCR) H. influenzae DNA Klebsiella aerogenes (PCR) Klebsiella oxytoca PCR K. pneumoniae group (PCR) List. monocytogenes PCR N. meningitidis (PCR) Proteus species (PCR) Salmonella spp. (PCR) Serratia marcescens PCR Staphylococcus sp PCR Staph aureus (PCR) mecA/C & MREJ Resist Gene mecA/C-Methicil Resis Gene Staph epidermidis (PCR) Staph lugdunensis (TEM-PCR) S. maltophilia (PCR) Streptococcus sp PCR S.agalactiae Grp B DHEERAJ Strep pneumoniae (PCR) S. pyogenes GrpA DHEERAJ P. aeruginosa (PCR) Linda/B-Vanco Res Genes blaIMP Car res Gene PCR KPC-Carbap Res Gene PCR blaNDM Car Res Gene PCR OXA-48 Carbapenem Resis Gene (PCR) blaVIM Car Res Gene PCR CTX-M Gene Resistance (PCR) MCR-1 Resistance Gene Preliminary micro results at discharge 09/07/25 03:50 Urine Culture - Preliminary Urine,Clean Catch Gram Negative Rods 09/07/25 05:55 Blood Culture - Preliminary Blood NO GROWTH AFTER 24 HOURS 09/07/25 06:02 Blood Culture - Preliminary Blood DS: Diagnosis Discharge Diagnosis (1) Pyelonephritis: Status: Acute Code(s): N12 - Tubulo-interstitial nephritis, not specified as acute or chronic (2) Leukocytosis: Status: Acute Code(s): D72.829 - Elevated white blood cell count, unspecified Qualifiers: Leukocytosis type: unspecified Qualified Code(s): D72.829 - Elevated white blood cell count, unspecified (3) Fever: Status: Acute Code(s): R50.9 - Fever, unspecified Qualifiers: Fever type: unspecified Qualified Code(s): R50.9 - Fever, unspecified (4) Hypokalemia: Status: Acute Code(s): E87.6 - Hypokalemia (5) Acute kidney injury: Status: Acute Code(s): N17.9 - Acute kidney failure, unspecified (6) Hypomagnesemia: Status: Acute Code(s): E83.42 - Hypomagnesemia (7) Bacteremia due to Escherichia coli: Status: Acute Code(s): R78.81 - Bacteremia; B96.20 - Unspecified Escherichia coli [E. coli] as the cause of diseases classified elsewhere (8) Glaucoma: Status: Acute Code(s): H40.9 - Unspecified glaucoma Meds Home Medications and Allergies Home Medications ?Medication ?Instructions ?Recorded ?Confirmed ?Type montelukast 10 mg tablet 10 mg PO HS 09/23/18 5 History bupropion HCl 300 mg 24 hr tablet, 300 mg PO DAILY 09/07/25 History extended release (Wellbutrin XL) omeprazole 40 mg capsule,delayed 40 mg PO DAILY 09/07/25 History release sertraline 50 mg tablet 100 mg PO DAILY 12/30/22 History gabapentin 600 mg tablet 600 mg PO TID Pain #90 tabs 06/10/23 09/07/25 Rx amlodipine 5 mg tablet 5 mg PO DAILY 09/07/2509/07 History atorvastatin 20 mg tablet 20 mg PO HS 09/07/25 5 History oxycodone-acetaminophen 10 mg-325 1 tab PO Q6H PRN LOW BACK PAIN 09/07/25 09/07/25 History mg tablet rizatriptan 10 mg tablet 10 mg PO DAILYP PRN Migraine 09/07/25 09/07/25 History Headache aspirin 81 mg tablet,delayed 81 mg PO DAILY #0 tabs Rx release cefdinir 300 mg capsule 300 mg PO Q12H 5 days #10 ca ps 09/08/25 Rx New Prescriptions to Start Prescriptions: cefdinir Hill,Janice Allergies Allergy/AdvReac Type Severity Reaction Status Date / Time ciprofloxacin Allergy Severe Difficulty Verified 09/24/23 09:20 Breathing tramadol Allergy Verified 09/24/23 09:20 Discharge Plan Disposition Patient Disposition: Home, Self-Care Condition: Good Follow up Plan Follow up with: Kika Perkins [Primary Care Provider, Medical] - 09/18/25 10:40 am Prescriptions/Medication Reconciliation: New aspirin 81 mg Tablet,Delayed Release (Dr/Ec) 81 mg PO DAILY Qty: 0 0RF cefdinir 300 mg capsule 300 mg PO Q12H 5 Days Qty: 10 0RF Continued bupropion HCl [Wellbutrin XL] 300 mg tablet extended release 24 hr 300 mg PO DAILY omeprazole 40 mg capsule,delayed release(DR/EC) 40 mg PO DAILY sertraline 50 mg tablet 100 mg PO DAILY montelukast 10 mg tablet 10 mg PO HS gabapentin 600 mg tablet 600 mg PO TID Qty: 90 0RF atorvastatin 20 mg tablet 20 mg PO HS rizatriptan 10 mg tablet 10 mg PO DAILYP PRN (Reason: Migraine Headache) amlodipine 5 mg tablet 5 mg PO DAILY oxycodone-acetaminophen 10-325 mg tablet 1 tab PO Q6H PRN (Reason: LOW BACK PAIN) Problem Reconciliation Problems Reviewed?: Yes Patient Discharge Instructions ACTIVITY: Continue current activity DIET: continue same diet Patient Instructions: DI for Kidney Infection, DI for Hypokalemia, DI for Hypomagnesemia Print Language: Urdu Providers Primary Care Provider: Kika Perkins Admit Provider: Jc Rodriguez Attending Provider: Jc Rodriguez
--- NOTE | 2025-09-11 11:21 | SW/DCPLANNER ---
Spoke with patient on the phone. Patient stated that she is doing pretty good. Patient stated that she is aware of her upcoming appointment. Patient stated that she was able to get her [facility] medicine from [facility]. Patient stated that she has no concerns or questions at this time. Ahsan Hawkins
--- NOTE | 2025-09-12 10:13 | PC.NURSE ---
Final urine culture forwarded to the hospitalist as she was admitted.
--- NOTE | 2025-09-14 08:47 | PC.NURSE ---
Prelim blood culture forwarded to the hospitalist as the pt was admitted.
== END 2025-09-08 13:00 | disposition home or self-care (01) ==
LOC: ER 05:57 → 2ND 06:08
PROVIDERS: Nurse Practitioner Family; Admitting Provider Student in an Organized Health Care Education/Training Program; Emergency Provider Emergency Medicine; PCP Nurse Practitioner Family; Visit Provider Student in an Organized Health Care Education/Training Program
DX: N12 Tubulo-interstitial nephritis, not specified as acute or chronic (principal); E87.6 Hypokalemia; N17.9 Acute kidney failure, unspecified; E83.42 Hypomagnesemia; R78.81 Bacteremia; B96.20 Unspecified Escherichia coli [E. coli] as the cause of diseases classified elsewhere; H40.9 Unspecified glaucoma; M54.12 Radiculopathy, cervical region; G43.909 Migraine, unspecified, not intractable, without status migrainosus; Z90.49 Acquired absence of other specified parts of digestive tract; Z90.5 Acquired absence of kidney; F17.210 Nicotine dependence, cigarettes, uncomplicated; Z88.1 Allergy status to other antibiotic agents; Z88.5 Allergy status to narcotic agent; Z79.82 Long term (current) use of aspirin; Z79.899 Other long term (current) drug therapy; H54.8 Legal blindness, as defined in USA; Z90.710 Acquired absence of both cervix and uterus
CPT/HCPCS: 0223U; 36415; 70450; 70496; 70498; 70551; 74177; 80048; 80053; 80061; 80307; 80320; 81001; 83605; 83735; 84145; 84484; 85007; 85025; 85027; 85610; 85730; 86140; 86803; 87040; 87077; 87086; 87088; 87154; 87186; 87389; 93005; 99285; G0378; J0696; J1644; J2405; J3475; J7120; Q9967